=== PATIENT | female | born 1970 | race African-American/Black ===

== ENCOUNTER 2017-01-02 10:15 | Inpatient (IN) | payer OTHER ==
[2017-01-02 11:27] VITALS: BMI 22.2
--- NOTE | 2017-01-02 13:25 | HP ---
COWS - Scale Resting Pulse: 1= [place] 81-100 Sweatin= Chills/Flushing Restless Observation: 3= Extraneous Movement Pupil Size: 0= Normal to Room Light Bone or Joint Aches: 4=Acute Joint/Muscle Pain Runny Nose/ Eye Tearin= Nasal Congestion GI Upset > 30mins: 1= Stomach Cramp Tremor Observation: 1= Tremor [place], Not Seen Yawning Observation: 2= >3x During Session Anxiety or Irritability: 2=Irritable/Anxious Goose Flesh Skin: 0=Smooth Skin COWS Score: 16 Admission ROS S - HPI Chief Complaint: DETOX TX FOR HEROIN DEPENDENCE Allergies/Adverse Reactions: Allergies Allergy/AdvReac Type Severity Reaction Status Date / Time No Known Allergies Allergy Verified 01/02/17 11:57 History of Present Illness: 46 Y/O AA/FEMALE WITH A HX OF HEROIN/CRACK DEPENDENCE SEEKING DETOX TX. FIRST TIME HERE. Exam Limitations: No Limitations - Ebola screening Have you traveled outside of the country in the last 21 days: No Have you had contact with anyone from an Ebola affected area: No Have you been sick,other than usual withdrawal symptoms: No - Review of Systems Constitutional: Chills, Loss of Appetite, Night Sweats, Changes in sleep, Unintentional Wgt. Loss EENT: reports: Tearing, Nose Congestion, Dental Problems (MISSING TEETH) Respiratory: reports: Shortness of Breath (HX BRONCHIAL ASTHMA), Wheezing Cardiac: reports: Lightheadedness GI: reports: Constipated, Diarrhea, Nausea, Poor Appetite, Poor Fluid Intake, Vomiting : reports: Frequency, Urgency Musculoskeletal: reports: Back Pain, Joint Pain, Muscle Pain Integumentary: reports: Rash (ITCHY ON BOTH EYELIDS--USES RX CREAM ON IT BUT LEFT IT HOME.) Neuro: reports: Headache, Seizure, Tremors, Dizziness Endocrine: reports: No Symptoms Reported Hematology: reports: No Symptoms Reported Psychiatric: reports: Orientated x3, Depressed Other Systems: Reviewed and Negative Patient History - Patient Medical History Hx Anemia: Yes Hx Asthma: Yes (MDI) Hx Chronic Obstructive Pulmonary Disease (COPD): No Hx Cardiac Disorders: No Hx Hypertension: No Hx Hypercholesterolemia: No Hx Seizures: Yes (r/t head tarauma-last episode was at age 21) Hx Diabetes: No Hx Gastrointestinal Disorders: No Hx Genitourinary Disorders: No Hx Sexually Transmitted Disorders: No Hx Renal Disease (ESRD): No Hx Thyroid Disease: No Hx Human Immunodeficiency Virus (HIV): No (NEGATIVE HX) Hx Hepatitis C: No Hx Depression: Yes (ON MED) Hx Suicide Attempt: No (DENIES) Hx Schizophrenia: No - Patient Surgical History Past Surgical History: No Hx Neurologic Surgery: No Hx Cataract Extraction: No Hx Cardiac Surgery: No Hx Lung Surgery: No Hx Breast Surgery: No Hx Breast Biopsy: No Hx Abdominal Surgery: No Hx Appendectomy: No Hx Cholecystectomy: No Hx Genitourinary Surgery: No Hx Section: No Hx Orthopedic Surgery: No Hx Hysterectomy: No Anesthesia Reaction: No - PPD History Previous Implant?: Yes Documented Results: Negative w/o proof Implanted On Prior R Admission?: No PPD to be Administered?: Yes - Reproductive History Patient is a Female of Child Bearing Age (11 -55 yrs old): Yes Last Menstrual Period: 12/06/16 Patient : No - Smoking Cessation Smoking history: Current every day smoker Have you smoked in the past 12 months: Yes Aproximately how many cigarettes per day: 6 Hx Chewing Tobacco Use: No Initiated information on smoking cessation: Yes 'Breaking Loose' booklet given: 01/02/17 - Substance & Tx. History Hx Alcohol Use: ("ONCE IN A BLUE") Hx Substance Use: Yes (HEROIN/COCAINE) Substance Use Type: Alcohol (ON OCASSIONS), Cocaine, Heroin Hx Substance Use Treatment: Yes (OPD) - Substances Abused Heroin Route: Inhalation Frequency: Daily Amount used: 9 bags Age of first use: 24 Date of Last Use: 01/01/17 Crack Route: Smoking Frequency: Daily Amount used: $100 Age of first use: 30 Date of Last Use: 01/01/17 Family Disease History - Family Disease History Family History: Denies Admission Physical Exam BHS - Vital Signs Vital Signs: Vital Signs - 24 hr 01/02/17 11:21 Temperature 96.3 F L Pulse Rate 83 Respiratory 20 Rate Blood Pressure 110/64 - Physical General Appearance: Yes: Moderate Distress, Irritable, Anxious HEENTM: Yes: EOMI, Normocephalic, TEE, Pharynx Normal Respiratory: Yes: Chest Non-Tender, Lungs Clear, Normal Breath Sounds, No Respiratory Distress Neck: Yes: No masses,lesions,Nodules, Supple, Trachea in good position Breast: Yes: Breast Exam Deferred Cardiology: Yes: Regular Rhythm, Regular Rate, S1, S2 Abdominal: Yes: Normal Bowel Sounds, Non Tender, Flat, Soft Genitourinary: Yes: Other (N/C) Back: Yes: Within Normal Limits Musculoskeletal: Yes: full range of Motion, Gait Steady Extremities: Yes: Normal Range of Motion, Non-Tender Neurological: Yes: transonic engineer II-XII NML intact, Fully Oriented, Alert Integumentary: Yes: Dry, Warm Lymphatic: Yes: Within Normal Limits - Diagnostic (1) Opioid dependence with withdrawal Current Visit: Yes Status: Acute (2) Cocaine dependence, uncomplicated Current Visit: Yes Status: Acute (3) History of asthma Current Visit: Yes Status: Chronic (4) Seizure after head injury Current Visit: Yes Status: Suspected Comment: A CHILD--TV FELL ON HEAD Cleared for Admission [facility] - Detox or Rehab [facility] Level of Care: Medically Managed Detox Regimen/Protocol: Methadone [facility] Breath Alcohol Content Breath Alcohol Content: 0 Urine Pregancy Test - Result Urine Test Results: Negative- NO Line Present Urine Drug Screen - Results Drug Screen Negative: No Urine Drug Screen Results: DENISA-Cocaine, OPI-Opiates, MTD-Methadone, TCA- Tricyclic Antidepress
[2017-01-02] MEDS ORDERED: LOPERAMIDE HCL 2 MG CAPSULE PO PRN (13:35)
[2017-01-02] MEDS ORDERED: MENTHOL/PHENOL 1 EACH UD MM PRN (13:35)
[2017-01-02] MEDS ORDERED: IBUPROFEN 400 MG TABLET (FP) PO PRN (13:35)
[2017-01-02] MEDS ORDERED: diphenhydrAMINE HCL 50 MG CAPSULE PO PRN (13:35)
[2017-01-02] MEDS ORDERED: MAGNESIUM HYDROX 2400MG/30ML ORAL SUSPENSION 30 ML CUP PO PRN (13:35)
[2017-01-02] MEDS ORDERED: MAGNESIUM CITRATE 300 ML BOTTLE PO PRN (13:35)
[2017-01-02] MEDS ORDERED: diazePAM 5 MG TABLET PO PRN (13:35)
[2017-01-02] MEDS ORDERED: hydrOXYzine PAMOATE 25 MG CAPSULE (FP) PO PRN (13:35)
[2017-01-02] MEDS ORDERED: MAG HYDROX/AL HYDROX/SIMETH 30 ML UNIT-DOSE CUP PO PRN (13:35)
[2017-01-02] MEDS ORDERED: P-EPHED 60MG/TRIPROLIDI 2.5MG TABLET PO PRN (13:35)
[2017-01-02] MEDS ORDERED: guaiFENesin/D-METHORPHAN HB 10 ML UNIT-DOSE CUPS PO PRN (13:35)
[2017-01-02] MEDS ORDERED: NICOTINE POLACRILEX 2 MG GUM BUC PRN (13:35)
[2017-01-02] MEDS ORDERED: ACETAMINOPHEN 325 MG TABLET (FP) PO PRN (13:35)
[2017-01-02] MEDS ORDERED: ALBUTEROL SO4 18 GM HFA INHALER IH PRN (13:38)
[2017-01-02] MEDS ORDERED: METHADONE HCL 10 MG TABLET (FOR DETOX USE ONLY) PO ONE ×2 (14:00→23:00)
[2017-01-02] MEDS: NICOTINE 14 MG/24 HOURS TOPICAL PATCH TD SCH (15:05)
--- NOTE | 2017-01-02 16:14 | CONSULT ---
[facility] Psychiatric Consult - Data Date of interview: 01/02/17 Admission source: [facility] Identifying data: First admission to [facility] for this 46 y/o AA female seeking detox treatment,[address] [place],for heroin and cocaine dependence.Patient is single,a mother of six,domiciled,unemployed and supported on SSI benefits. Substance Abuse History: - Smoking Cessation. Smoking history: Current every day smoker. Have you smoked in the past 12 months: Yes. Aproximately how many cigarettes per day: 6. Hx Chewing Tobacco Use: No. Initiated information on smoking cessation: Yes. 'Breaking Loose' booklet given: 01/02/17. - Substance & Tx. History. Hx Alcohol Use: ("ONCE IN A BLUE"). Hx Substance Use: Yes ( HEROIN/COCAINE). Substance Use Type: Alcohol (ON OCASSIONS), Cocaine, Heroin. Hx Substance Use Treatment: Yes (OPD). - Substances Abused. Heroin. Route : Inhalation. Frequency: Daily. Amount used: 9 bags. Age of first use: 24. Date of Last Use: 01/01/17. Crack. Route: Smoking. Frequency: Daily. Amount used: $100. Age of first use: 30. Date of Last Use: 01/01/17. Confirmed by patient. Medical History: Bronchial asthma,low back pain,anemia and a history of seizures (post head trauma at age 18). Psychiatric History: No reported history of psychiatric hospitalizations.Diagnosed with MDD.Prescribed seroquel 200 mg/hs + trazodone 150 mg/hs.Ms Pittman gets her psychiatric OPD care at the [facility] in [facility].She denies history of suicide attempts. Physical/Sexual Abuse/Trauma History: Patient denies. Additional Comment: Urine Drug Screen Results: DENISA-Cocaine, OPI-Opiates, MTD- Methadone, TCA-Tricyclic Antidepressant.Noted. Mental Status Exam - Mental Status Exam Alert and Oriented to: Time, Place, Person Cognitive Function: Good Patient Appearance: Well Groomed Mood: Withdrawn Affect: Constricted Patient Behavior: Sedated (light sedation), Fatigued, Cooperative Speech Pattern: Clear Voice Loudness: Normal Thought Process: Goal Oriented Thought Disorder: Not Present Hallucinations: Denies Suicidal Ideation: Denies Homicidal Ideation: Denies Insight/Judgement: Poor Sleep: Poorly, Difficulty falling asleep Appetite: Fair Muscle strength/Tone: Normal Gait/Station: Normal Psychiatric Findings - Problem List ([place] 1, 2,3) (1) Cocaine dependence, uncomplicated Current Visit: Yes Status: Acute (2) Opioid dependence with withdrawal Current Visit: Yes Status: Acute (3) Nicotine dependence Current Visit: Yes Status: Acute (4) Substance induced mood disorder Current Visit: Yes Status: Acute (5) Mood disorder Current Visit: Yes Status: Chronic (6) History of asthma Current Visit: Yes Status: Chronic (7) Seizure after head injury Current Visit: Yes Status: Suspected Comment: A CHILD--TV FELL ON HEAD - Initial Treatment Plan Initial Treatment Plan: Psychoeducation.Detoxification is initiated.Medications : seroquel 100 mg po hs + trazodone 50 mg po hs.Pharmacy claims : no data.No information about date of last medication intake.Call made to Pharmacy on file, [facility] @ [phone] (patient gave verbal authorization) : no seroquel or trazodone filled or prescribed.Ms Pittman insists on resuming these two medications.Will initiate treatment with seroquel 100 mg po hs + trazodone 50 mg po hs.Side effects/benefits discussed with patient.She is in agreement with this careplan.Observation.
[2017-01-02 19:07] LABS: URINE APPEARANCE SLCLOUDY; URINE BILIRUBIN NEGATIVE (NEGATIVE); URINE BLOOD NEGATIVE (NEGATIVE); URINE COLOR AMBER; URINE GLUCOSE (UA) NEGATIVE (NEGATIVE); URINE KETONE NEGATIVE (NEGATIVE); URINE LEUK ESTERASE NEGATIVE (NEGATIVE); URINE NITRITE NEGATIVE (NEGATIVE); URINE UROBILINOGEN 2.0 E.U/dl E.U./dl (0.2-1.0)
[2017-01-02 19:08] LABS: URINE PROTEIN 1+ (NEGATIVE)
[2017-01-02 19:12] LABS: URINE BACTERIA MANY /hpf (NONE SEEN); URINE HYALINE CAST 2 /lpf; URINE MUCUS MANY; URINE RBC 2 /hpf (0-3); URINE WBC 4 /hpf (3-5)
[2017-01-02 19:48] LABS: HIV 1 & 2 AB NEGATIVE; HIV 1 AGp24 NEGATIVE
[2017-01-02] MEDS: traZODone HCL 50 MG TABLET (FP) PO SCH (22:33)
[2017-01-02] MEDS: QUEtiapine FUMARATE 100 MG TABLET (FP) PO SCH (22:33)
[2017-01-02] MEDS: THIAMINE HCL 100 MG TABLET (FP) PO SCH (22:33)
[2017-01-03] MEDS ORDERED: METHADONE HCL 10 MG TABLET (FOR DETOX USE ONLY) PO ONE (10:00)
[2017-01-03 10:03] LABS: MCH 25.9 pg (25.7-33.7); MCHC 32.3 g/dl (32.0-36.0); MEAN CELL VOLUME 80.2 fl (80-96); MEAN PLT VOLUME 8.9 fl (7.5-11.1); PLATELET COUNT 201 K/MM3 (134-434); RDW 17.3 % (11.6-15.6); WHITE BLOOD COUNT 3.5 K/mm3 (4.0-10.0)
[2017-01-03] MEDS: PRENATAL VITAMINS W/ FOLIC ACID TABLET (FP) PO SCH (10:25)
[2017-01-03] MEDS: NICOTINE 14 MG/24 HOURS TOPICAL PATCH TD SCH (10:27)
--- NOTE | 2017-01-03 11:01 | PN ---
BHS COWS - Scale Resting Pulse: 0= [place] 80 or Below Sweatin=Flushed/Facial Moisture Restless Observation: 1= Difficult to Sit Still Pupil Size: 0= Normal to Room Light Bone or Joint Aches: 2= Severe Diffuse Aches Runny Nose/ Eye Tearin= Nasal Congestion GI Upset > 30mins: 1= Stomach Cramp Tremor Observation of Outstretched Hands: 2= Slight Tremor Visible Yawning Observation: 2= >3x During Session Anxiety or Irritability: 2=Irritable/Anxious Goose Flesh Skin: 0=Smooth Skin COWS Score: 13 BHS Progress Note (SOAP) Subjective: shakes sweats irritable agitation body aches Objective: 01/03/17 11:00 Vital Signs Temperature 98.2 F 01/03/17 09:13 Pulse Rate 72 01/03/17 09:13 Respiratory Rate 16 01/03/17 09:13 Blood Pressure 125/71 01/03/17 09:13 O2 Sat by Pulse Oximetry (%) Laboratory Tests 01/02/17 01/02/17 01/03/17 13:15 17:30 06:00 WBC 3.5 L RBC 4.65 Hgb 12.0 Hct 37.3 MCV 80.2 MCHC 32.3 RDW 17.3 H Plt Count 201 MPV 8.9 Urine Color [place] Urine Appearance Slcloudy Urine pH 5.0 Ur Specific [place] 1.020 Urine Protein 1+ H Urine Glucose (UA) Negative Urine Ketones Negative Urine Blood Negative Urine Nitrite Negative Urine Bilirubin Negative Urine Urobilinogen 2.0 e.u/dl H Ur Leukocyte Esterase Negative Urine RBC 2 Urine WBC 4 Ur Epithelial Cells Few Urine Bacteria Many Hyaline Casts 2 Urine Mucus Many HIV 1&2 Antibody Screen Negative HIV P24 Antigen Negative repeat u/a labs pending awake/alert ambulating no acute distress Assessment: 01/03/17 11:01 withdrawal sx Plan: continue detox increase fluids labs pending
[2017-01-03 11:02] LABS: ALBUMIN 3.6 g/dl (3.4-5.0); ALK PHOS 75 U/L (45-117); ANION GAP 8 (8-16); BILIRUBIN,TOTAL 0.4 mg/dL (0.2-1.0); CALCIUM 8.3 mg/dL (8.5-10.1); CO2 27 mmol/L (21-32); COCKROFT - GAULT 119.085; CREATININE 0.6 mg/dL (0.55-1.02); GLUCOSE,RANDOM 70 mg/dL (74-106); SGOT/AST 19 U/L (15-37); SGPT/ALT 16 U/L (12-78); TOT PROT 6.9 g/dl (6.4-8.2)
[2017-01-03 15:12] LABS: SICKLE CELL SCREEN NEGATIVE (NEGATIVE)
--- NOTE | 2017-01-03 17:38 | EKG ---
Test Reason : Blood Pressure : / mmHG Vent. Rate : 082 BPM Atrial Rate : 082 BPM P-R Int : 162 ms QRS Dur : 086 ms QT Int : 408 ms P-R-T Axes : 080 079 079 degrees QTc Int : 476 ms NORMAL SINUS RHYTHM T WAVE ABNORMALITY, CONSIDER ANTERIOR ISCHEMIA ABNORMAL ECG NO PREVIOUS ECGS AVAILABLE Confirmed by PHIL ADAMSON MD ([id number]) on 01/03/2017 5:37:45 PM Referred By: Confirmed By:PHIL ADAMSON MD
[2017-01-03] MEDS: QUEtiapine FUMARATE 100 MG TABLET (FP) PO SCH (22:38)
[2017-01-03] MEDS: traZODone HCL 50 MG TABLET (FP) PO SCH (22:38)
[2017-01-03] MEDS: THIAMINE HCL 100 MG TABLET (FP) PO SCH (22:38)
[2017-01-04] MEDS ORDERED: COLLOIDAL OATMEAL 1 BAR EACH TP PRN (09:18)
[2017-01-04] MEDS ORDERED: CYCLOBENZAPRINE HCL 10 MG TABLET (FP) PO PRN (09:19)
--- NOTE | 2017-01-04 09:22 | PN ---
BHS COWS - Scale Resting Pulse: 0= [place] 80 or Below Sweatin= Chills/Flushing Restless Observation: 3= Extraneous Movement Pupil Size: 1= Pupils >than Normal Bone or Joint Aches: 2= Severe Diffuse Aches Runny Nose/ Eye Tearin= Runny Nose/Eyes GI Upset > 30mins: 2= Nausea/Diarrhea Tremor Observation of Outstretched Hands: 2= Slight Tremor Visible Yawning Observation: 1= 1-2x During Session Anxiety or Irritability: 2=Irritable/Anxious Goose Flesh Skin: 0=Smooth Skin COWS Score: 16 BHS Progress Note (SOAP) Subjective: ALERT,IRRITABLE,ANXIOUS,INTERRUPTED SLEEP,TREMOR,PAIN IN THE BODY AND BACK Objective: 01/04/17 09:21 Laboratory Last Values WBC 3.5 K/mm3 (4.0-10.0) L 01/03/17 06:00 RBC 4.65 M/mm3 (3.60-5.2) 01/03/17 06:00 Hgb 12.0 GM/dL (10.7-15.3) 01/03/17 06:00 Hct 37.3 % (32.4-45.2) 01/03/17 06:00 MCV 80.2 fl (80-96) 01/03/17 06:00 MCHC 32.3 g/dl (32.0-36.0) 01/03/17 06:00 RDW 17.3 % (11.6-15.6) H 01/03/17 06:00 Plt Count 201 K/MM3 (134-434) 01/03/17 06:00 MPV 8.9 fl (7.5-11.1) 01/03/17 06:00 Sickle Cell Screen Negative (NEGATIVE) 01/03/17 06:00 Sodium 139 mmol/L (136-145) 01/03/17 06:00 Potassium 4.2 mmol/L (3.5-5.1) 01/03/17 06:00 Chloride 104 mmol/L (98-107) 01/03/17 06:00 Carbon Dioxide 27 mmol/L (21-32) 01/03/17 06:00 Anion Gap 8 (8-16) 01/03/17 06:00 BUN 5 mg/dL (7-18) L 01/03/17 06:00 Creatinine 0.6 mg/dL (0.55-1.02) 01/03/17 06:00 Creat Clearance w eGFR > 60 (>60) 01/03/17 06:00 Random Glucose 70 mg/dL (74-106) L 01/03/17 06:00 Calcium 8.3 mg/dL (8.5-10.1) L 01/03/17 06:00 Total Bilirubin 0.4 mg/dL (0.2-1.0) 01/03/17 06:00 AST 19 U/L (15-37) 01/03/17 06:00 ALT 16 U/L (12-78) 01/03/17 06:00 Alkaline Phosphatase 75 U/L (45-117) 01/03/17 06:00 Total Protein 6.9 g/dl (6.4-8.2) 01/03/17 06:00 Albumin 3.6 g/dl (3.4-5.0) 01/03/17 06:00 Urine Color Belkis 01/02/17 17:30 Urine Appearance Slcloudy 01/02/17 17:30 Urine pH 5.0 (5.0-8.0) 01/02/17 17:30 Ur Specific [place] 1.020 (1.001-1.035) 01/02/17 17:30 Urine Protein 1+ (NEGATIVE) H 01/02/17 17:30 Urine Glucose (UA) Negative (NEGATIVE) 01/02/17 17:30 Urine Ketones Negative (NEGATIVE) 01/02/17 17:30 Urine Blood Negative (NEGATIVE) 01/02/17 17:30 Urine Nitrite Negative (NEGATIVE) 01/02/17 17:30 Urine Bilirubin Negative (NEGATIVE) 01/02/17 17:30 Urine Urobilinogen 2.0 e.u/dl E.U./dl (0.2-1.0) H 01/02/17 17:30 Ur Leukocyte Esterase Negative (NEGATIVE) 01/02/17 17:30 Urine RBC 2 /hpf (0-3) 01/02/17 17:30 Urine WBC 4 /hpf (3-5) 01/02/17 17:30 Ur Epithelial Cells Few /hpf (FEW) 01/02/17 17:30 Urine Bacteria Many /hpf (NONE SEEN) 01/02/17 17:30 Hyaline Casts 2 /lpf 01/02/17 17:30 Urine Mucus Many 01/02/17 17:30 RPR Titer Nonreactive (NONREACTIVE) 01/03/17 06:00 HIV 1&2 Antibody Screen Negative 01/02/17 13:15 HIV P24 Antigen Negative 01/02/17 13:15 Vital Signs Temperature 97.9 F 01/04/17 06:28 Pulse Rate 55 L 01/04/17 06:28 Respiratory Rate 16 01/04/17 06:28 Blood Pressure 120/67 01/04/17 06:28 O2 Sat by Pulse Oximetry (%) Assessment: 01/04/17 09:22 WITHDRAWAL SYMPTOM Plan: CONTINUE DETOX
[2017-01-04] MEDS ORDERED: METHADONE HCL 5 MG TABLET (FOR DETOX USE ONLY) PO ONE (10:00)
[2017-01-04] MEDS: PRENATAL VITAMINS W/ FOLIC ACID TABLET (FP) PO SCH (10:20)
[2017-01-04] MEDS: NICOTINE 14 MG/24 HOURS TOPICAL PATCH TD SCH (10:22)
[2017-01-04] MEDS: cloNIDine HCL 0.1 MG TABLET PO SCH ×2 (11:34→22:34)
[2017-01-04] MEDS: traZODone HCL 50 MG TABLET (FP) PO SCH (22:34)
[2017-01-04] MEDS: QUEtiapine FUMARATE 100 MG TABLET (FP) PO SCH (22:34)
[2017-01-04] MEDS: THIAMINE HCL 100 MG TABLET (FP) PO SCH (22:34)
[2017-01-05] MEDS ORDERED: METHADONE HCL 5 MG TABLET (FOR DETOX USE ONLY) PO ONE (10:00)
[2017-01-05] MEDS: PRENATAL VITAMINS W/ FOLIC ACID TABLET (FP) PO SCH (10:24)
[2017-01-05] MEDS: cloNIDine HCL 0.1 MG TABLET PO SCH ×2 (10:25→22:14)
[2017-01-05] MEDS: NICOTINE 14 MG/24 HOURS TOPICAL PATCH TD SCH (10:25)
[2017-01-05] MEDS ORDERED: HYDROCORTISONE 1% TOPICAL CREAM 30 GM TUBE TP PRN (11:58)
--- NOTE | 2017-01-05 12:05 | PN ---
S Progress Note (SOAP) Subjective: anxiety, interrupted sleep, muscle aches,facial rash Objective: 01/05/17 12:02 Vital Signs - 8 hr 01/05/17 01/05/17 06:00 10:33 Temperature 98.1 F 98.6 F Pulse Rate 54 L 66 Respiratory 18 18 Rate Blood Pressure 125/66 126/70 Laboratory Last Values WBC 3.5 K/mm3 (4.0-10.0) L 01/03/17 06:00 RBC 4.65 M/mm3 (3.60-5.2) 01/03/17 06:00 Hgb 12.0 GM/dL (10.7-15.3) 01/03/17 06:00 Hct 37.3 % (32.4-45.2) 01/03/17 06:00 MCV 80.2 fl (80-96) 01/03/17 06:00 MCHC 32.3 g/dl (32.0-36.0) 01/03/17 06:00 RDW 17.3 % (11.6-15.6) H 01/03/17 06:00 Plt Count 201 K/MM3 (134-434) 01/03/17 06:00 MPV 8.9 fl (7.5-11.1) 01/03/17 06:00 Sickle Cell Screen Negative (NEGATIVE) 01/03/17 06:00 Sodium 139 mmol/L (136-145) 01/03/17 06:00 Potassium 4.2 mmol/L (3.5-5.1) 01/03/17 06:00 Chloride 104 mmol/L (98-107) 01/03/17 06:00 Carbon Dioxide 27 mmol/L (21-32) 01/03/17 06:00 Anion Gap 8 (8-16) 01/03/17 06:00 BUN 5 mg/dL (7-18) L 01/03/17 06:00 Creatinine 0.6 mg/dL (0.55-1.02) 01/03/17 06:00 Creat Clearance w eGFR > 60 (>60) 01/03/17 06:00 Random Glucose 70 mg/dL (74-106) L 01/03/17 06:00 Calcium 8.3 mg/dL (8.5-10.1) L 01/03/17 06:00 Total Bilirubin 0.4 mg/dL (0.2-1.0) 01/03/17 06:00 AST 19 U/L (15-37) 01/03/17 06:00 ALT 16 U/L (12-78) 01/03/17 06:00 Alkaline Phosphatase 75 U/L (45-117) 01/03/17 06:00 Total Protein 6.9 g/dl (6.4-8.2) 01/03/17 06:00 Albumin 3.6 g/dl (3.4-5.0) 01/03/17 06:00 Urine Color Belkis 01/02/17 17:30 Urine Appearance Slcloudy 01/02/17 17:30 Urine pH 5.0 (5.0-8.0) 01/02/17 17:30 Ur Specific [place] 1.020 (1.001-1.035) 01/02/17 17:30 Urine Protein 1+ (NEGATIVE) H 01/02/17 17:30 Urine Glucose (UA) Negative (NEGATIVE) 01/02/17 17:30 Urine Ketones Negative (NEGATIVE) 01/02/17 17:30 Urine Blood Negative (NEGATIVE) 01/02/17 17:30 Urine Nitrite Negative (NEGATIVE) 01/02/17 17:30 Urine Bilirubin Negative (NEGATIVE) 01/02/17 17:30 Urine Urobilinogen 2.0 e.u/dl E.U./dl (0.2-1.0) H 01/02/17 17:30 Ur Leukocyte Esterase Negative (NEGATIVE) 01/02/17 17:30 Urine RBC 2 /hpf (0-3) 01/02/17 17:30 Urine WBC 4 /hpf (3-5) 01/02/17 17:30 Ur Epithelial Cells Few /hpf (FEW) 01/02/17 17:30 Urine Bacteria Many /hpf (NONE SEEN) 01/02/17 17:30 Hyaline Casts 2 /lpf 01/02/17 17:30 Urine Mucus Many 01/02/17 17:30 RPR Titer Nonreactive (NONREACTIVE) 01/03/17 06:00 HIV 1&2 Antibody Screen Negative 01/02/17 13:15 HIV P24 Antigen Negative 01/02/17 13:15 Labs noted Assessment: 01/05/17 12:02 withdrawal sx, facial rash Plan: continue detox, hydrocortisone cream to the face
[2017-01-05] MEDS: traZODone HCL 50 MG TABLET (FP) PO SCH (22:14)
[2017-01-05] MEDS: QUEtiapine FUMARATE 100 MG TABLET (FP) PO SCH (22:14)
[2017-01-05] MEDS: THIAMINE HCL 100 MG TABLET (FP) PO SCH (22:14)
[2017-01-06] MEDS ORDERED: METHADONE HCL 10 MG TABLET (FOR DETOX USE ONLY) PO ONE (10:00)
[2017-01-06] MEDS: PRENATAL VITAMINS W/ FOLIC ACID TABLET (FP) PO SCH (10:15)
[2017-01-06] MEDS: cloNIDine HCL 0.1 MG TABLET PO SCH ×2 (10:15→22:14)
[2017-01-06] MEDS: NICOTINE 14 MG/24 HOURS TOPICAL PATCH TD SCH (10:17)
--- NOTE | 2017-01-06 10:58 | PN ---
BHS Progress Note (SOAP) Subjective: Sweating,restless Objective: 01/06/17 10:57 Vital Signs - 8 hr 01/06/17 01/06/17 01/06/17 03:30 06:00 09:35 Temperature 97.9 F 97.9 F Pulse Rate 53 L 67 Respiratory 18 16 16 Rate Blood Pressure 150/83 109/64 Laboratory Last Values WBC 3.5 K/mm3 (4.0-10.0) L 01/03/17 06:00 RBC 4.65 M/mm3 (3.60-5.2) 01/03/17 06:00 Hgb 12.0 GM/dL (10.7-15.3) 01/03/17 06:00 Hct 37.3 % (32.4-45.2) 01/03/17 06:00 MCV 80.2 fl (80-96) 01/03/17 06:00 MCHC 32.3 g/dl (32.0-36.0) 01/03/17 06:00 RDW 17.3 % (11.6-15.6) H 01/03/17 06:00 Plt Count 201 K/MM3 (134-434) 01/03/17 06:00 MPV 8.9 fl (7.5-11.1) 01/03/17 06:00 Sickle Cell Screen Negative (NEGATIVE) 01/03/17 06:00 Sodium 139 mmol/L (136-145) 01/03/17 06:00 Potassium 4.2 mmol/L (3.5-5.1) 01/03/17 06:00 Chloride 104 mmol/L (98-107) 01/03/17 06:00 Carbon Dioxide 27 mmol/L (21-32) 01/03/17 06:00 Anion Gap 8 (8-16) 01/03/17 06:00 BUN 5 mg/dL (7-18) L 01/03/17 06:00 Creatinine 0.6 mg/dL (0.55-1.02) 01/03/17 06:00 Creat Clearance w eGFR > 60 (>60) 01/03/17 06:00 Random Glucose 70 mg/dL (74-106) L 01/03/17 06:00 Calcium 8.3 mg/dL (8.5-10.1) L 01/03/17 06:00 Total Bilirubin 0.4 mg/dL (0.2-1.0) 01/03/17 06:00 AST 19 U/L (15-37) 01/03/17 06:00 ALT 16 U/L (12-78) 01/03/17 06:00 Alkaline Phosphatase 75 U/L (45-117) 01/03/17 06:00 Total Protein 6.9 g/dl (6.4-8.2) 01/03/17 06:00 Albumin 3.6 g/dl (3.4-5.0) 01/03/17 06:00 Urine Color Belk[place] 01/02/17 17:30 Urine Appearance Slcloudy 01/02/17 17:30 Urine pH 5.0 (5.0-8.0) 01/02/17 17:30 Ur Specific [place] 1.020 (1.001-1.035) 01/02/17 17:30 Urine Protein 1+ (NEGATIVE) H 01/02/17 17:30 Urine Glucose (UA) Negative (NEGATIVE) 01/02/17 17:30 Urine Ketones Negative (NEGATIVE) 01/02/17 17:30 Urine Blood Negative (NEGATIVE) 01/02/17 17:30 Urine Nitrite Negative (NEGATIVE) 01/02/17 17:30 Urine Bilirubin Negative (NEGATIVE) 01/02/17 17:30 Urine Urobilinogen 2.0 e.u/dl E.U./dl (0.2-1.0) H 01/02/17 17:30 Ur Leukocyte Esterase Negative (NEGATIVE) 01/02/17 17:30 Urine RBC 2 /hpf (0-3) 01/02/17 17:30 Urine WBC 4 /hpf (3-5) 01/02/17 17:30 Ur Epithelial Cells Few /hpf (FEW) 01/02/17 17:30 Urine Bacteria Many /hpf (NONE SEEN) 01/02/17 17:30 Hyaline Casts 2 /lpf 01/02/17 17:30 Urine Mucus Many 01/02/17 17:30 RPR Titer Nonreactive (NONREACTIVE) 01/03/17 06:00 HIV 1&2 Antibody Screen Negative 01/02/17 13:15 HIV P24 Antigen Negative 01/02/17 13:15 labs noted repeat u/a is pending Assessment: 01/06/17 10:58 withdrawal sx. Plan: continue detox
[2017-01-06] MEDS: traZODone HCL 50 MG TABLET (FP) PO SCH (22:14)
[2017-01-06] MEDS: QUEtiapine FUMARATE 100 MG TABLET (FP) PO SCH (22:14)
[2017-01-06] MEDS: THIAMINE HCL 100 MG TABLET (FP) PO SCH (22:14)
[2017-01-07] MEDS ORDERED: METHADONE HCL 5 MG TABLET (FOR DETOX USE ONLY) PO ONE (06:00)
[2017-01-07 06:21] VITALS: BP 120/79; PULSE 59; TEMP 97.7
--- NOTE | 2017-01-07 09:05 | DS ---
[facility] Detox Discharge Summary Admission Date: 01/02/17 Discharge Date: 01/07/17 - History Present History: Cocaine Dependence, Opioid Dependence - Physical Exam Results Vital Signs: Vital Signs Temperature 97.7 F 01/07/17 06:21 Pulse Rate 59 L 01/07/17 06:21 Respiratory Rate 18 01/07/17 06:21 Blood Pressure 120/79 01/07/17 06:21 O2 Sat by Pulse Oximetry (%) - Treatment Hospital Course: Detox Protocol Followed, Detoxed Safely, Responded well, Discharged Condition Good - Medication Discharge Medications: Ambulatory Orders Albuterol Sulfate Inhaler - [Ventolin Hfa Inhaler -] 2 inh PO Q4H PRN 01/02/17 Quetiapine Fumarate [Seroquel -] 200 mg PO HS 01/02/17 Trazodone HCl [Desyrel -] 150 mg PO HS 01/02/17 - Diagnosis (1) Cocaine dependence, uncomplicated Status: Chronic (2) Nicotine dependence Status: Chronic Qualifiers: Nicotine product type: cigarettes Substance use status: uncomplicated Qualified Code(s): F17.210 - Nicotine dependence, cigarettes, uncomplicated (3) Opioid dependence with withdrawal Status: Acute (4) History of asthma Status: Chronic - AMA Did Patient Leave Against Medical Advice: No
== END 2017-01-07 07:12 | disposition home or self-care (01) | DRG 773 ==
LOC: YASAS 10:15 → Y6N 12:37
PROVIDERS: ADMIT Internal Medicine Addiction Medicine; ATTEND Internal Medicine Addiction Medicine
PROC: HZ2ZZZZ Detoxification Services for Substance Abuse Treatment (ICD-10-PCS; principal; 2017-01-07)
DX: F11.23 Opioid dependence with withdrawal (principal); F14.20 Cocaine dependence, uncomplicated; F17.210 Nicotine dependence, cigarettes, uncomplicated; F19.24 Other psychoactive substance dependence with psychoactive substance-induced mood disorder; F39 Unspecified mood [affective] disorder; J45.909 Unspecified asthma, uncomplicated
CPT/HCPCS: 36415; 80053; 81003; 81015; 85027; 85660; 86593; 87389; 93005; 93010

== ENCOUNTER 2017-02-07 12:05 | Inpatient (IN) | payer OTHER ==
[2017-02-07 13:21] VITALS: BMI 22.5
--- NOTE | 2017-02-07 16:34 | HP ---
COWS - Scale Resting Pulse: 1= [place] 81-100 Sweatin=Flushed/Facial Moisture Restless Observation: 3= Extraneous Movement Pupil Size: 2= Moderately Dilated Bone or Joint Aches: 2= Severe Diffuse Aches Runny Nose/ Eye Tearin= Runny Nose/Eyes GI Upset > 30mins: 3= Vomiting/Diarrhea Tremor Observation: 2= Slight Tremor Visible Yawning Observation: 2= >3x During Session Anxiety or Irritability: 2=Irritable/Anxious Goose Flesh Skin: 0=Smooth Skin COWS Score: 21 CIWA Score - CIWA Score Nausea/Vomitin Muscle Tremors: 3 Anxiety: 3 Agitation: 3 Paroxysmal Sweats: 3 Orientation: 0-Oriented Tacttile Disturbances: 2-Mild Itch/Numbness/Burn Auditory Disturbances: 2-Mild Harshness/Frighten Visual Disturbances: 2-Mild Sensitivity Headache: 2-Mild CIWA-Ar Total Score: 23 Admission ROS BHS - HPI Chief Complaint: I NEED HELP TO STOP USING HEROIN AND ALCOHOL Allergies/Adverse Reactions: Allergies Allergy/AdvReac Type Severity Reaction Status Date / Time No Known Allergies Allergy Verified 02/07/17 16:27 History of Present Illness: THIS 46 YEARS OLD FEMALE WITH HEROIN AND ALCOHOL DEPENDENCE,SEEKING DETOX,LAST DETOX [facility] 01/02/15 TI 01/07/17 SYNCOPE ASTHMA LONGEST PERIOD OF SOBRIETY 5 YEARS Exam Limitations: No Limitations - Ebola screening Have you traveled outside of the country in the last 21 days: No Have you had contact with anyone from an Ebola affected area: No Have you been sick,other than usual withdrawal symptoms: No Do you have a fever: No - Review of Systems Constitutional: Chills, Diaphoresis, Loss of Appetite, Malaise, Night Sweats, Changes in sleep, Weakness, Unintentional Wgt. Loss EENT: reports: Tearing, Nose Congestion Respiratory: reports: No Symptoms reported (ASTHMA), Other Cardiac: reports: No Symptoms Reported, Palpitations GI: reports: Diarrhea, Nausea, Vomiting, Abdominal cramping : reports: No Symptoms Reported Musculoskeletal: reports: Back Pain, Joint Pain, Muscle Pain, Joint Stiffness Integumentary: reports: Dryness Neuro: reports: Headache, Tremors Endocrine: reports: No Symptoms Reported Hematology: reports: No Symptoms Reported Psychiatric: reports: No Sypmtoms Reported, Judgement Intact, Mood/Affect Appropiate, Orientated x3, Anxious, Depressed Patient History - Patient Medical History Hx Anemia: Yes Hx Asthma: Yes (MDI) Hx Chronic Obstructive Pulmonary Disease (COPD): No Hx Cardiac Disorders: No Hx Hypertension: No Hx Hypercholesterolemia: No Hx Seizures: Yes (r/t head tarauma-last episode was at age 21) Hx Dementia: No Hx Diabetes: No Hx Gastrointestinal Disorders: No Hx Liver Disease: No Hx Genitourinary Disorders: No Hx Sexually Transmitted Disorders: No Hx Renal Disease (ESRD): No Hx Thyroid Disease: No Hx Human Immunodeficiency Virus (HIV): No (NEGATIVE HX LAST 11/16) Hx Hepatitis C: No Hx Depression: Yes (ON MED ANXIETY) Hx Suicide Attempt: No (DENIES) Hx Bipolar Disorder: No Hx Schizophrenia: No Other Medical History: NO SUICIDAL,NO HOMICIDAL - Patient Surgical History Past Surgical History: No Hx Neurologic Surgery: No Hx Cataract Extraction: No Hx Cardiac Surgery: No Hx Lung Surgery: No Hx Breast Surgery: No Hx Breast Biopsy: No Hx Abdominal Surgery: No Hx Appendectomy: No Hx Cholecystectomy: No Hx Genitourinary Surgery: No Hx Section: No Hx Orthopedic Surgery: No Hx Hysterectomy: No Anesthesia Reaction: No - PPD History Previous Implant?: Yes Documented Results: Negative w/o proof Date: 01/04/17 Results: 0 MM PPD to be Administered?: No - Reproductive History Patient is a Female of Child Bearing Age (11 -55 yrs old): Yes Last Menstrual Period: 01/23/17 Patient : No - Smoking Cessation Smoking history: Current every day smoker Have you smoked in the past 12 months: Yes Aproximately how many cigarettes per day: 6 Cigars Per Day: 0 Hx Chewing Tobacco Use: No Initiated information on smoking cessation: Yes 'Breaking Loose' booklet given: 02/07/17 - Substance & Tx. History Hx Alcohol Use: Yes Hx Substance Use: Yes Substance Use Type: Alcohol, Heroin Hx Substance Use Treatment: Yes ([facility] 01/02/17 TO 01/07/17) - Substances Abused Alcohol Route: Oral Frequency: Daily Amount used: 2 PINTS OF LIQOUR/4 OF 24 OZS BEER Age of first use: 30 Date of Last Use: 02/06/17 Heroin Route: Inhalation Frequency: Daily Amount used: 8 BAGS Age of first use: 25 Date of Last Use: 02/06/17 Family Disease History - Family Disease History Family Disease History: CA: Mother (DECESED,CA LUNG), Other: Father (ALCOHOL,DSA ,), Mother Admission Physical Exam [facility] - Vital Signs Vital Signs: Vital Signs - 24 hr 02/07/17 13:15 Temperature 97.4 F L Pulse Rate 82 Respiratory 18 Rate Blood Pressure 125/74 - Physical General Appearance: Yes: Moderate Distress, Tremorous, Irritable, Sweating, Anxious HEENTM: Yes: Normal ENT Inspection, TEE, Pharynx Normal Respiratory: Yes: Within Normal Limits, Lungs Clear, Normal Breath Sounds, No Respiratory Distress Neck: Yes: Within Normal Limits Breast: Yes: Breast Exam Deferred Cardiology: Yes: Within Normal Limits, Regular Rhythm, Regular Rate, S1, S2 Abdominal: Yes: Within Normal Limits, Normal Bowel Sounds, Non Tender, Flat, Soft Genitourinary: Yes: Within Normal Limits Back: Yes: Within Normal Limits, Normal Inspection, Muscle Spasm Musculoskeletal: Yes: Back pain, Joint Stiffness, Muscle Pain Extremities: Yes: Within Normal Limits, Normal Range of Motion, Tremors Neurological: Yes: compensation and benefits advisor II-XII NML intact, Fully Oriented, Alert, Motor Strength 5/5 Integumentary: Yes: Dry, Rash Lymphatic: Yes: Within Normal Limits - Diagnostic (1) Opioid dependence with withdrawal Current Visit: No Status: Acute (2) History of asthma Current Visit: No Status: Chronic (3) Nicotine dependence Current Visit: No Status: Chronic Qualifiers: Nicotine product type: cigarettes Substance use status: uncomplicated Qualified Code(s): F17.210 - Nicotine dependence, cigarettes, uncomplicated (4) Seizure after head injury Current Visit: No Status: Suspected Comment: A CHILD--TV FELL ON HEAD (5) Alcohol dependence with uncomplicated withdrawal Current Visit: Yes Status: Acute (6) Weight loss Current Visit: Yes Status: Acute (7) Low back pain Current Visit: Yes Status: Acute (8) Contact dermatitis Current Visit: Yes Status: Acute (9) Anxiety and depression Current Visit: Yes Status: Acute Cleared for Admission [facility] - Detox or Rehab [facility] Level of Care: Medically Managed Detox Regimen/Protocol: Methadone/Librium [facility] Breath Alcohol Content Breath Alcohol Content: 0 Urine Pregancy Test - Result Urine Test Results: Negative- NO Line Present Urine Drug Screen - Results Drug Screen Negative: No Urine Drug Screen Results: DENISA-Cocaine, OPI-Opiates, TCA-Tricyclic Antidepress
[2017-02-07] MEDS ORDERED: MAGNESIUM CITRATE 300 ML BOTTLE PO PRN (16:51)
[2017-02-07] MEDS ORDERED: hydrOXYzine PAMOATE 50 MG CAPSULE (FP) PO PRN (16:51)
[2017-02-07] MEDS ORDERED: guaiFENesin/D-METHORPHAN HB 10 ML UNIT-DOSE CUPS PO PRN (16:51)
[2017-02-07] MEDS ORDERED: IBUPROFEN 400 MG TABLET (FP) PO PRN (16:51)
[2017-02-07] MEDS ORDERED: diphenhydrAMINE HCL 50 MG CAPSULE PO PRN (16:51)
[2017-02-07] MEDS ORDERED: P-EPHED 60MG/TRIPROLIDI 2.5MG TABLET PO PRN (16:51)
[2017-02-07] MEDS ORDERED: ACETAMINOPHEN 325 MG TABLET (FP) PO PRN (16:51)
[2017-02-07] MEDS ORDERED: MAGNESIUM HYDROX 2400MG/30ML ORAL SUSPENSION 30 ML CUP PO PRN (16:51)
[2017-02-07] MEDS ORDERED: MAG HYDROX/AL HYDROX/SIMETH 30 ML UNIT-DOSE CUP PO PRN (16:51)
[2017-02-07] MEDS ORDERED: LOPERAMIDE HCL 2 MG CAPSULE PO PRN (16:51)
[2017-02-07] MEDS ORDERED: MENTHOL/PHENOL 1 EACH UD MM PRN (16:51)
[2017-02-07] MEDS ORDERED: ALBUTEROL SO4 6.7 GM HFA INHALER IH PRN (16:54)
[2017-02-07] MEDS ORDERED: COLLOIDAL OATMEAL 1 BAR EACH TP PRN (17:40)
[2017-02-07] MEDS ORDERED: chlordiazePOXIDE HCL 25 MG CAPSULE PO PRN (17:48)
[2017-02-07] MEDS ORDERED: chlordiazePOXIDE HCL 25 MG CAPSULE PO ONE (18:15)
[2017-02-07] MEDS ORDERED: METHADONE HCL 10 MG TABLET (FOR DETOX USE ONLY) PO ONE ×2 (18:15→23:00)
[2017-02-07] MEDS: HYDROCORTISONE 0.5% TOPICAL CREAM 30 GM TUBE TP SCH (22:54)
[2017-02-07] MEDS: THIAMINE HCL 100 MG TABLET (FP) PO SCH (22:54)
[2017-02-07] MEDS: chlordiazePOXIDE HCL 25 MG CAPSULE PO SCH (22:54)
[2017-02-07 23:41] LABS: URINE APPEARANCE SLCLOUDY; URINE BILIRUBIN NEGATIVE (NEGATIVE); URINE BLOOD NEGATIVE (NEGATIVE); URINE COLOR YELLOW; URINE GLUCOSE (UA) NEGATIVE (NEGATIVE); URINE KETONE NEGATIVE (NEGATIVE); URINE LEUK ESTERASE NEGATIVE (NEGATIVE); URINE NITRITE NEGATIVE (NEGATIVE); URINE PROTEIN NEGATIVE (NEGATIVE); URINE UROBILINOGEN NEGATIVE E.U./dl (0.2-1.0)
[2017-02-08] MEDS: chlordiazePOXIDE HCL 25 MG CAPSULE PO SCH ×4 (05:26→22:27)
[2017-02-08] MEDS ORDERED: TRIMETHOBENZAMIDE HCL 200MG/2ML INJ IM PRN (09:10)
[2017-02-08 09:53] LABS: MCH 25.7 pg (25.7-33.7); MCHC 31.8 g/dl (32.0-36.0); MEAN CELL VOLUME 80.9 fl (80-96); MEAN PLT VOLUME 8.7 fl (7.5-11.1); PLATELET COUNT 166 K/MM3 (134-434); RDW 17.6 % (11.6-15.6)
[2017-02-08] MEDS ORDERED: METHADONE HCL 10 MG TABLET (FOR DETOX USE ONLY) PO SCH (10:00)
--- NOTE | 2017-02-08 10:07 | EKG ---
Test Reason : Blood Pressure : / mmHG Vent. Rate : 068 BPM Atrial Rate : 068 BPM P-R Int : 180 ms QRS Dur : 086 ms QT Int : 430 ms P-R-T Axes : 073 083 073 degrees QTc Int : 457 ms NORMAL SINUS RHYTHM NORMAL ECG WHEN COMPARED WITH ECG OF 02-JAN-2017 13:42, NO SIGNIFICANT CHANGE WAS FOUND Confirmed by SHIRLENE FONSECA MD ([id number]) on 02/08/2017 10:07:15 AM Referred By: Confirmed By:SHIRLENE FONSECA MD
[2017-02-08 10:10] LABS: ALBUMIN 3.1 g/dl (3.4-5.0); ALK PHOS 88 U/L (45-117); ANION GAP 5 (8-16); BILIRUBIN,TOTAL 0.4 mg/dL (0.2-1.0); CALCIUM 8.9 mg/dL (8.5-10.1); CO2 29 mmol/L (21-32); CREATININE 0.6 mg/dL (0.55-1.02); GLUCOSE,RANDOM 75 mg/dL (74-106); SGOT/AST 19 U/L (15-37); SGPT/ALT 16 U/L (12-78); TOT PROT 6.2 g/dl (6.4-8.2)
[2017-02-08] MEDS: PRENATAL VITAMINS W/ FOLIC ACID TABLET (FP) PO SCH (10:36)
[2017-02-08] MEDS: cloNIDine HCL 0.1 MG TABLET PO SCH ×2 (10:37→22:27)
[2017-02-08] MEDS: HYDROCORTISONE 0.5% TOPICAL CREAM 30 GM TUBE TP SCH ×2 (10:40→22:27)
--- NOTE | 2017-02-08 10:43 | PN ---
[facility] CIWA - CIWA Score Nausea/Vomitin Muscle Tremors: 3 Anxiety: 3 Agitation: 3 Paroxysmal Sweats: 1-Minimal Palms Moist Orientation: 0-Oriented Tacttile Disturbances: 1-Very Mild Itch/Numbness Auditory Disturbances: 1-Very Mild Visual Disturbances: 1-Very Mild Sensitivity Headache: 2-Mild CIWA-Ar Total Score: 18 BHS COWS - Scale Resting Pulse: 0= [place] 80 or Below Sweatin= Chills/Flushing Restless Observation: 3= Extraneous Movement Pupil Size: 1= Pupils >than Normal Bone or Joint Aches: 2= Severe Diffuse Aches Runny Nose/ Eye Tearin= Runny Nose/Eyes GI Upset > 30mins: 2= Nausea/Diarrhea Tremor Observation of Outstretched Hands: 2= Slight Tremor Visible Yawning Observation: 1= 1-2x During Session Anxiety or Irritability: 2=Irritable/Anxious Goose Flesh Skin: 0=Smooth Skin COWS Score: 16 S Progress Note (SOAP) Subjective: ALERT,IRRITABLE,ANXIOUS,INTERRUPTED SLEEP,TREMOR,PAIN IN THE BODY AND BACK Objective: 02/08/17 10:41 Vital Signs Temperature 96.3 F L 02/08/17 10:05 Pulse Rate 70 02/08/17 10:05 Respiratory Rate 16 02/08/17 10:05 Blood Pressure 118/84 02/08/17 10:05 O2 Sat by Pulse Oximetry (%) EKG NSR,NORMAL ECG Laboratory Last Values WBC 4.0 K/mm3 (4.0-10.0) 02/08/17 07:00 RBC 4.56 M/mm3 (3.60-5.2) 02/08/17 07:00 Hgb 11.7 GM/dL (10.7-15.3) 02/08/17 07:00 Hct 36.9 % (32.4-45.2) 02/08/17 07:00 MCV 80.9 fl (80-96) 02/08/17 07:00 MCHC 31.8 g/dl (32.0-36.0) L 02/08/17 07:00 RDW 17.6 % (11.6-15.6) H 02/08/17 07:00 Plt Count 166 K/MM3 (134-434) 02/08/17 07:00 MPV 8.7 fl (7.5-11.1) 02/08/17 07:00 Sodium 143 mmol/L (136-145) 02/08/17 07:00 Potassium 4.0 mmol/L (3.5-5.1) 02/08/17 07:00 Chloride 109 mmol/L (98-107) H 02/08/17 07:00 Carbon Dioxide 29 mmol/L (21-32) 02/08/17 07:00 Anion Gap 5 (8-16) L 02/08/17 07:00 BUN 10 mg/dL (7-18) D 02/08/17 07:00 Creatinine 0.6 mg/dL (0.55-1.02) 02/08/17 07:00 Creat Clearance w eGFR > 60 (>60) 02/08/17 07:00 Random Glucose 75 mg/dL (74-106) 02/08/17 07:00 Calcium 8.9 mg/dL (8.5-10.1) 02/08/17 07:00 Total Bilirubin 0.4 mg/dL (0.2-1.0) 02/08/17 07:00 AST 19 U/L (15-37) 02/08/17 07:00 ALT 16 U/L (12-78) 02/08/17 07:00 Alkaline Phosphatase 88 U/L (45-117) 02/08/17 07:00 Total Protein 6.2 g/dl (6.4-8.2) L 02/08/17 07:00 Albumin 3.1 g/dl (3.4-5.0) L 02/08/17 07:00 Urine Color Yellow 02/07/17 22:35 Urine Appearance Slcloudy 02/07/17 22:35 Urine pH 8.0 (5.0-8.0) D 02/07/17 22:35 Urine Protein Negative (NEGATIVE) 02/07/17 22:35 Urine Glucose (UA) Negative (NEGATIVE) 02/07/17 22:35 Urine Ketones Negative (NEGATIVE) 02/07/17 22:35 Urine Blood Negative (NEGATIVE) 02/07/17 22:35 Urine Nitrite Negative (NEGATIVE) 02/07/17 22:35 Urine Bilirubin Negative (NEGATIVE) 02/07/17 22:35 Urine Urobilinogen Negative E.U./dl (0.2-1.0) 02/07/17 22:35 Ur Leukocyte Esterase Negative (NEGATIVE) 02/07/17 22:35 Assessment: 02/08/17 10:43 WITHDRAWAL SYMPTOM Plan: CONTINUE DETOX
[2017-02-08 11:00] LABS: HIV 1 & 2 AB NEGATIVE; HIV 1 AGp24 NEGATIVE
--- NOTE | 2017-02-08 12:17 | CONSULT ---
[facility] Psychiatric Consult - Data Date of interview: 02/08/17 Admission source: [facility] Identifying data: Readmission to [facility] for this 46 y/o AA female seeking detox treatment,on ,for alcohol,heroin and cocaine dependence.Patient is single,a mother of six,domiciled,unemployed and supported on SSI benefits. Substance Abuse History: - Smoking Cessation. Smoking history: Current every day smoker. Have you smoked in the past 12 months: Yes. Aproximately how many cigarettes per day: 6. Cigars Per Day: 0. Hx Chewing Tobacco Use: No. Initiated information on smoking cessation: Yes. 'Breaking Loose' booklet given : 02/07/17. - Substance & Tx. History. Hx Alcohol Use: Yes. Hx Substance Use : Yes. Substance Use Type: Alcohol, Heroin. Hx Substance Use Treatment: Yes ( [facility] 01/02/17 TO 01/07/17). - Substances Abused. Alcohol. Route: Oral. Frequency: Daily. Amount used: 2 PINTS OF LIQOUR/4 OF 24 OZS BEER. Age of first use: 30. Date of Last Use: 02/06/17. Heroin. Route: Inhalation. Frequency: Daily. Amount used: 8 BAGS. Age of first use: 25. Date of Last Use : 02/06/17. Confirmed by patient. Medical History: Bronchial asthma,low back pain,anemia and a history of seizures (post head trauma at age 18). Psychiatric History: Patient denies history of psychiatric hospitalizations.Diagnosed with MDD.Still on seroquel 200 mg/hs + trazodone 150 mg/hs.Ms Pittman gets her psychiatric [facility].She denies history of suicide attempts. Physical/Sexual Abuse/Trauma History: Patient denies history of abuse. Additional Comment: Urine Drug Screen Results: DENISA-Cocaine, OPI-Opiates, TCA- Tricyclic Antidepressant.Noted. Mental Status Exam - Mental Status Exam Alert and Oriented to: Time, Place, Person Cognitive Function: Good Patient Appearance: Well Groomed Mood: Nervous, Withdrawn, Anxious Affect: Mood Congruent Patient Behavior: Fatigued, Appropriate, Cooperative Speech Pattern: Clear Voice Loudness: Normal Thought Process: Goal Oriented Thought Disorder: Not Present Hallucinations: Denies Suicidal Ideation: Denies Homicidal Ideation: Denies Insight/Judgement: Poor Sleep: Poorly, Difficulty falling asleep Appetite: Good Muscle strength/Tone: Normal Gait/Station: Normal Psychiatric Findings - Problem List (Orgas 1, 2,3) (1) Alcohol dependence with uncomplicated withdrawal Current Visit: Yes Status: Acute (2) Opioid dependence with withdrawal Current Visit: Yes Status: Acute (3) Cocaine dependence, uncomplicated Current Visit: Yes Status: Acute (4) Nicotine dependence Current Visit: Yes Status: Acute Qualifiers: Nicotine product type: cigarettes Substance use status: uncomplicated Qualified Code(s): F17.210 - Nicotine dependence, cigarettes, uncomplicated (5) Substance induced mood disorder Current Visit: Yes Status: Acute (6) Mood disorder Current Visit: Yes Status: Chronic (7) Low back pain Current Visit: Yes Status: Acute (8) Weight loss Current Visit: Yes Status: Chronic (9) History of asthma Current Visit: Yes Status: Chronic (10) Seizure after head injury Current Visit: No Status: Suspected Comment: A CHILD--TV FELL ON HEAD (11) Insomnia Current Visit: Yes Status: Acute - Initial Treatment Plan Initial Treatment Plan: Previous records are reviewed.Psychoeducation.Detoxification.Medications : seroquel 100 mg po hs + trazodone 100 mg po hs.Side effects/benefits discussed with the patient.She is in agreement with this careplan.Observation.No data found in review of pharmacy claims.
[2017-02-08] MEDS ORDERED: QUEtiapine FUMARATE 200 MG TABLET PO SCH (22:00)
[2017-02-08] MEDS: CYCLOBENZAPRINE HCL 10 MG TABLET (FP) PO PRN (22:27)
[2017-02-08] MEDS: traZODone HCL 100 MG TABLET (FP) PO SCH (22:27)
[2017-02-08] MEDS: QUEtiapine FUMARATE 100 MG TABLET (FP) PO SCH (22:27)
[2017-02-08] MEDS: THIAMINE HCL 100 MG TABLET (FP) PO SCH (22:27)
[2017-02-09] MEDS: chlordiazePOXIDE HCL 25 MG CAPSULE PO SCH ×3 (05:17→17:44)
[2017-02-09] MEDS: PRENATAL VITAMINS W/ FOLIC ACID TABLET (FP) PO SCH (10:41)
[2017-02-09] MEDS: HYDROCORTISONE 0.5% TOPICAL CREAM 30 GM TUBE TP SCH ×2 (10:41→22:31)
[2017-02-09] MEDS: cloNIDine HCL 0.1 MG TABLET PO SCH ×2 (10:41→22:29)
[2017-02-09] MEDS: METHADONE HCL 5 MG TABLET (FOR DETOX USE ONLY) PO SCH (10:42)
--- NOTE | 2017-02-09 12:00 | PN ---
[facility] CIWA - CIWA Score Nausea/Vomitin Muscle Tremors: 3 Anxiety: 2 Agitation: 2 Paroxysmal Sweats: 1-Minimal Palms Moist Orientation: 0-Oriented Tacttile Disturbances: 1-Very Mild Itch/Numbness Auditory Disturbances: 1-Very Mild Visual Disturbances: 1-Very Mild Sensitivity Headache: 2-Mild CIWA-Ar Total Score: 16 BHS COWS - Scale Resting Pulse: 0= [place] 80 or Below Sweatin= Chills/Flushing Restless Observation: 3= Extraneous Movement Pupil Size: 1= Pupils >than Normal Bone or Joint Aches: 2= Severe Diffuse Aches Runny Nose/ Eye Tearin= Runny Nose/Eyes GI Upset > 30mins: 2= Nausea/Diarrhea Tremor Observation of Outstretched Hands: 2= Slight Tremor Visible Yawning Observation: 1= 1-2x During Session Anxiety or Irritability: 2=Irritable/Anxious Goose Flesh Skin: 0=Smooth Skin COWS Score: 16 [facility] Progress Note (SOAP) Subjective: ALERT,IRRITABLE,ANXIOUS,INTERRUPTED SLEEP,TREMOR,PAIN IN THE BODY AND BACK Objective: 02/09/17 11:59 Vital Signs Temperature 97.7 F 02/09/17 11:57 Pulse Rate 85 02/09/17 11:57 Respiratory Rate 20 02/09/17 11:57 Blood Pressure 143/87 02/09/17 11:57 O2 Sat by Pulse Oximetry (%) Laboratory Last Values WBC 4.0 K/mm3 (4.0-10.0) 02/08/17 07:00 RBC 4.56 M/mm3 (3.60-5.2) 02/08/17 07:00 Hgb 11.7 GM/dL (10.7-15.3) 02/08/17 07:00 Hct 36.9 % (32.4-45.2) 02/08/17 07:00 MCV 80.9 fl (80-96) 02/08/17 07:00 MCHC 31.8 g/dl (32.0-36.0) L 02/08/17 07:00 RDW 17.6 % (11.6-15.6) H 02/08/17 07:00 Plt Count 166 K/MM3 (134-434) 02/08/17 07:00 MPV 8.7 fl (7.5-11.1) 02/08/17 07:00 Sodium 143 mmol/L (136-145) 02/08/17 07:00 Potassium 4.0 mmol/L (3.5-5.1) 02/08/17 07:00 Chloride 109 mmol/L (98-107) H 02/08/17 07:00 Carbon Dioxide 29 mmol/L (21-32) 02/08/17 07:00 Anion Gap 5 (8-16) L 02/08/17 07:00 BUN 10 mg/dL (7-18) D 02/08/17 07:00 Creatinine 0.6 mg/dL (0.55-1.02) 02/08/17 07:00 Creat Clearance w eGFR > 60 (>60) 02/08/17 07:00 Random Glucose 75 mg/dL (74-106) 02/08/17 07:00 Calcium 8.9 mg/dL (8.5-10.1) 02/08/17 07:00 Total Bilirubin 0.4 mg/dL (0.2-1.0) 02/08/17 07:00 AST 19 U/L (15-37) 02/08/17 07:00 ALT 16 U/L (12-78) 02/08/17 07:00 Alkaline Phosphatase 88 U/L (45-117) 02/08/17 07:00 Total Protein 6.2 g/dl (6.4-8.2) L 02/08/17 07:00 Albumin 3.1 g/dl (3.4-5.0) L 02/08/17 07:00 Urine Color Yellow 02/07/17 22:35 Urine Appearance Slcloudy 02/07/17 22:35 Urine pH 8.0 (5.0-8.0) D 02/07/17 22:35 Ur Specific [place] 1.015 (1.005-1.025) 02/07/17 22:35 Urine Protein Negative (NEGATIVE) 02/07/17 22:35 Urine Glucose (UA) Negative (NEGATIVE) 02/07/17 22:35 Urine Ketones Negative (NEGATIVE) 02/07/17 22:35 Urine Blood Negative (NEGATIVE) 02/07/17 22:35 Urine Nitrite Negative (NEGATIVE) 02/07/17 22:35 Urine Bilirubin Negative (NEGATIVE) 02/07/17 22:35 Urine Urobilinogen Negative E.U./dl (0.2-1.0) 02/07/17 22:35 Ur Leukocyte Esterase Negative (NEGATIVE) 02/07/17 22:35 RPR Titer Nonreactive (NONREACTIVE) 02/08/17 07:00 HIV 1&2 Antibody Screen Negative 02/08/17 07:00 HIV P24 Antigen Negative 02/08/17 07:00 Assessment: 02/09/17 12:00 WITHDRAWAL SYMPTOM Plan: CONTINUE DETOX
[2017-02-09] MEDS: chlordiazePOXIDE 5 MG CAPSULE PO SCH ×2 (22:29→22:50)
[2017-02-09] MEDS: THIAMINE HCL 100 MG TABLET (FP) PO SCH (22:29)
[2017-02-09] MEDS: traZODone HCL 100 MG TABLET (FP) PO SCH (22:30)
[2017-02-09] MEDS: QUEtiapine FUMARATE 100 MG TABLET (FP) PO SCH (22:53)
[2017-02-10] MEDS: chlordiazePOXIDE 5 MG CAPSULE PO SCH ×3 (05:44→17:32)
--- NOTE | 2017-02-10 10:07 | PN ---
[facility] Progress Note (SOAP) Subjective: ALERT,IRRITABLE,ANXIOUS,INTERRUPTED SLEEP,PAIN IN THE BODY Objective: 02/10/17 10:06 Vital Signs Temperature 96.9 F L 02/10/17 09:48 Pulse Rate 85 02/10/17 09:48 Respiratory Rate 16 02/10/17 09:48 Blood Pressure 120/73 02/10/17 09:48 O2 Sat by Pulse Oximetry (%) Assessment: 02/10/17 10:07 WITHDRAWAL SYMPTOM Plan: CONTINUE DETOX
[2017-02-10] MEDS: HYDROCORTISONE 0.5% TOPICAL CREAM 30 GM TUBE TP SCH ×2 (10:25→22:55)
[2017-02-10] MEDS: PRENATAL VITAMINS W/ FOLIC ACID TABLET (FP) PO SCH (10:25)
[2017-02-10] MEDS: CYCLOBENZAPRINE HCL 10 MG TABLET (FP) PO PRN (10:25)
[2017-02-10] MEDS: METHADONE HCL 5 MG TABLET (FOR DETOX USE ONLY) PO SCH (10:25)
[2017-02-10] MEDS: cloNIDine HCL 0.1 MG TABLET PO SCH ×2 (10:25→22:55)
[2017-02-10] MEDS: THIAMINE HCL 100 MG TABLET (FP) PO SCH (22:11)
[2017-02-10] MEDS: QUEtiapine FUMARATE 100 MG TABLET (FP) PO SCH (22:11)
[2017-02-10] MEDS: traZODone HCL 100 MG TABLET (FP) PO SCH (22:11)
[2017-02-10] MEDS: chlordiazePOXIDE HCL 10 MG CAPSULE PO SCH (23:20)
[2017-02-11] MEDS: chlordiazePOXIDE HCL 10 MG CAPSULE PO SCH ×3 (05:07→17:41)
--- NOTE | 2017-02-11 09:18 | PN ---
S Progress Note (SOAP) Subjective: ALERT,IRRITABLE,INTERRUPTED SLEEP Objective: 02/11/17 09:17 Vital Signs Temperature 97.3 F L 02/11/17 05:52 Pulse Rate 69 02/11/17 05:52 Respiratory Rate 18 02/11/17 05:52 Blood Pressure 136/78 02/11/17 05:52 O2 Sat by Pulse Oximetry (%) Assessment: 02/11/17 09:17 WITHDRAWAL SYMPTOM Plan: CONTINUE DETOX,DISCHARGE IN AM
[2017-02-11] MEDS ORDERED: METHADONE HCL 10 MG TABLET (FOR DETOX USE ONLY) PO SCH (10:00)
[2017-02-11] MEDS: HYDROCORTISONE 0.5% TOPICAL CREAM 30 GM TUBE TP SCH ×2 (10:10→23:13)
[2017-02-11] MEDS: cloNIDine HCL 0.1 MG TABLET PO SCH ×2 (10:10→22:32)
[2017-02-11] MEDS: PRENATAL VITAMINS W/ FOLIC ACID TABLET (FP) PO SCH (10:10)
[2017-02-11] MEDS: traZODone HCL 100 MG TABLET (FP) PO SCH (22:32)
[2017-02-11] MEDS: CYCLOBENZAPRINE HCL 10 MG TABLET (FP) PO PRN (22:32)
[2017-02-11] MEDS: QUEtiapine FUMARATE 100 MG TABLET (FP) PO SCH (22:32)
[2017-02-11] MEDS: THIAMINE HCL 100 MG TABLET (FP) PO SCH (22:32)
[2017-02-12] MEDS ORDERED: METHADONE HCL 5 MG TABLET (FOR DETOX USE ONLY) PO SCH (06:00)
[2017-02-12 06:57] VITALS: BP 112/75; PULSE 96; TEMP 96.3
--- NOTE | 2017-02-12 08:04 | PN ---
S Progress Note (SOAP) Subjective: ALERT,NO COMPLAINT Objective: 02/12/17 08:02 Vital Signs Temperature 96.3 F L 02/12/17 06:00 Pulse Rate 96 H 02/12/17 06:00 Respiratory Rate 18 02/12/17 06:00 Blood Pressure 112/75 02/12/17 06:00 O2 Sat by Pulse Oximetry (%) Assessment: 02/12/17 08:02 DETOX COMPLETED,NO WITHDRAWAL SYMPTOM Plan: DISCHARGE TODAY,FOLLOW UP WITH AFTER CARE PROGRAM ARRANGEMENT
--- NOTE | 2017-02-12 08:07 | DS ---
[facility] Detox Discharge Summary Admission Date: 02/07/17 Discharge Date: 02/12/17 - History Present History: Alcohol Dependence, Opioid Dependence Additional Comments: FOLLOW UP WITH AFTER PROGRAM ARRANGEMENT AND PMD FOR MEDICAL PROBLEM Pertinent Past History: ASTHMA S/P HEAD INJURY LOW BACK PAIN WEIGHT LOSS CONTACT DERMATITIS ANXIETY AND DEPRESSION - Physical Exam Results Vital Signs: Vital Signs Temperature 96.3 F L 02/12/17 06:00 Pulse Rate 96 H 02/12/17 06:00 Respiratory Rate 18 02/12/17 06:00 Blood Pressure 112/75 02/12/17 06:00 O2 Sat by Pulse Oximetry (%) Pertinent Admission Physical Exam Findings: WITHDRAWAL SYMPTOM - Treatment Hospital Course: Detox Protocol Followed, Detoxed Safely, Responded well, Discharged Condition Good Patient has Accepted a Rehab Referral to: [facility] - Medication Discharge Medications: Ambulatory Orders Trazodone HCl [Desyrel -] 150 mg PO HS 01/02/17 Albuterol Sulfate Inhaler - [Ventolin HFA Inhaler -] 2 puff IH Q4H PRN #1 inhaler 01/07/17 Quetiapine Fumarate [Seroquel -] 150 mg PO HS 02/07/17 Quetiapine Fumarate [Seroquel] 100 mg PO HS #30 tablet 02/08/17 Trazodone HCl 100 mg PO HS #30 tablet 02/08/17 - Diagnosis (1) Opioid dependence with withdrawal Current Visit: Yes Status: Acute (2) History of asthma Current Visit: Yes Status: Chronic (3) Nicotine dependence Current Visit: Yes Status: Acute Qualifiers: Nicotine product type: cigarettes Substance use status: uncomplicated Qualified Code(s): F17.210 - Nicotine dependence, cigarettes, uncomplicated (4) Seizure after head injury Current Visit: No Status: Suspected (5) Alcohol dependence with uncomplicated withdrawal Current Visit: Yes Status: Acute (6) Weight loss Current Visit: Yes Status: Chronic (7) Low back pain Current Visit: Yes Status: Acute (8) Contact dermatitis Current Visit: Yes Status: Acute (9) Anxiety and depression Current Visit: Yes Status: Acute - AMA Did Patient Leave Against Medical Advice: No
== END 2017-02-12 08:46 | disposition home or self-care (01) | DRG 773 ==
LOC: YASAS 12:05 → Y6N 17:07
PROVIDERS: ADMIT Internal Medicine; ATTEND Internal Medicine
PROC: HZ2ZZZZ Detoxification Services for Substance Abuse Treatment (ICD-10-PCS; principal; 2017-02-07)
DX: F11.23 Opioid dependence with withdrawal (principal); F10.230 Alcohol dependence with withdrawal, uncomplicated; F17.210 Nicotine dependence, cigarettes, uncomplicated; F41.9 Anxiety disorder, unspecified; F19.24 Other psychoactive substance dependence with psychoactive substance-induced mood disorder; F39 Unspecified mood [affective] disorder; J45.909 Unspecified asthma, uncomplicated; L25.9 Unspecified contact dermatitis, unspecified cause; M54.5 Low back pain; G47.00 Insomnia, unspecified; Z86.69 Personal history of other diseases of the nervous system and sense organs; Z86.2 Personal history of diseases of the blood and blood-forming organs and certain disorders involving the immune mechanism
CPT/HCPCS: 36415; 80053; 81003; 85027; 86593; 87389; 93005; 93010

== ENCOUNTER 2017-04-23 11:02 | Inpatient (IN) | payer OTHER ==
[2017-04-23 11:29] VITALS: BMI 21.9
--- NOTE | 2017-04-23 17:08 | HP ---
COWS - Scale Resting Pulse: 0= [place] 80 or Below Sweatin= Chills/Flushing Restless Observation: 3= Extraneous Movement Pupil Size: 1= Pupils >than Normal Bone or Joint Aches: 2= Severe Diffuse Aches Runny Nose/ Eye Tearin= Runny Nose/Eyes GI Upset > 30mins: 3= Vomiting/Diarrhea Tremor Observation: 2= Slight Tremor Visible Yawning Observation: 1= 1-2x During Session Anxiety or Irritability: 2=Irritable/Anxious Goose Flesh Skin: 0=Smooth Skin COWS Score: 17 CIWA Score - CIWA Score Nausea/Vomitin Muscle Tremors: 4-Moderate,w/Arms Extend Anxiety: 4-Mod. Anxious/Guarded Agitation: 4-Moderately Restless Paroxysmal Sweats: 1-Minimal Palms Moist Orientation: 1-Uncertain about Date Tacttile Disturbances: 0-None Auditory Disturbances: 0-None Visual Disturbances: 0-None Headache: 1-Very Mild CIWA-Ar Total Score: 17 Admission ROS BHS - HPI Chief Complaint: WITHDRAWAL SX Allergies/Adverse Reactions: Allergies Allergy/AdvReac Type Severity Reaction Status Date / Time No Known Allergies Allergy Verified 02/07/17 16:27 History of Present Illness: 46 YEARS OLD FEMALE WITH LONG HISTORY OF ALCOHOL OPIATE NICOTINE DEPENDENCE HAS ASTHMA, CHRONIC BACK PAIN AND DEPRESSION IS ADMITTED TO DETOX Exam Limitations: No Limitations - Ebola screening Have you traveled outside of the country in the last 21 days: No Have you had contact with anyone from an Ebola affected area: No Have you been sick,other than usual withdrawal symptoms: No Do you have a fever: No - Review of Systems Constitutional: Loss of Appetite, Changes in sleep, Unintentional Wgt. Loss, Unexplained wgt Loss EENT: reports: Blurred Vision (NEED EYE GLASSES) Respiratory: reports: Cough Cardiac: reports: No Symptoms Reported GI: reports: Nausea, Poor Appetite, Poor Fluid Intake, Vomiting, Abdominal cramping : reports: No Symptoms Reported Musculoskeletal: reports: Back Pain, Joint Pain, Muscle Pain, Neck Pain Integumentary: reports: Lesions (ARMS X 3 MONTHS) Neuro: reports: Seizure (LAST EPISODE 18 YEARS OLD), Tremors Endocrine: reports: No Symptoms Reported Hematology: reports: No Symptoms Reported Psychiatric: reports: Judgement Intact, Depressed Other Systems: Reviewed and Negative Patient History - Patient Medical History Hx Anemia: Yes (NO TREATMENT) Hx Asthma: Yes (ON MDI) Hx Chronic Obstructive Pulmonary Disease (COPD): No Hx Cancer: No Hx Cardiac Disorders: No Hx Congestive Heart Failure: No Hx Hypertension: No Hx Hypercholesterolemia: No Hx Pacemaker: No HX Cerebrovascular Accident: No Hx Seizures: Yes (AT AGE 20) Hx Dementia: No Hx Diabetes: No Hx Gastrointestinal Disorders: No Hx Liver Disease: No Hx Genitourinary Disorders: No Hx Sexually Transmitted Disorders: No Hx Renal Disease (ESRD): No Hx Thyroid Disease: No Hx Human Immunodeficiency Virus (HIV): No (NEGATIVE HX LAST 11/16) Hx Hepatitis C: Yes Hx Depression: Yes Hx Suicide Attempt: No Hx Bipolar Disorder: No Hx Schizophrenia: No - Patient Surgical History Past Surgical History: No Hx Neurologic Surgery: No Hx Cataract Extraction: No Hx Cardiac Surgery: No Hx Lung Surgery: No Hx Breast Surgery: No Hx Breast Biopsy: No Hx Abdominal Surgery: No Hx Appendectomy: No Hx Cholecystectomy: No Hx Genitourinary Surgery: No Hx Section: No Hx Orthopedic Surgery: No Hx Hysterectomy: No - PPD History Previous Implant?: Yes Documented Results: Negative w/proof Implanted On Prior R Admission?: Yes Date: 01/04/17 Results: 0 MM PPD to be Administered?: No - Reproductive History Patient is a Female of Child Bearing Age (11 -55 yrs old): Yes Last Menstrual Period: 04/23/17 Patient : No - Smoking Cessation Smoking history: Current every day smoker Have you smoked in the past 12 months: Yes Aproximately how many cigarettes per day: 6 Cigars Per Day: 0 Hx Chewing Tobacco Use: No Initiated information on smoking cessation: Yes 'Breaking Loose' booklet given: 04/23/17 - Substance & Tx. History Hx Alcohol Use: Yes Hx Substance Use: Yes Substance Use Type: Alcohol, Cocaine, Heroin, Opiates Hx Substance Use Treatment: Yes (02/07-02/12/17 [facility]) - Substances Abused Heroin Route: Inhalation Frequency: Daily Amount used: 6 BAGS Age of first use: 20 Date of Last Use: 04/22/17 Alcohol Route: Oral Frequency: Daily Amount used: 4/24OZ CANS OF BEER, 1 PINT LIQUOR Age of first use: 20 Date of Last Use: 04/22/17 Cocaine Route: Smoking Frequency: 3-6 times per week Amount used: $60 Age of first use: 24 Date of Last Use: 04/22/17 Family Disease History - Family Disease History Family Disease History: Diabetes: Brother, CA: Mother (DECESED,CA LUNG), Other: Father (ALCOHOL,DSA,), Mother, Sister ( FIRE) Admission Physical Exam [facility] - Vital Signs Vital Signs: Vital Signs - 24 hr 04/23/17 11:26 Temperature 96.7 F L Pulse Rate 74 Respiratory 16 Rate Blood Pressure 107/77 - Physical General Appearance: Yes: Appropriately Dressed, Moderate Distress, Thin, Tremorous, Irritable, Sweating, Anxious HEENTM: Yes: Hearing grossly Normal, Normal ENT Inspection, Normocephalic, Normal Voice Respiratory: Yes: Chest Non-Tender, Lungs Clear, Normal Breath Sounds, No Respiratory Distress, No Accessory Muscle Use Neck: Yes: Supple, Trachea in good position Breast: Yes: Breasts Symetrical Cardiology: Yes: Regular Rhythm, Regular Rate, S1, S2 Abdominal: Yes: Non Tender, Soft Genitourinary: Yes: Within Normal Limits Back: Yes: Normal Inspection Musculoskeletal: Yes: full range of Motion, Gait Steady, Back pain, Muscle Pain Extremities: Yes: Normal Range of Motion, Non-Tender, Tremors Neurological: Yes: Alert, Motor Strength 5/5, Normal Response, Depressed Affect Integumentary: Yes: Warm, Rash Lymphatic: Yes: Within Normal Limits - Diagnostic (1) Alcohol dependence with uncomplicated withdrawal Current Visit: Yes Status: Acute (2) Cocaine dependence, uncomplicated Current Visit: Yes Status: Chronic (3) Nicotine dependence Current Visit: Yes Status: Acute Qualifiers: Nicotine product type: cigarettes Substance use status: in withdrawal Qualified Code(s): F17.213 - Nicotine dependence, cigarettes, with withdrawal (4) Opioid dependence with withdrawal Current Visit: Yes Status: Acute (5) Weight loss Current Visit: Yes Status: Acute (6) Asthma Current Visit: Yes Status: Chronic Qualifiers: Asthma severity: mild intermittent Asthma complication type: with status asthmaticus Qualified Code(s): J45.22 - Mild intermittent asthma with status asthmaticus (7) Depression (emotion) Current Visit: Yes Status: Suspected Qualifiers: Depression Type: dysthymia Qualified Code(s): F34.1 - Dysthymic disorder (8) Heat rash Current Visit: Yes Status: Chronic Comment: ARMS Cleared for Admission [facility] - Detox or Rehab [facility] Level of Care: Medically Managed Detox Regimen/Protocol: Methadone/Librium [facility] Breath Alcohol Content Breath Alcohol Content: 0 Urine Pregancy Test - Result Urine Test Results: Negative- NO Line Present Urine Drug Screen - Results Drug Screen Negative: No Urine Drug Screen Results: DENISA-Cocaine, OPI-Opiates, MTD-Methadone, TCA- Tricyclic Antidepress
[2017-04-23] MEDS ORDERED: MAGNESIUM HYDROX 2400MG/30ML ORAL SUSPENSION 30 ML CUP PO PRN (17:15)
[2017-04-23] MEDS ORDERED: MAG HYDROX/AL HYDROX/SIMETH 30 ML UNIT-DOSE CUP PO PRN (17:15)
[2017-04-23] MEDS ORDERED: NICOTINE POLACRILEX 2 MG GUM BC PRN (17:15)
[2017-04-23] MEDS ORDERED: diphenhydrAMINE HCL 50 MG CAPSULE PO PRN (17:15)
[2017-04-23] MEDS ORDERED: P-EPHED 60MG/TRIPROLIDI 2.5MG TABLET PO PRN (17:15)
[2017-04-23] MEDS ORDERED: chlordiazePOXIDE HCL 25 MG CAPSULE PO PRN (17:15)
[2017-04-23] MEDS ORDERED: guaiFENesin/D-METHORPHAN HB 10 ML UNIT-DOSE CUPS PO PRN (17:15)
[2017-04-23] MEDS ORDERED: IBUPROFEN 400 MG TABLET (FP) PO PRN (17:15)
[2017-04-23] MEDS ORDERED: MAGNESIUM CITRATE 300 ML BOTTLE PO PRN (17:15)
[2017-04-23] MEDS ORDERED: LOPERAMIDE HCL 2 MG CAPSULE PO PRN (17:15)
[2017-04-23] MEDS ORDERED: MENTHOL/PHENOL 1 EACH UD MM PRN (17:15)
[2017-04-23] MEDS ORDERED: METHADONE HCL 10 MG TABLET (FOR DETOX USE ONLY) PO ONE ×2 (17:15→23:00)
[2017-04-23] MEDS ORDERED: ACETAMINOPHEN 325 MG TABLET (FP) PO PRN (17:15)
[2017-04-23] MEDS ORDERED: COLLOIDAL OATMEAL 1 BAR EACH TP PRN (17:18)
[2017-04-23] MEDS ORDERED: ALBUTEROL SO4 6.7 GM HFA INHALER IH PRN (17:18)
[2017-04-23] MEDS ORDERED: BACITRACIN 0.9 GM PACKET TP ONE (17:18)
[2017-04-23] MEDS: THIAMINE HCL 100 MG TABLET (FP) PO SCH (22:03)
[2017-04-23] MEDS: chlordiazePOXIDE HCL 25 MG CAPSULE PO SCH (22:04)
[2017-04-24] MEDS: chlordiazePOXIDE HCL 25 MG CAPSULE PO SCH ×4 (05:33→23:11)
--- NOTE | 2017-04-24 07:42 | CONSULT ---
[facility] Psychiatric Consult - Data Date of interview: 04/24/17 Admission source: [facility] Identifying data: This is 46 years old female with no psychiatric hospitalization history intoxicated with: Alcohol, Heroin, Cocain neand Nicotine Substance Abuse History: - Smoking Cessation. Smoking history: Current every day smoker. Have you smoked in the past 12 months: Yes. Aproximately how many cigarettes per day: 6. Cigars Per Day: 0. Hx Chewing Tobacco Use: No. Initiated information on smoking cessation: Yes. 'Breaking Loose' booklet given : 04/23/17. - Substance & Tx. History. Hx Alcohol Use: Yes. Hx Substance Use : Yes. Substance Use Type: Alcohol, Cocaine, Heroin, Opiates. Hx Substance Use Treatment: Yes (02/07-02/12/17 [facility]). - Substances Abused. Heroin. Route: Inhalation. Frequency: Daily. Amount used: 6 BAGS. Age of first use: 20. Date of Last Use: 04/22/17. Alcohol. Route: Oral. Frequency: Daily. Amount used: 4/24OZ CANS OF BEER, 1 PINT LIQUOR. Age of first use: 20. Date of Last Use: 04/22/17. Cocaine. Route: Smoking. Frequency: 3-6 times per week. Amount used: $60. Age of first use: 24. Date of Last Use: 04/22/17 Medical History: Weight loss, Asthma, LBP, Head injury history Psychiatric History: Patient reports history of anxiety and dep[ression, repoprts taking prior to admission: Seroquel 200mg po qhs. Trazodone 150mg po qhs Physical/Sexual Abuse/Trauma History: Denies Additional Comment: Seroquel 200mg po qhs. Trazodone 150mg po qhs Mental Status Exam - Mental Status Exam Alert and Oriented to: Person Cognitive Function: Fair Patient Appearance: Unkempt Mood: Sad Affect: Flat Patient Behavior: Sedated Speech Pattern: Delayed Voice Loudness: Mildly Soft/Quiet Thought Process: Circumstantial Thought Disorder: Being Controlled Hallucinations: Denies Suicidal Ideation: Denies Homicidal Ideation: Denies Insight/Judgement: Fair Sleep: Difficulty falling asleep Appetite: Weight loss Muscle strength/Tone: Mild Hypotonicity Gait/Station: Shuffling Additional Comments: Seroquel 200mg po qhs. Trazodone 150mg po qhs Psychiatric Findings - Problem List ([place] 1, 2,3) (1) Alcohol dependence with uncomplicated withdrawal Current Visit: Yes Status: Acute (2) Nicotine dependence Current Visit: Yes Status: Acute Qualifiers: Nicotine product type: cigarettes Substance use status: in withdrawal Qualified Code(s): F17.213 - Nicotine dependence, cigarettes, with withdrawal (3) Opioid dependence with withdrawal Current Visit: Yes Status: Acute (4) Cocaine dependence, uncomplicated Current Visit: Yes Status: Chronic (5) Anxiety and depression Current Visit: No Status: Acute (6) Drug-induced mood disorder Current Visit: Yes Status: Acute - Initial Treatment Plan Initial Treatment Plan: Seroquel 200mg po qhs. Trazodone 150mg po qhs
[2017-04-24] MEDS ORDERED: METHADONE HCL 10 MG TABLET (FOR DETOX USE ONLY) PO SCH (10:00)
[2017-04-24 10:10] LABS: MCH 26.9 pg (25.7-33.7); MCHC 32.2 g/dl (32.0-36.0); MEAN CELL VOLUME 83.5 fl (80-96); MEAN PLT VOLUME 9.1 fl (7.5-11.1); PLATELET COUNT 237 K/MM3 (134-434); RDW 16.5 % (11.6-15.6); WHITE BLOOD COUNT 4.2 K/mm3 (4.0-10.0)
[2017-04-24] MEDS: PRENATAL VITAMINS W/ FOLIC ACID TABLET (FP) PO SCH (10:19)
[2017-04-24] MEDS: NICOTINE 14 MG/24 HOURS TOPICAL PATCH TD SCH (10:20)
[2017-04-24 10:48] LABS: ALBUMIN 3.4 g/dl (3.4-5.0); ALK PHOS 70 U/L (45-117); ANION GAP 8 (8-16); BILIRUBIN,TOTAL 0.7 mg/dL (0.2-1.0); CALCIUM 8.7 mg/dL (8.5-10.1); CO2 29 mmol/L (21-32); CREATININE 0.6 mg/dL (0.55-1.02); GLUCOSE,RANDOM 77 mg/dL (74-106); SGOT/AST 15 U/L (15-37); SGPT/ALT 16 U/L (12-78); TOT PROT 6.7 g/dl (6.4-8.2)
--- NOTE | 2017-04-24 11:26 | PN ---
S CIWA - CIWA Score Nausea/Vomitin Muscle Tremors: 3 Anxiety: 3 Agitation: 3 Paroxysmal Sweats: 1-Minimal Palms Moist Orientation: 0-Oriented Tacttile Disturbances: 1-Very Mild Itch/Numbness Auditory Disturbances: 1-Very Mild Visual Disturbances: 1-Very Mild Sensitivity Headache: 2-Mild CIWA-Ar Total Score: 18 BHS COWS - Scale Resting Pulse: 0= [place] 80 or Below Sweatin= Chills/Flushing Restless Observation: 3= Extraneous Movement Pupil Size: 1= Pupils >than Normal Bone or Joint Aches: 2= Severe Diffuse Aches Runny Nose/ Eye Tearin= Runny Nose/Eyes GI Upset > 30mins: 2= Nausea/Diarrhea Tremor Observation of Outstretched Hands: 2= Slight Tremor Visible Yawning Observation: 1= 1-2x During Session Anxiety or Irritability: 2=Irritable/Anxious Goose Flesh Skin: 0=Smooth Skin COWS Score: 16 S Progress Note (SOAP) Subjective: ALERT,IRRITABLE,ANXIOUS,TREMOR,PAIN IN THE BODY AND BACK,INTERRUPTED SLEEP Objective: 04/24/17 11:24 Vital Signs Temperature 98.1 F 04/24/17 09:47 Pulse Rate 78 04/24/17 09:47 Respiratory Rate 18 04/24/17 09:47 Blood Pressure 143/71 04/24/17 09:47 O2 Sat by Pulse Oximetry (%) EKG SINUS BRADYCARDIA 57/MIN NO CHEST PAIN,NO SOB,NO DIZZINESS Laboratory Last Values WBC 4.2 K/mm3 (4.0-10.0) 04/24/17 06:00 RBC 4.64 M/mm3 (3.60-5.2) 04/24/17 06:00 Hgb 12.5 GM/dL (10.7-15.3) 04/24/17 06:00 Hct 38.8 % (32.4-45.2) 04/24/17 06:00 MCV 83.5 fl (80-96) 04/24/17 06:00 MCH 26.9 pg (25.7-33.7) 04/24/17 06:00 MCHC 32.2 g/dl (32.0-36.0) 04/24/17 06:00 RDW 16.5 % (11.6-15.6) H 04/24/17 06:00 Plt Count 237 K/MM3 (134-434) D 04/24/17 06:00 MPV 9.1 fl (7.5-11.1) 04/24/17 06:00 Sodium 141 mmol/L (136-145) 04/24/17 06:00 Potassium 4.1 mmol/L (3.5-5.1) 04/24/17 06:00 Chloride 104 mmol/L (98-107) 04/24/17 06:00 Carbon Dioxide 29 mmol/L (21-32) 04/24/17 06:00 Anion Gap 8 (8-16) 04/24/17 06:00 BUN 8 mg/dL (7-18) 04/24/17 06:00 Creatinine 0.6 mg/dL (0.55-1.02) 04/24/17 06:00 Creat Clearance w eGFR > 60 (>60) 04/24/17 06:00 Random Glucose 77 mg/dL (74-106) 04/24/17 06:00 Calcium 8.7 mg/dL (8.5-10.1) 04/24/17 06:00 Total Bilirubin 0.7 mg/dL (0.2-1.0) D 04/24/17 06:00 AST 15 U/L (15-37) D 04/24/17 06:00 ALT 16 U/L (12-78) 04/24/17 06:00 Alkaline Phosphatase 70 U/L (45-117) D 04/24/17 06:00 Total Protein 6.7 g/dl (6.4-8.2) 04/24/17 06:00 Albumin 3.4 g/dl (3.4-5.0) 04/24/17 06:00 Assessment: 04/24/17 11:25 WITHDRAWAL SYMPTOM Plan: CONTINUE DETOX
--- NOTE | 2017-04-24 11:31 | EKG ---
Test Reason : Blood Pressure : / mmHG Vent. Rate : 057 BPM Atrial Rate : 057 BPM P-R Int : 178 ms QRS Dur : 082 ms QT Int : 422 ms P-R-T Axes : 068 080 074 degrees QTc Int : 410 ms SINUS BRADYCARDIA OTHERWISE NORMAL ECG WHEN COMPARED WITH ECG OF 07-FEB-2017 16:49, NO SIGNIFICANT CHANGE WAS FOUND Confirmed by MIRI SANTANA MD ([id number]) on 04/24/2017 11:30:52 AM Referred By: Ariel Marquez Confirmed By:MIRI SANTANA MD
[2017-04-24] MEDS: traZODone HCL 50 MG TABLET (FP) PO SCH (22:18)
[2017-04-24] MEDS: QUEtiapine FUMARATE 200 MG TABLET PO SCH (22:18)
[2017-04-24] MEDS: THIAMINE HCL 100 MG TABLET (FP) PO SCH (22:18)
[2017-04-25] MEDS: chlordiazePOXIDE HCL 25 MG CAPSULE PO SCH ×3 (05:52→18:07)
--- NOTE | 2017-04-25 09:15 | PN ---
S CIWA - CIWA Score Nausea/Vomitin Muscle Tremors: 3 Anxiety: 3 Agitation: 2 Paroxysmal Sweats: 1-Minimal Palms Moist Orientation: 0-Oriented Tacttile Disturbances: 1-Very Mild Itch/Numbness Auditory Disturbances: 1-Very Mild Visual Disturbances: 1-Very Mild Sensitivity Headache: 2-Mild CIWA-Ar Total Score: 17 BHS COWS - Scale Resting Pulse: 0= [place] 80 or Below Sweatin= Chills/Flushing Restless Observation: 3= Extraneous Movement Pupil Size: 1= Pupils >than Normal Bone or Joint Aches: 2= Severe Diffuse Aches Runny Nose/ Eye Tearin= Nasal Congestion GI Upset > 30mins: 2= Nausea/Diarrhea Tremor Observation of Outstretched Hands: 2= Slight Tremor Visible Yawning Observation: 1= 1-2x During Session Anxiety or Irritability: 2=Irritable/Anxious Goose Flesh Skin: 0=Smooth Skin COWS Score: 15 BHS Progress Note (SOAP) Subjective: ALERT,IRRITABLE,ANXIOUS,INTERRUPTED SLEEP,PIN IN THE BODY AND BACK,TREMOR Objective: 04/25/17 09:14 Vital Signs Temperature 96.9 F L 04/25/17 06:04 Pulse Rate 65 04/25/17 06:04 Respiratory Rate 16 04/25/17 06:04 Blood Pressure 138/83 04/25/17 06:04 O2 Sat by Pulse Oximetry (%) Laboratory Last Values WBC 4.2 K/mm3 (4.0-10.0) 04/24/17 06:00 RBC 4.64 M/mm3 (3.60-5.2) 04/24/17 06:00 Hgb 12.5 GM/dL (10.7-15.3) 04/24/17 06:00 Hct 38.8 % (32.4-45.2) 04/24/17 06:00 MCV 83.5 fl (80-96) 04/24/17 06:00 MCH 26.9 pg (25.7-33.7) 04/24/17 06:00 MCHC 32.2 g/dl (32.0-36.0) 04/24/17 06:00 RDW 16.5 % (11.6-15.6) H 04/24/17 06:00 Plt Count 237 K/MM3 (134-434) D 04/24/17 06:00 MPV 9.1 fl (7.5-11.1) 04/24/17 06:00 Sodium 141 mmol/L (136-145) 04/24/17 06:00 Potassium 4.1 mmol/L (3.5-5.1) 04/24/17 06:00 Chloride 104 mmol/L (98-107) 04/24/17 06:00 Carbon Dioxide 29 mmol/L (21-32) 04/24/17 06:00 Anion Gap 8 (8-16) 04/24/17 06:00 BUN 8 mg/dL (7-18) 04/24/17 06:00 Creatinine 0.6 mg/dL (0.55-1.02) 04/24/17 06:00 Creat Clearance w eGFR > 60 (>60) 04/24/17 06:00 Random Glucose 77 mg/dL (74-106) 04/24/17 06:00 Calcium 8.7 mg/dL (8.5-10.1) 04/24/17 06:00 Total Bilirubin 0.7 mg/dL (0.2-1.0) D 04/24/17 06:00 AST 15 U/L (15-37) D 04/24/17 06:00 ALT 16 U/L (12-78) 04/24/17 06:00 Alkaline Phosphatase 70 U/L (45-117) D 04/24/17 06:00 Total Protein 6.7 g/dl (6.4-8.2) 04/24/17 06:00 Albumin 3.4 g/dl (3.4-5.0) 04/24/17 06:00 Assessment: 04/25/17 09:15 WITHDRAWAL SYMPTOM Plan: CONTINUE DETOX
[2017-04-25] MEDS: PRENATAL VITAMINS W/ FOLIC ACID TABLET (FP) PO SCH (10:41)
[2017-04-25] MEDS: METHADONE HCL 5 MG TABLET (FOR DETOX USE ONLY) PO SCH (10:42)
[2017-04-25] MEDS: NICOTINE 14 MG/24 HOURS TOPICAL PATCH TD SCH (10:42)
[2017-04-25 14:35] LABS: URINE APPEARANCE SLCLOUDY; URINE BILIRUBIN NEGATIVE (NEGATIVE); URINE BLOOD 3+ (NEGATIVE); URINE COLOR LTYELLOW; URINE GLUCOSE (UA) 1+ (NEGATIVE); URINE KETONE NEGATIVE (NEGATIVE); URINE LEUK ESTERASE NEGATIVE (NEGATIVE); URINE NITRITE NEGATIVE (NEGATIVE); URINE PROTEIN NEGATIVE (NEGATIVE); URINE UROBILINOGEN NEGATIVE mg/dL (0.2-1.0)
[2017-04-25 14:42] LABS: URINE BACTERIA RARE /hpf (NONE SEEN); URINE MUCUS RARE; URINE RBC 33 /hpf (0-3); URINE WBC 20 /hpf (3-5)
[2017-04-25] MEDS: THIAMINE HCL 100 MG TABLET (FP) PO SCH (22:15)
[2017-04-25] MEDS: QUEtiapine FUMARATE 200 MG TABLET PO SCH (22:15)
[2017-04-25] MEDS: traZODone HCL 50 MG TABLET (FP) PO SCH (22:15)
[2017-04-25] MEDS: chlordiazePOXIDE 5 MG CAPSULE PO SCH (23:08)
[2017-04-26] MEDS: chlordiazePOXIDE 5 MG CAPSULE PO SCH ×3 (06:32→17:31)
[2017-04-26] MEDS: METHADONE HCL 5 MG TABLET (FOR DETOX USE ONLY) PO SCH (10:25)
[2017-04-26] MEDS: PRENATAL VITAMINS W/ FOLIC ACID TABLET (FP) PO SCH (10:25)
[2017-04-26] MEDS: NICOTINE 14 MG/24 HOURS TOPICAL PATCH TD SCH (10:26)
--- NOTE | 2017-04-26 11:13 | PN ---
S Progress Note (SOAP) Subjective: ALERT,IRRITABLE,ANXIOUS,INTERRUPTED SLEEP,TREMOR Objective: 04/26/17 11:12 Vital Signs Temperature 97.5 F L 04/26/17 10:09 Pulse Rate 91 H 04/26/17 10:09 Respiratory Rate 16 04/26/17 10:09 Blood Pressure 118/77 04/26/17 10:09 O2 Sat by Pulse Oximetry (%) Laboratory Last Values WBC 4.2 K/mm3 (4.0-10.0) 04/24/17 06:00 RBC 4.64 M/mm3 (3.60-5.2) 04/24/17 06:00 Hgb 12.5 GM/dL (10.7-15.3) 04/24/17 06:00 Hct 38.8 % (32.4-45.2) 04/24/17 06:00 MCV 83.5 fl (80-96) 04/24/17 06:00 MCH 26.9 pg (25.7-33.7) 04/24/17 06:00 MCHC 32.2 g/dl (32.0-36.0) 04/24/17 06:00 RDW 16.5 % (11.6-15.6) H 04/24/17 06:00 Plt Count 237 K/MM3 (134-434) D 04/24/17 06:00 MPV 9.1 fl (7.5-11.1) 04/24/17 06:00 Sodium 141 mmol/L (136-145) 04/24/17 06:00 Potassium 4.1 mmol/L (3.5-5.1) 04/24/17 06:00 Chloride 104 mmol/L (98-107) 04/24/17 06:00 Carbon Dioxide 29 mmol/L (21-32) 04/24/17 06:00 Anion Gap 8 (8-16) 04/24/17 06:00 BUN 8 mg/dL (7-18) 04/24/17 06:00 Creatinine 0.6 mg/dL (0.55-1.02) 04/24/17 06:00 Creat Clearance w eGFR > 60 (>60) 04/24/17 06:00 Random Glucose 77 mg/dL (74-106) 04/24/17 06:00 Calcium 8.7 mg/dL (8.5-10.1) 04/24/17 06:00 Total Bilirubin 0.7 mg/dL (0.2-1.0) D 04/24/17 06:00 AST 15 U/L (15-37) D 04/24/17 06:00 ALT 16 U/L (12-78) 04/24/17 06:00 Alkaline Phosphatase 70 U/L (45-117) D 04/24/17 06:00 Total Protein 6.7 g/dl (6.4-8.2) 04/24/17 06:00 Albumin 3.4 g/dl (3.4-5.0) 04/24/17 06:00 Urine Color Ltyellow 04/25/17 10:00 Urine Appearance Slcloudy 04/25/17 10:00 Urine pH 6.0 (5.0-8.0) D 04/25/17 10:00 Ur Specific [place] 1.015 (1.005-1.025) 04/25/17 10:00 Urine Protein Negative (NEGATIVE) 04/25/17 10:00 Urine Glucose (UA) 1+ (NEGATIVE) H 04/25/17 10:00 Urine Ketones Negative (NEGATIVE) 04/25/17 10:00 Urine Blood 3+ (NEGATIVE) H 04/25/17 10:00 Urine Nitrite Negative (NEGATIVE) 04/25/17 10:00 Urine Bilirubin Negative (NEGATIVE) 04/25/17 10:00 Urine Urobilinogen Negative mg/dL (0.2-1.0) 04/25/17 10:00 Ur Leukocyte Esterase Negative (NEGATIVE) 04/25/17 10:00 Urine RBC 33 /hpf (0-3) 04/25/17 10:00 Urine WBC 20 /hpf (3-5) 04/25/17 10:00 Ur Epithelial Cells Rare /hpf (FEW) 04/25/17 10:00 Urine Bacteria Rare /hpf (NONE SEEN) 04/25/17 10:00 Urine Mucus Rare 04/25/17 10:00 RPR Titer Nonreactive (NONREACTIVE) 04/24/17 06:00 Assessment: 04/26/17 11:12 WITHDRAWAL SYMPTOM Plan: CONTINUE DETOX,REPEAT UA
[2017-04-26] MEDS: traZODone HCL 50 MG TABLET (FP) PO SCH (22:26)
[2017-04-26] MEDS: THIAMINE HCL 100 MG TABLET (FP) PO SCH (22:26)
[2017-04-26] MEDS: QUEtiapine FUMARATE 200 MG TABLET PO SCH (22:27)
[2017-04-26] MEDS: chlordiazePOXIDE HCL 10 MG CAPSULE PO SCH (22:27)
[2017-04-27] MEDS: chlordiazePOXIDE HCL 10 MG CAPSULE PO SCH ×3 (07:16→17:17)
[2017-04-27] MEDS ORDERED: METHADONE HCL 10 MG TABLET (FOR DETOX USE ONLY) PO SCH (10:00)
[2017-04-27] MEDS: PRENATAL VITAMINS W/ FOLIC ACID TABLET (FP) PO SCH (10:34)
[2017-04-27] MEDS: NICOTINE 14 MG/24 HOURS TOPICAL PATCH TD SCH (10:35)
--- NOTE | 2017-04-27 12:58 | PN ---
S Progress Note (SOAP) Subjective: alert,irritable,anxious,interrupted sleep,pain in the body Objective: 04/27/17 12:57 Vital Signs Temperature 98.4 F 04/27/17 10:00 Pulse Rate 89 04/27/17 10:00 Respiratory Rate 18 04/27/17 10:00 Blood Pressure 123/66 04/27/17 10:00 O2 Sat by Pulse Oximetry (%) Assessment: 04/27/17 12:57 withdrawal symptom Plan: continue detox,discharge in am
[2017-04-27 18:52] LABS: URINE APPEARANCE SLCLOUDY; URINE BILIRUBIN NEGATIVE (NEGATIVE); URINE BLOOD 2+ (NEGATIVE); URINE COLOR YELLOW; URINE GLUCOSE (UA) NEGATIVE (NEGATIVE); URINE KETONE NEGATIVE (NEGATIVE); URINE LEUK ESTERASE NEGATIVE (NEGATIVE); URINE NITRITE NEGATIVE (NEGATIVE); URINE PROTEIN NEGATIVE (NEGATIVE); URINE UROBILINOGEN NEGATIVE mg/dL (0.2-1.0)
[2017-04-27 19:04] LABS: CALCIUM OXALATE CRYSTALS FEW /hpf (NONE SEEN); URINE BACTERIA RARE /hpf (NONE SEEN); URINE MUCUS RARE; URINE RBC 12 /hpf (0-3); URINE WBC 1 /hpf (3-5)
[2017-04-27] MEDS: traZODone HCL 50 MG TABLET (FP) PO SCH (22:08)
[2017-04-27] MEDS: QUEtiapine FUMARATE 200 MG TABLET PO SCH (22:08)
[2017-04-27] MEDS: THIAMINE HCL 100 MG TABLET (FP) PO SCH (22:08)
[2017-04-28] MEDS ORDERED: METHADONE HCL 5 MG TABLET (FOR DETOX USE ONLY) PO SCH (06:00)
[2017-04-28] MEDS: NICOTINE 14 MG/24 HOURS TOPICAL PATCH TD SCH (09:06)
[2017-04-28] MEDS: PRENATAL VITAMINS W/ FOLIC ACID TABLET (FP) PO SCH (09:07)
--- NOTE | 2017-04-28 09:07 | DS ---
[facility] Detox Discharge Summary Admission Date: 04/23/17 Discharge Date: 04/28/17 - History Present History: Alcohol Dependence, Cocaine Dependence, Opioid Dependence Additional Comments: FOLLOW UP WITH AFTER CARE PROGRAM ARRANGEMENT Pertinent Past History: ASTHMA WEIGHT LOSS ANXIETY DEPRESSION DRUG INDUCED MOOD DISORDER - Physical Exam Results Vital Signs: Vital Signs Temperature 98.1 F 04/28/17 06:14 Pulse Rate 70 04/28/17 06:14 Respiratory Rate 18 04/28/17 06:14 Blood Pressure 131/82 04/28/17 06:14 O2 Sat by Pulse Oximetry (%) Pertinent Admission Physical Exam Findings: WITHDRAWAL SYMPTOM - Treatment Hospital Course: Detox Protocol Followed, Detoxed Safely, Responded well, Discharged Condition Good (DECLINED) Patient has Accepted a Rehab Referral to: DECLINED - Medication Discharge Medications: Ambulatory Orders Trazodone HCl [Desyrel -] 150 mg PO HS 01/02/17 Albuterol Sulfate Inhaler - [Ventolin HFA Inhaler -] 2 puff IH Q4H PRN #1 inhaler 01/07/17 Multivit with Iron-Minerals [Compete] 1 tab PO DAILY 04/23/17 Quetiapine Fumarate [Seroquel] 250 tab PO HS 04/23/17 Quetiapine Fumarate [Seroquel -] 200 mg PO HS #30 tab 04/24/17 Trazodone HCl [Desyrel -] 150 mg PO HS #30 tablet 04/24/17 - Diagnosis (1) Alcohol dependence with uncomplicated withdrawal Current Visit: Yes Status: Acute (2) Drug-induced mood disorder Current Visit: Yes Status: Acute (3) Nicotine dependence Current Visit: Yes Status: Acute Qualifiers: Nicotine product type: cigarettes Substance use status: in withdrawal Qualified Code(s): F17.213 - Nicotine dependence, cigarettes, with withdrawal (4) Opioid dependence with withdrawal Current Visit: Yes Status: Acute (5) Weight loss Current Visit: Yes Status: Acute (6) Asthma Current Visit: Yes Status: Chronic Qualifiers: Asthma severity: mild intermittent Asthma complication type: with status asthmaticus Qualified Code(s): J45.22 - Mild intermittent asthma with status asthmaticus (7) Cocaine dependence, uncomplicated Current Visit: Yes Status: Chronic (8) History of asthma Current Visit: No Status: Chronic (9) Seizure after head injury Current Visit: No Status: Suspected - AMA Did Patient Leave Against Medical Advice: No
[2017-04-28 10:20] VITALS: BP 117/77; PULSE 86; TEMP 97.3
== END 2017-04-28 09:58 | disposition home or self-care (01) | DRG 773 ==
LOC: YASAS 11:02 → Y6N 14:41
PROVIDERS: ADMIT Internal Medicine; ATTEND Internal Medicine
PROC: HZ2ZZZZ Detoxification Services for Substance Abuse Treatment (ICD-10-PCS; principal; 2017-04-23)
DX: F11.23 Opioid dependence with withdrawal (principal); F10.230 Alcohol dependence with withdrawal, uncomplicated; F14.20 Cocaine dependence, uncomplicated; F17.210 Nicotine dependence, cigarettes, uncomplicated; F19.24 Other psychoactive substance dependence with psychoactive substance-induced mood disorder; F34.1 Dysthymic disorder; F41.8 Other specified anxiety disorders; J45.22 Mild intermittent asthma with status asthmaticus; B18.2 Chronic viral hepatitis C; R00.1 Bradycardia, unspecified; L74.0 Miliaria rubra; M54.5 Low back pain; Z86.2 Personal history of diseases of the blood and blood-forming organs and certain disorders involving the immune mechanism; Z86.69 Personal history of other diseases of the nervous system and sense organs; Z87.898 Personal history of other specified conditions
CPT/HCPCS: 36415; 80053; 81003; 81015; 85027; 86593; 93005; 93010

== ENCOUNTER 2018-07-21 10:21 | Inpatient (IN) | payer OTHER ==
[2018-07-21 10:37] VITALS: BMI 20.7
--- NOTE | 2018-07-21 13:37 | HP ---
CIWA Score Nausea/Vomitin Muscle Tremors: 2 Anxiety: 2 Agitation: 2 Paroxysmal Sweats: 1-Minimal Palms Moist Orientation: 0-Oriented Tacttile Disturbances: 1-Very Mild Itch/Numbness Auditory Disturbances: 1-Very Mild Visual Disturbances: 0-None Headache: 2-Mild CIWA-Ar Total Score: 13 - Admission Criteria OASAS Guidelines: Admission for Medically Managed Detox: Requires at least one of the followin. CIWA greater than 12 2. Seizures within the past 24 hours 3. Delirium tremens within the past 24 hours 4. Hallucinations within the past 24 hours 5. Acute intervention needed for co occurring medical disorder 6. Acute intervention needed for co occurring psychiatric disorder 7. Severe withdrawal that cannot be handled at a lower level of care (continued vomiting, continued diarrhea, abnormal vital signs) requiring intravenous medication and/or fluids 8. Patient presents the following: CIWA greater than 12 Admission Criteria Met: Admission criteria met Admission ROS S - HPI Chief Complaint: i am here for detox from alcohol,cocaine ,marijuana and heroin abused,mmtp 100 mgs/day Allergies/Adverse Reactions: Allergies Allergy/AdvReac Type Severity Reaction Status Date / Time No Known Allergies Allergy Verified 07/21/18 12:29 History of Present Illness: this 47 years old female with alcohol,cociane,marijuana,heroin abused,mmtp 100 mgs/day, last medicated today, seizure last at age 16 nicotine dependence weight loss bipolar disorder longest period of sobriety 2 months Exam Limitations: No Limitations - Ebola screening Have you been sick,other than usual withdrawal symptoms: No - Review of Systems Constitutional: Loss of Appetite, Malaise, Night Sweats, Changes in sleep, Weakness, Unintentional Wgt. Loss EENT: reports: Nose Congestion Respiratory: reports: No Symptoms reported, Other (asthma) Cardiac: reports: No Symptoms Reported GI: reports: Nausea, Vomiting, Abdominal cramping : reports: No Symptoms Reported Musculoskeletal: reports: Back Pain, Muscle Pain Integumentary: reports: Dryness Neuro: reports: Headache, Tremors Endocrine: reports: No Symptoms Reported Hematology: reports: No Symptoms Reported Psychiatric: reports: No Sypmtoms Reported, Judgement Intact, Mood/Affect Appropiate, Orientated x3, Anxious (bipolar disorder), Depressed Patient History - Patient Medical History Hx Anemia: Yes (NO TREATMENT) Hx Asthma: Yes (on albuterol inhaler) Hx Chronic Obstructive Pulmonary Disease (COPD): No Hx Cancer: No Hx Cardiac Disorders: No Hx Congestive Heart Failure: No Hx Hypertension: No Hx Hypercholesterolemia: No Hx Pacemaker: No HX Cerebrovascular Accident: No Hx Seizures: Yes (r/t head trauma-last apisode was at age 16) Hx Dementia: No Hx Diabetes: No Hx Gastrointestinal Disorders: No Hx Liver Disease: No Hx Genitourinary Disorders: No Hx Sexually Transmitted Disorders: No Hx Renal Disease (ESRD): No Hx Thyroid Disease: No Hx Human Immunodeficiency Virus (HIV): No (NEGATIVE HX LAST 11/16) Hx Hepatitis C: Yes (treated) Hx Depression: Yes Hx Suicide Attempt: No Hx Bipolar Disorder: Yes Hx Schizophrenia: No Other Medical History: no suicidal,no homicidal - Patient Surgical History Past Surgical History: No Hx Neurologic Surgery: No Hx Cataract Extraction: No Hx Cardiac Surgery: No Hx Lung Surgery: No Hx Breast Surgery: No Hx Breast Biopsy: No Hx Abdominal Surgery: No Hx Appendectomy: No Hx Cholecystectomy: No Hx Genitourinary Surgery: No Hx Section: No Hx Orthopedic Surgery: No Hx Hysterectomy: No Anesthesia Reaction: No - PPD History Previous Implant?: Yes Documented Results: Negative w/proof Implanted On Prior [facility] Admission?: Yes Date: 01/04/17 Results: 0 mm PPD to be Administered?: Yes - Reproductive History Patient is a Female of Child Bearing Age (11 -55 yrs old): Yes Last Menstrual Period: 05/23/17 Patient : No - Smoking Cessation Smoking history: Current every day smoker Have you smoked in the past 12 months: Yes Aproximately how many cigarettes per day: 5 Cigars Per Day: 0 Hx Chewing Tobacco Use: No Initiated information on smoking cessation: Yes 'Breaking Loose' booklet given: 07/21/18 - Substance & Tx. History Hx Alcohol Use: Yes Hx Substance Use: Yes Substance Use Type: Alcohol, Cocaine, Heroin Hx Substance Use Treatment: Yes ([facility] 05/29/17 to 06/02/18) - Substances Abused Cocaine Route: Smoking Frequency: 3-6 times per week Amount used: $50 Age of first use: 20 Date of Last Use: 07/19/18 Heroin Route: Inhalation Frequency: 3-6 times per week Amount used: 2 bags Age of first use: 20 Date of Last Use: 07/19/18 Alcohol-cognac/beer Route: Oral Frequency: Daily Amount used: 1/2 pint/3 (16 oz.) Age of first use: 17 Date of Last Use: 07/21/18 Family Disease History - Family Disease History Family Disease History: Diabetes: Brother, CA: Mother (DECESED,CA LUNG), Other: Father (ALCOHOL,DSA,), Mother, Sister ( FIRE) Admission Physical Exam [facility] - Vital Signs Vital Signs: Vital Signs - 24 hr 07/21/18 10:33 Temperature 97.7 F Pulse Rate 74 Respiratory 18 Rate Blood Pressure 108/77 - Physical General Appearance: Yes: Moderate Distress, Tremorous, Irritable, Sweating, Anxious HEENTM: Yes: Normal ENT Inspection, TEE, Pharynx Normal Respiratory: Yes: Lungs Clear, Normal Breath Sounds, No Respiratory Distress Neck: Yes: Within Normal Limits, Supple, Trachea in good position Breast: Yes: Breast Exam Deferred Cardiology: Yes: Within Normal Limits, Regular Rhythm, Regular Rate, S1, S2 Abdominal: Yes: Within Normal Limits, Normal Bowel Sounds, Non Tender, Flat, Soft Genitourinary: Yes: Within Normal Limits Back: Yes: Muscle Spasm Musculoskeletal: Yes: Back pain, Muscle Pain Extremities: Yes: Tremors 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 NML intact, Fully Oriented, Alert, Motor Strength 5/5 Integumentary: Yes: Dry Lymphatic: Yes: Within Normal Limits - Diagnostic (1) Alcohol dependence with uncomplicated withdrawal Current Visit: No Status: Chronic (2) Cannabis dependence Current Visit: Yes Status: Acute (3) Cocaine dependence, uncomplicated Current Visit: No Status: Chronic (4) Methadone maintenance therapy patient Current Visit: Yes Status: Acute (5) Asthma Current Visit: Yes Status: Acute (6) Weight loss Current Visit: Yes Status: Acute (7) Contact dermatitis Current Visit: No Status: Acute Cleared for Admission [facility] - Detox or Rehab [facility] Level of Care: Medically Managed Detox Regimen/Protocol: Librium [facility] Breath Alcohol Content Breath Alcohol Content: 0 Urine Pregancy Test - Result Urine Test Results: Negative- NO Line Present Urine Drug Screen - Results Drug Screen Negative: No Urine Drug Screen Results: THC-Marijuana, DENISA-Cocaine, OPI-Opiates, BZO- Benzodiazepines, MTD-Methadone
[2018-07-21] MEDS ORDERED: MAGNESIUM HYDROX 2400MG/30ML ORAL SUSPENSION 30 ML CUP PO PRN (13:47)
[2018-07-21] MEDS ORDERED: guaiFENesin/D-METHORPHAN HB 10 ML UNIT-DOSE CUPS PO PRN (13:47)
[2018-07-21] MEDS ORDERED: MAGNESIUM CITRATE 300 ML BOTTLE PO PRN (13:47)
[2018-07-21] MEDS ORDERED: LOPERAMIDE HCL 2 MG CAPSULE PO PRN (13:47)
[2018-07-21] MEDS ORDERED: ACETAMINOPHEN 325 MG TABLET (FP) PO PRN (13:47)
[2018-07-21] MEDS ORDERED: MAG HYDROX/AL HYDROX/SIMETH 30 ML UNIT-DOSE CUP PO PRN (13:47)
[2018-07-21] MEDS ORDERED: MENTHOL/PHENOL 1 EACH UD MM PRN (13:47)
[2018-07-21] MEDS ORDERED: chlordiazePOXIDE HCL 25 MG CAPSULE PO PRN (13:47)
[2018-07-21] MEDS ORDERED: P-EPHED 60MG/TRIPROLIDI 2.5MG TABLET PO PRN (13:47)
[2018-07-21] MEDS ORDERED: IBUPROFEN 400 MG TABLET (FP) PO PRN (13:47)
[2018-07-21] MEDS ORDERED: ALBUTEROL SO4 8 GM HFA INHALER IH PRN (13:50)
[2018-07-21] MEDS ORDERED: COLLOIDAL OATMEAL 1 BAR EACH TP PRN (13:51)
[2018-07-21] MEDS ORDERED: ARTIFICIAL TEARS (POLYVINYL ALCOHOL) OPTH DROPS OU PRN (13:53)
[2018-07-21] MEDS: VITAMINS A AND D TOPICAL OINTMENT 60 GM TUBE TP SCH ×2 (17:44→23:12)
[2018-07-21] MEDS: chlordiazePOXIDE HCL 25 MG CAPSULE PO SCH ×2 (17:44→22:26)
[2018-07-21] MEDS: HYDROCORTISONE 0.5% TOPICAL CREAM 30 GM TUBE TP SCH (22:26)
[2018-07-21] MEDS: THIAMINE HCL 100 MG TABLET (FP) PO SCH (22:26)
[2018-07-21] MEDS: MELATONIN 5 MG TABLETS PO PRN (22:27)
[2018-07-22 03:06] LABS: URINE APPEARANCE CLOUDY; URINE COLOR AMBER; URINE GLUCOSE (UA) NEGATIVE (NEGATIVE); URINE KETONE NEGATIVE (NEGATIVE); URINE LEUK ESTERASE TRACE (NEGATIVE); URINE NITRITE NEGATIVE (NEGATIVE); URINE PROTEIN 1+ (NEGATIVE); URINE UROBILINOGEN 4.0 E.U/dl mg/dL (0.2-1.0)
[2018-07-22 03:12] LABS: CALCIUM OXALATE CRYSTALS RARE /hpf (NONE SEEN); EPI CELLS MODERATE /HPF (FEW); URINE BACTERIA MANY /hpf (NONE SEEN); URINE HYALINE CAST 3 /lpf; URINE MUCUS MANY
[2018-07-22] MEDS ORDERED: METHADONE HCL 40 MG DISPERSABLE TABLET ONE (04:47)
[2018-07-22] MEDS ORDERED: METHADONE HCL 10 MG TABLET ONE (04:47)
[2018-07-22] MEDS: chlordiazePOXIDE HCL 25 MG CAPSULE PO SCH ×4 (05:39→22:31)
[2018-07-22] MEDS: METHADONE 80 MG, METHADONE 20 MG PO SCH (05:40)
[2018-07-22] MEDS: VITAMINS A AND D TOPICAL OINTMENT 60 GM TUBE TP SCH ×4 (05:42→23:47)
[2018-07-22] MEDS ORDERED: METHADONE HCL 10 MG TABLET PO SCH (06:00)
[2018-07-22] MEDS ORDERED: IBUPROFEN 600 MG TABLET (FP) PO PRN (10:04)
[2018-07-22 10:07] LABS: HEMATOCRIT 35.2 % (32.4-45.2); HEMOGLOBIN 11.9 GM/dL (10.7-15.3); MCH 29.1 pg (25.7-33.7); MCHC 33.7 g/dl (32.0-36.0); MEAN CELL VOLUME 86.1 fl (80-96); MEAN PLT VOLUME 9.5 fl (7.5-11.1); PLATELET COUNT 193 K/MM3 (134-434); RBC 4.09 M/mm3 (3.60-5.2); RDW 14.2 % (11.6-15.6); WHITE BLOOD COUNT 4.3 K/mm3 (4.0-10.0)
[2018-07-22] MEDS: HYDROCORTISONE 0.5% TOPICAL CREAM 30 GM TUBE TP SCH ×2 (10:10→22:31)
[2018-07-22] MEDS: PRENATAL VITAMINS W/ FOLIC ACID TABLET (FP) PO SCH (10:10)
[2018-07-22] MEDS: LIDOCAINE 5% TOPICAL PATCH TP SCH (10:11)
[2018-07-22 10:35] LABS: ALBUMIN 3.1 g/dl (3.4-5.0); ALK PHOS 82 U/L (45-117); ANION GAP 7 MMOL/L (8-16); BILIRUBIN,TOTAL 0.2 mg/dL (0.2-1); BLOOD UREA NITROGEN 14 mg/dL (7-18); CALCIUM 8.6 mg/dL (8.5-10.1); CHLORIDE 104 mmol/L (98-107); CO2 31 mmol/L (21-32); CREATININE 0.7 mg/dL (0.55-1.3); GLUCOSE,RANDOM 98 mg/dL (74-106); POTASSIUM 4.2 mmol/L (3.5-5.1); SGOT/AST 19 U/L (15-37); SGPT/ALT 18 U/L (13-61); SODIUM 142 mmol/L (136-145); TOT PROT 6.2 g/dl (6.4-8.2)
--- NOTE | 2018-07-22 11:26 | PN ---
[facility] CIWA - CIWA Score Nausea/Vomitin-No Nausea/No Vomiting Muscle Tremors: 3 Anxiety: 3 Agitation: 3 Paroxysmal Sweats: 3 Orientation: 0-Oriented Tacttile Disturbances: 0-None Auditory Disturbances: 0-None Visual Disturbances: 0-None Headache: 0-None Present CIWA-Ar Total Score: 12 S Progress Note (SOAP) Subjective: agitation low back pain sweats interrupted sleep Objective: 07/22/18 11:24 Vital Signs Temperature 97.7 F 07/22/18 09:44 Pulse Rate 61 07/22/18 09:44 Respiratory Rate 18 07/22/18 09:44 Blood Pressure 113/62 07/22/18 09:44 O2 Sat by Pulse Oximetry (%) Laboratory Tests 07/21/18 07/22/18 07/22/18 23:55 07:00 07:00 WBC 4.3 RBC 4.09 Hgb 11.9 Hct 35.2 MCV 86.1 MCH 29.1 MCHC 33.7 RDW 14.2 D Plt Count 193 MPV 9.5 D Sodium 142 Potassium 4.2 Chloride 104 Carbon Dioxide 31 Anion Gap 7 L BUN 14 Creatinine 0.7 Creat Clearance w eGFR > 60 Random Glucose 98 Calcium 8.6 Total Bilirubin 0.2 AST 19 ALT 18 Alkaline Phosphatase 82 Total Protein 6.2 L Albumin 3.1 L Urine Color Belkis Urine Appearance Cloudy Urine pH 5.0 Ur Specific [place] 1.024 Urine Protein 1+ H Urine Glucose (UA) Negative Urine Ketones Negative Urine Blood Negative Urine Nitrite Negative Urine Bilirubin 2.0 Urine Urobilinogen 4.0 e.u/dl H Ur Leukocyte Esterase Trace Urine WBC (Auto) None Urine RBC (Auto) 7 Ur Epithelial Cells Moderate Calcium Oxalate Crystal Rare Urine Bacteria Many Hyaline Casts 3 Urine Mucus Many aaox3 ambulating no acute distress repeat u/a Assessment: 07/22/18 11:25 withdrawal sx Plan: continue detox increase fluids lidocaine patch ordered motrin 600mg prn
--- NOTE | 2018-07-22 11:37 | EKG ---
Test Reason : Blood Pressure : / mmHG Vent. Rate : 058 BPM Atrial Rate : 058 BPM P-R Int : 178 ms QRS Dur : 068 ms QT Int : 440 ms P-R-T Axes : 068 077 057 degrees QTc Int : 431 ms SINUS BRADYCARDIA WITH SINUS ARRHYTHMIA OTHERWISE NORMAL ECG WHEN COMPARED WITH ECG OF 30-MAY-2017 08:13, NO SIGNIFICANT CHANGE WAS FOUND Confirmed by Herminio Schmidt MD ([id number]) on 07/22/2018 11:36:51 AM Referred By: Confirmed By:Herminio Schmidt MD
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
[2018-07-22] MEDS: traZODone HCL 50 MG TABLET (FP) PO SCH (22:30)
[2018-07-22] MEDS: THIAMINE HCL 100 MG TABLET (FP) PO SCH (22:30)
[2018-07-22] MEDS: QUEtiapine FUMARATE 100 MG TABLET (FP) PO SCH (22:30)
[2018-07-22] MEDS: LIDOCAINE PATCH REMOVAL MC SCH (22:30)
[2018-07-23] MEDS ORDERED: METHADONE HCL 40 MG DISPERSABLE TABLET ONE (05:45)
[2018-07-23] MEDS ORDERED: METHADONE HCL 10 MG TABLET ONE (05:45)
[2018-07-23] MEDS: METHADONE 80 MG, METHADONE 20 MG PO SCH (06:46)
[2018-07-23] MEDS: VITAMINS A AND D TOPICAL OINTMENT 60 GM TUBE TP SCH ×3 (06:46→19:55)
[2018-07-23] MEDS: chlordiazePOXIDE HCL 25 MG CAPSULE PO SCH ×2 (06:49→10:36)
[2018-07-23 10:26] LABS: URINE APPEARANCE SLCLOUDY; URINE BILIRUBIN NEGATIVE (<2.0 mg/dL); URINE COLOR YELLOW; URINE GLUCOSE (UA) NEGATIVE (NEGATIVE); URINE KETONE NEGATIVE (NEGATIVE); URINE LEUK ESTERASE NEGATIVE (NEGATIVE); URINE NITRITE NEGATIVE (NEGATIVE); URINE PROTEIN NEGATIVE (NEGATIVE)
[2018-07-23] MEDS: LIDOCAINE 5% TOPICAL PATCH TP SCH (10:36)
[2018-07-23] MEDS: PRENATAL VITAMINS W/ FOLIC ACID TABLET (FP) PO SCH (10:36)
[2018-07-23] MEDS: HYDROCORTISONE 0.5% TOPICAL CREAM 30 GM TUBE TP SCH ×2 (10:37→22:21)
--- NOTE | 2018-07-23 10:56 | PN ---
[facility] CIWA - CIWA Score Nausea/Vomitin-No Nausea/No Vomiting Muscle Tremors: 3 Anxiety: 2 Agitation: 2 Paroxysmal Sweats: 3 Orientation: 0-Oriented Tacttile Disturbances: 0-None Auditory Disturbances: 0-None Visual Disturbances: 0-None Headache: 0-None Present CIWA-Ar Total Score: 10 S Progress Note (SOAP) Subjective: mild shakes sweats interrupted sleep Objective: 07/23/18 10:55 Vital Signs Temperature 98.1 F 07/23/18 09:56 Pulse Rate 69 07/23/18 09:56 Respiratory Rate 18 07/23/18 09:56 Blood Pressure 103/65 07/23/18 09:56 O2 Sat by Pulse Oximetry (%) Laboratory Tests 07/21/18 07/22/18 07/22/18 23:55 07:00 07:00 WBC 4.3 RBC 4.09 Hgb 11.9 Hct 35.2 MCV 86.1 MCH 29.1 MCHC 33.7 RDW 14.2 D Plt Count 193 MPV 9.5 D Sodium Potassium Chloride Carbon Dioxide Anion Gap BUN Creatinine Creat Clearance w eGFR Random Glucose Calcium Total Bilirubin AST ALT Alkaline Phosphatase Total Protein Albumin Urine Color Belkis Urine Appearance Cloudy Urine pH 5.0 Ur Specific [place] 1.024 Urine Protein 1+ H Urine Glucose (UA) Negative Urine Ketones Negative Urine Blood Negative Urine Nitrite Negative Urine Bilirubin 2.0 Urine Urobilinogen 4.0 e.u/dl H Ur Leukocyte Esterase Trace Urine WBC (Auto) None Urine RBC (Auto) 7 Ur Epithelial Cells Moderate Calcium Oxalate Crystal Rare Urine Bacteria Many Hyaline Casts 3 Urine Mucus Many RPR Titer HIV 1&2 Antibody Screen Negative HIV P24 Antigen Negative 07/22/18 07/22/18 07/22/18 07:00 07:00 07:00 WBC RBC Hgb Hct MCV MCH MCHC RDW Plt Count MPV Sodium 142 Potassium 4.2 Chloride 104 Carbon Dioxide 31 Anion Gap 7 L BUN 14 Creatinine 0.7 Creat Clearance w eGFR > 60 Random Glucose 98 Calcium 8.6 Total Bilirubin 0.2 AST 19 ALT 18 Alkaline Phosphatase 82 Total Protein 6.2 L Albumin 3.1 L Urine Color Yellow Urine Appearance Slcloudy Urine pH 5.0 Ur Specific [place] 1.026 Urine Protein Negative Urine Glucose (UA) Negative Urine Ketones Negative Urine Blood Negative Urine Nitrite Negative Urine Bilirubin Negative Urine Urobilinogen 2.0 H Ur Leukocyte Esterase Negative Urine WBC (Auto) Urine RBC (Auto) Ur Epithelial Cells Calcium Oxalate Crystal Urine Bacteria Hyaline Casts Urine Mucus RPR Titer Nonreactive HIV 1&2 Antibody Screen HIV P24 Antigen aaox3 ambulating no acute distress Assessment: 07/23/18 10:55 withdrawal sx Plan: continue detox increase fluids
[2018-07-23] MEDS: chlordiazePOXIDE 5 MG CAPSULE PO SCH ×2 (19:55→22:21)
[2018-07-23] MEDS: hydrOXYzine PAMOATE 25 MG CAPSULE (FP) PO PRN (22:20)
[2018-07-23] MEDS: QUEtiapine FUMARATE 100 MG TABLET (FP) PO SCH (22:20)
[2018-07-23] MEDS: traZODone HCL 50 MG TABLET (FP) PO SCH (22:20)
[2018-07-23] MEDS: THIAMINE HCL 100 MG TABLET (FP) PO SCH (22:21)
[2018-07-23] MEDS: LIDOCAINE PATCH REMOVAL MC SCH (22:21)
[2018-07-24] MEDS: VITAMINS A AND D TOPICAL OINTMENT 60 GM TUBE TP SCH ×4 (01:21→18:52)
[2018-07-24] MEDS ORDERED: METHADONE HCL 10 MG TABLET ONE (05:21)
[2018-07-24] MEDS ORDERED: METHADONE HCL 40 MG DISPERSABLE TABLET ONE (05:21)
[2018-07-24] MEDS: chlordiazePOXIDE 5 MG CAPSULE PO SCH ×2 (05:49→11:05)
[2018-07-24] MEDS: METHADONE 80 MG, METHADONE 20 MG PO SCH (05:49)
[2018-07-24] MEDS: HYDROCORTISONE 0.5% TOPICAL CREAM 30 GM TUBE TP SCH ×2 (11:05→23:16)
[2018-07-24] MEDS: LIDOCAINE 5% TOPICAL PATCH TP SCH (11:05)
[2018-07-24] MEDS: PRENATAL VITAMINS W/ FOLIC ACID TABLET (FP) PO SCH (11:05)
--- NOTE | 2018-07-24 11:13 | PN ---
[facility] Progress Note (SOAP) Subjective: sleepy sweats Objective: 07/24/18 11:14 Vital Signs Temperature 98.4 F 07/24/18 09:37 Pulse Rate 67 07/24/18 09:37 Respiratory Rate 16 07/24/18 09:37 Blood Pressure 99/52 L 07/24/18 09:37 O2 Sat by Pulse Oximetry (%) aaox3 ambulating no acute distress Assessment: 07/24/18 11:14 mild withdrawal sx Plan: continue detox increase fluids d/c in am
[2018-07-24] MEDS: chlordiazePOXIDE HCL 10 MG CAPSULE PO SCH ×2 (18:52→22:45)
[2018-07-24] MEDS: MELATONIN 5 MG TABLETS PO PRN (22:45)
[2018-07-24] MEDS: traZODone HCL 50 MG TABLET (FP) PO SCH (22:45)
[2018-07-24] MEDS: QUEtiapine FUMARATE 100 MG TABLET (FP) PO SCH (22:45)
[2018-07-24] MEDS: THIAMINE HCL 100 MG TABLET (FP) PO SCH (22:45)
[2018-07-24] MEDS: hydrOXYzine PAMOATE 25 MG CAPSULE (FP) PO PRN (22:45)
[2018-07-24] MEDS: LIDOCAINE PATCH REMOVAL MC SCH (22:47)
[2018-07-25] MEDS ORDERED: METHADONE HCL 40 MG DISPERSABLE TABLET ONE (03:56)
[2018-07-25] MEDS ORDERED: METHADONE HCL 10 MG TABLET ONE (03:56)
[2018-07-25] MEDS: chlordiazePOXIDE HCL 10 MG CAPSULE PO SCH ×2 (06:09→10:21)
[2018-07-25] MEDS: METHADONE 80 MG, METHADONE 20 MG PO SCH (06:09)
[2018-07-25] MEDS: VITAMINS A AND D TOPICAL OINTMENT 60 GM TUBE TP SCH ×2 (06:13→06:53)
--- NOTE | 2018-07-25 08:40 | DS ---
[facility] Detox Discharge Summary Admission Date: 07/21/18 Discharge Date: 07/25/18 - History Present History: Alcohol Dependence, Cannabis Dependence, MMTP - Physical Exam Results Vital Signs: Vital Signs Temperature 99.3 F 07/25/18 07:35 Pulse Rate 74 07/25/18 06:00 Respiratory Rate 18 07/25/18 06:00 Blood Pressure 115/67 07/25/18 06:00 O2 Sat by Pulse Oximetry (%) - Treatment Hospital Course: Detox Protocol Followed, Detoxed Safely, Responded well, Discharged Condition Good, Rehab Referral Accepted - Medication Discharge Medications: Ambulatory Orders Albuterol Sulfate Inhaler - [Ventolin HFA Inhaler -] 2 puff IH Q4H PRN #1 inhaler 04/28/17 Quetiapine Fumarate [Seroquel] 100 mg PO HS 07/21/18 traZODone HCL [Trazodone HCl] 50 mg PO HS 07/21/18 - Diagnosis (1) Asthma Current Visit: Yes Status: Chronic Qualifiers: Asthma severity: mild Asthma persistence: intermittent (2) Cannabis dependence Current Visit: No Status: Chronic (3) Methadone maintenance therapy patient Current Visit: Yes Status: Chronic (4) Weight loss Current Visit: Yes Status: Acute (5) Contact dermatitis Current Visit: No Status: Acute Qualifiers: Contact dermatitis type: unspecified (6) Drug-induced mood disorder Current Visit: No Status: Acute (7) Dry skin Current Visit: No Status: Acute (8) Hepatitis C Current Visit: Yes Status: Chronic Qualifiers: Viral hepatitis chronicity: chronic (9) Insomnia Current Visit: No Status: Acute (10) Nicotine dependence Current Visit: Yes Status: Chronic Qualifiers: Nicotine product type: cigarettes Substance use status: uncomplicated Qualified Code(s): F17.210 - Nicotine dependence, cigarettes, uncomplicated (11) Substance induced mood disorder Current Visit: Yes Status: Acute (12) Weight loss Current Visit: No Status: Acute (13) Acneiform rash Current Visit: No Status: Chronic (14) Cocaine dependence, uncomplicated Current Visit: No Status: Chronic (15) Low back pain Current Visit: No Status: Chronic Qualifiers: Chronicity: chronic Back pain laterality: bilateral Sciatica laterality: bilateral sciatica (16) Methadone maintenance therapy patient Current Visit: Yes Status: Chronic (17) Mood disorder Current Visit: Yes Status: Chronic (18) Anxiety and depression Current Visit: No Status: Suspected (19) Depression (emotion) Current Visit: No Status: Suspected Qualifiers: Depression Type: dysthymia Qualified Code(s): F34.1 - Dysthymic disorder (20) Seizure after head injury Current Visit: No Status: Suspected - AMA Did Patient Leave Against Medical Advice: No ([facility])
[2018-07-25 09:25] VITALS: BP 104/62; PULSE 80; TEMP 97.5
[2018-07-25] MEDS: LIDOCAINE 5% TOPICAL PATCH TP SCH (10:21)
[2018-07-25] MEDS: HYDROCORTISONE 0.5% TOPICAL CREAM 30 GM TUBE TP SCH (10:21)
[2018-07-25] MEDS: PRENATAL VITAMINS W/ FOLIC ACID TABLET (FP) PO SCH (10:21)
--- NOTE | 2018-07-25 12:37 | PN ---
[facility] Progress Note Note: Psychiatry Attending's note : Called for scripts. Patient is discharged today. Referred to an inpatient rehabilitation program. Treated at [address] [place] [address] with seroquel 100 mg/hs + trazodone 50 mg/hs. Chart reviewed. Doses confirmed. No report of adverse effects. 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 Scripts for both drugs : electronically sent to [facility].
== END 2018-07-25 11:50 | disposition other institution (70) | DRG 773 ==
LOC: YASAS 10:21 → Y6N 14:04
PROVIDERS: ADMIT Neuromusculoskeletal Medicine & OMM; ATTEND Neuromusculoskeletal Medicine & OMM
PROC: HZ2ZZZZ Detoxification Services for Substance Abuse Treatment (ICD-10-PCS; principal; 2018-07-21)
DX: F10.20 Alcohol dependence, uncomplicated (principal); F14.20 Cocaine dependence, uncomplicated; F12.20 Cannabis dependence, uncomplicated; F11.20 Opioid dependence, uncomplicated; F17.210 Nicotine dependence, cigarettes, uncomplicated; F19.24 Other psychoactive substance dependence with psychoactive substance-induced mood disorder; F34.1 Dysthymic disorder; F41.8 Other specified anxiety disorders; F39 Unspecified mood [affective] disorder; J45.20 Mild intermittent asthma, uncomplicated; B18.2 Chronic viral hepatitis C; G47.00 Insomnia, unspecified; R56.1 Post traumatic seizures; M54.41 Lumbago with sciatica, right side; M54.42 Lumbago with sciatica, left side; L70.8 Other acne; L25.9 Unspecified contact dermatitis, unspecified cause; L85.3 Xerosis cutis; R63.4 Abnormal weight loss; Z68.20 Body mass index [BMI] 20.0-20.9, adult
CPT/HCPCS: 36415; 80053; 81003; 81015; 85027; 86593; 87389; 93005; 93010

== ENCOUNTER 2018-07-25 13:30 | Inpatient (IN) | payer OTHER ==
[2018-07-25 14:23] VITALS: BMI 23.8
--- NOTE | 2018-07-25 14:59 | HP ---
[facility] Rehab Assess/Revision - Admission History Admitted to Rehab from: [facility] Date of Admission to Rehab: 07/25/18 - Vital signs Vital Signs: Vital Signs Period Temp Pulse Resp BP Sys/Nice Pulse Ox Last 24 Hr 96.6 F 78 18 99/62 - Findings Detox History & Physical reviewed: Yes Concur with findings: Yes Comments/Additional Findings: this 47 years old female with alcohol,cocaine, marijuana dependence,seeking rehab,. mmtp 100 mgs/day,. completed detox from [facility] from 07/21/18 to 07/25/18. for rehab as protocol Inpatient Rehab Admission - Initial Determination Are CD services needed?: Yes Free of communicable disease: Yes Not in need of hospitalization: Yes - Rehab Admission Criteria Previous failed treatment: Yes Poor recovery environment: Yes Comorbidities: Yes Lacks judgement: No Patient is meeting Inpatient Rehab admission criteria:: Yes
[2018-07-25] MEDS ORDERED: MENTHOL/PHENOL 1 EACH UD MM PRN (15:04)
[2018-07-25] MEDS ORDERED: MAG HYDROX/AL HYDROX/SIMETH 30 ML UNIT-DOSE CUP PO PRN (15:04)
[2018-07-25] MEDS ORDERED: LOPERAMIDE HCL 2 MG CAPSULE PO PRN (15:04)
[2018-07-25] MEDS ORDERED: P-EPHED 60MG/TRIPROLIDI 2.5MG TABLET PO PRN (15:04)
[2018-07-25] MEDS ORDERED: IBUPROFEN 400 MG TABLET (FP) PO PRN (15:04)
[2018-07-25] MEDS ORDERED: guaiFENesin/D-METHORPHAN HB 10 ML UNIT-DOSE CUPS PO PRN (15:04)
[2018-07-25] MEDS ORDERED: hydrOXYzine PAMOATE 25 MG CAPSULE (FP) PO PRN (15:04)
[2018-07-25] MEDS ORDERED: MAGNESIUM HYDROX 2400MG/30ML ORAL SUSPENSION 30 ML CUP PO PRN (15:04)
[2018-07-25] MEDS ORDERED: ACETAMINOPHEN 325 MG TABLET (FP) PO PRN (15:04)
[2018-07-25] MEDS ORDERED: MAGNESIUM CITRATE 300 ML BOTTLE PO PRN (15:04)
[2018-07-25] MEDS ORDERED: ALBUTEROL SO4 8 GM HFA INHALER IH PRN (15:07)
[2018-07-25] MEDS ORDERED: MELATONIN 5 MG TABLETS PO PRN (22:00)
[2018-07-25] MEDS: HYDROCORTISONE 1% TOPICAL CREAM 30 GM TUBE TP SCH (22:12)
[2018-07-25] MEDS: THIAMINE HCL 100 MG TABLET (FP) PO SCH (22:12)
[2018-07-26] MEDS ORDERED: METHADONE HCL 40 MG DISPERSABLE TABLET ONE (05:50)
[2018-07-26] MEDS ORDERED: METHADONE HCL 10 MG TABLET ONE (05:50)
[2018-07-26] MEDS ORDERED: METHADONE HCL 10 MG TABLET PO SCH (06:00)
[2018-07-26] MEDS: METHADONE 80 MG, METHADONE 20 MG PO SCH (07:09)
[2018-07-26] MEDS ORDERED: METHADONE HCL 5 MG TABLET (FOR DETOX USE ONLY) PO SCH (10:00)
[2018-07-26] MEDS: PRENATAL VITAMINS W/ FOLIC ACID TABLET (FP) PO SCH (10:07)
[2018-07-26] MEDS: HYDROCORTISONE 1% TOPICAL CREAM 30 GM TUBE TP SCH ×2 (10:07→21:36)
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
[2018-07-26] MEDS: THIAMINE HCL 100 MG TABLET (FP) PO SCH (21:35)
[2018-07-26] MEDS: traZODone HCL 50 MG TABLET (FP) PO SCH (21:38)
[2018-07-26] MEDS: QUEtiapine FUMARATE 100 MG TABLET (FP) PO SCH (21:38)
[2018-07-27] MEDS ORDERED: METHADONE HCL 10 MG TABLET ONE (05:45)
[2018-07-27] MEDS ORDERED: METHADONE HCL 40 MG DISPERSABLE TABLET ONE (05:45)
[2018-07-27] MEDS: METHADONE 80 MG, METHADONE 20 MG PO SCH (07:08)
[2018-07-27] MEDS: PRENATAL VITAMINS W/ FOLIC ACID TABLET (FP) PO SCH (10:35)
[2018-07-27] MEDS: HYDROCORTISONE 1% TOPICAL CREAM 30 GM TUBE TP SCH ×2 (10:36→22:05)
[2018-07-27] MEDS: QUEtiapine FUMARATE 100 MG TABLET (FP) PO SCH (22:04)
[2018-07-27] MEDS: traZODone HCL 50 MG TABLET (FP) PO SCH (22:04)
[2018-07-27] MEDS: THIAMINE HCL 100 MG TABLET (FP) PO SCH (22:04)
[2018-07-28] MEDS ORDERED: METHADONE HCL 10 MG TABLET ONE (03:07)
[2018-07-28] MEDS ORDERED: METHADONE HCL 40 MG DISPERSABLE TABLET ONE (03:07)
[2018-07-28] MEDS: METHADONE 80 MG, METHADONE 20 MG PO SCH (06:44)
[2018-07-28] MEDS ORDERED: PT OWN MED DRAWER 7, Y5N ONE (08:41)
[2018-07-28] MEDS: PRENATAL VITAMINS W/ FOLIC ACID TABLET (FP) PO SCH (09:55)
[2018-07-28] MEDS: HYDROCORTISONE 1% TOPICAL CREAM 30 GM TUBE TP SCH ×2 (09:55→21:44)
[2018-07-28] MEDS: traZODone HCL 50 MG TABLET (FP) PO SCH (21:44)
[2018-07-28] MEDS: QUEtiapine FUMARATE 100 MG TABLET (FP) PO SCH (21:44)
[2018-07-28] MEDS: THIAMINE HCL 100 MG TABLET (FP) PO SCH (21:44)
[2018-07-29] MEDS ORDERED: METHADONE HCL 40 MG DISPERSABLE TABLET ONE (03:17)
[2018-07-29] MEDS ORDERED: METHADONE HCL 10 MG TABLET ONE (03:17)
[2018-07-29] MEDS: METHADONE 80 MG, METHADONE 20 MG PO SCH (06:45)
[2018-07-29] MEDS: PRENATAL VITAMINS W/ FOLIC ACID TABLET (FP) PO SCH (10:00)
[2018-07-29] MEDS: HYDROCORTISONE 1% TOPICAL CREAM 30 GM TUBE TP SCH ×2 (10:01→21:25)
[2018-07-29] MEDS: QUEtiapine FUMARATE 100 MG TABLET (FP) PO SCH (21:25)
[2018-07-29] MEDS: THIAMINE HCL 100 MG TABLET (FP) PO SCH (21:25)
[2018-07-29] MEDS: traZODone HCL 50 MG TABLET (FP) PO SCH (21:25)
[2018-07-30] MEDS ORDERED: METHADONE HCL 10 MG TABLET ONE (03:21)
[2018-07-30] MEDS ORDERED: METHADONE HCL 40 MG DISPERSABLE TABLET ONE (03:21)
[2018-07-30] MEDS: METHADONE 80 MG, METHADONE 20 MG PO SCH (06:33)
[2018-07-30] MEDS: PRENATAL VITAMINS W/ FOLIC ACID TABLET (FP) PO SCH (09:50)
[2018-07-30] MEDS: HYDROCORTISONE 1% TOPICAL CREAM 30 GM TUBE TP SCH ×2 (09:51→21:19)
[2018-07-30] MEDS: THIAMINE HCL 100 MG TABLET (FP) PO SCH (21:18)
[2018-07-30] MEDS: traZODone HCL 50 MG TABLET (FP) PO SCH (21:18)
[2018-07-30] MEDS: QUEtiapine FUMARATE 100 MG TABLET (FP) PO SCH (21:18)
[2018-07-31] MEDS ORDERED: METHADONE HCL 40 MG DISPERSABLE TABLET ONE (03:44)
[2018-07-31] MEDS ORDERED: METHADONE HCL 10 MG TABLET ONE (03:44)
[2018-07-31] MEDS: METHADONE 80 MG, METHADONE 20 MG PO SCH (06:40)
[2018-07-31] MEDS: PRENATAL VITAMINS W/ FOLIC ACID TABLET (FP) PO SCH (10:05)
[2018-07-31] MEDS: HYDROCORTISONE 1% TOPICAL CREAM 30 GM TUBE TP SCH ×2 (10:05→21:18)
[2018-07-31] MEDS: traZODone HCL 50 MG TABLET (FP) PO SCH (21:17)
[2018-07-31] MEDS: THIAMINE HCL 100 MG TABLET (FP) PO SCH (21:17)
[2018-07-31] MEDS: QUEtiapine FUMARATE 100 MG TABLET (FP) PO SCH (21:17)
[2018-07-31] MEDS: METHYL SALICYLATE/MENTHOL OINT 30 GM TUBE TP SCH (21:18)
[2018-08-01] MEDS ORDERED: METHADONE HCL 10 MG TABLET ONE (05:48)
[2018-08-01] MEDS ORDERED: METHADONE HCL 40 MG DISPERSABLE TABLET ONE (05:48)
[2018-08-01] MEDS: METHADONE 80 MG, METHADONE 20 MG PO SCH (06:31)
[2018-08-01] MEDS ORDERED: PT OWN MED DRAWER 7, Y5N ONE (08:43)
[2018-08-01] MEDS: PRENATAL VITAMINS W/ FOLIC ACID TABLET (FP) PO SCH (09:55)
[2018-08-01] MEDS: HYDROCORTISONE 1% TOPICAL CREAM 30 GM TUBE TP SCH ×2 (09:56→21:14)
[2018-08-01] MEDS: METHYL SALICYLATE/MENTHOL OINT 30 GM TUBE TP SCH ×2 (09:56→21:14)
[2018-08-01] MEDS: THIAMINE HCL 100 MG TABLET (FP) PO SCH (21:13)
[2018-08-01] MEDS: traZODone HCL 50 MG TABLET (FP) PO SCH (21:13)
[2018-08-01] MEDS: QUEtiapine FUMARATE 100 MG TABLET (FP) PO SCH (21:13)
[2018-08-02] MEDS ORDERED: METHADONE HCL 10 MG TABLET ONE (02:55)
[2018-08-02] MEDS ORDERED: METHADONE HCL 40 MG DISPERSABLE TABLET ONE (02:55)
[2018-08-02] MEDS: METHADONE 80 MG, METHADONE 20 MG PO SCH (06:42)
[2018-08-02] MEDS ORDERED: PT OWN MED DRAWER 7, Y5N ONE (08:44)
[2018-08-02] MEDS: METHYL SALICYLATE/MENTHOL OINT 30 GM TUBE TP SCH ×2 (10:13→21:16)
[2018-08-02] MEDS: PRENATAL VITAMINS W/ FOLIC ACID TABLET (FP) PO SCH (10:13)
[2018-08-02] MEDS: HYDROCORTISONE 1% TOPICAL CREAM 30 GM TUBE TP SCH ×2 (10:14→21:16)
[2018-08-02] MEDS: THIAMINE HCL 100 MG TABLET (FP) PO SCH (21:16)
[2018-08-02] MEDS: traZODone HCL 50 MG TABLET (FP) PO SCH (21:16)
[2018-08-02] MEDS: QUEtiapine FUMARATE 100 MG TABLET (FP) PO SCH (21:16)
[2018-08-03] MEDS ORDERED: METHADONE HCL 10 MG TABLET ONE (03:14)
[2018-08-03] MEDS ORDERED: METHADONE HCL 40 MG DISPERSABLE TABLET ONE (03:15)
[2018-08-03] MEDS: METHADONE 80 MG, METHADONE 20 MG PO SCH (07:01)
[2018-08-03] MEDS: PRENATAL VITAMINS W/ FOLIC ACID TABLET (FP) PO SCH (10:08)
[2018-08-03] MEDS: HYDROCORTISONE 1% TOPICAL CREAM 30 GM TUBE TP SCH ×2 (10:09→21:26)
[2018-08-03] MEDS: METHYL SALICYLATE/MENTHOL OINT 30 GM TUBE TP SCH ×2 (10:09→21:26)
[2018-08-03] MEDS: THIAMINE HCL 100 MG TABLET (FP) PO SCH (21:26)
[2018-08-03] MEDS: QUEtiapine FUMARATE 100 MG TABLET (FP) PO SCH (21:26)
[2018-08-03] MEDS: traZODone HCL 50 MG TABLET (FP) PO SCH (21:26)
[2018-08-04] MEDS ORDERED: METHADONE HCL 10 MG TABLET ONE (03:04)
[2018-08-04] MEDS ORDERED: METHADONE HCL 40 MG DISPERSABLE TABLET ONE (03:05)
[2018-08-04] MEDS: METHADONE 80 MG, METHADONE 20 MG PO SCH (06:17)
[2018-08-04] MEDS: HYDROCORTISONE 1% TOPICAL CREAM 30 GM TUBE TP SCH ×2 (10:14→21:20)
[2018-08-04] MEDS: PRENATAL VITAMINS W/ FOLIC ACID TABLET (FP) PO SCH (10:14)
[2018-08-04] MEDS: METHYL SALICYLATE/MENTHOL OINT 30 GM TUBE TP SCH ×2 (10:15→21:19)
--- NOTE | 2018-08-04 13:44 | PN ---
[facility] Progress Note Note: PATIENT HAS SMALL OPEN AREA TO RIGHT LATERAL THIGH OLD ABSCESS SITE. NO REDNESS , DISCHARGE OR SWELLING NOTED. WILL ORDER BACITRACIN TOPICALLY AND ALSO ORDER VISINE EYE DROPS FOR C/O ITCHING TO EYES. OU WITHOUT REDNESS OR SWELLING WELL. CONTINUE TO MONITOR CLINICALLY. Vital Signs Temperature 97.8 F 08/04/18 07:05 Pulse Rate 77 08/04/18 07:05 Respiratory Rate 18 08/04/18 07:05 Blood Pressure 90/61 08/04/18 07:05 O2 Sat by Pulse Oximetry (%)
[2018-08-04] MEDS: BACITRACIN 0.9 GM PACKET TP SCH (14:08)
[2018-08-04] MEDS: TETRAHYDROZOLINE HCL EYE DROPS OU SCH ×2 (15:57→21:20)
[2018-08-04] MEDS ORDERED: PT OWN MED DRAWER 7, Y5N ONE (16:02)
[2018-08-04] MEDS: QUEtiapine FUMARATE 100 MG TABLET (FP) PO SCH (21:19)
[2018-08-04] MEDS: THIAMINE HCL 100 MG TABLET (FP) PO SCH (21:19)
[2018-08-04] MEDS: traZODone HCL 50 MG TABLET (FP) PO SCH (21:19)
[2018-08-05] MEDS ORDERED: METHADONE HCL 10 MG TABLET ONE (05:56)
[2018-08-05] MEDS ORDERED: METHADONE HCL 40 MG DISPERSABLE TABLET ONE (05:56)
[2018-08-05] MEDS: METHADONE 80 MG, METHADONE 20 MG PO SCH (06:13)
[2018-08-05] MEDS: PRENATAL VITAMINS W/ FOLIC ACID TABLET (FP) PO SCH (10:03)
[2018-08-05] MEDS: BACITRACIN 0.9 GM PACKET TP SCH (10:03)
[2018-08-05] MEDS: METHYL SALICYLATE/MENTHOL OINT 30 GM TUBE TP SCH ×2 (10:04→21:20)
[2018-08-05] MEDS: HYDROCORTISONE 1% TOPICAL CREAM 30 GM TUBE TP SCH ×2 (10:04→21:34)
[2018-08-05] MEDS: TETRAHYDROZOLINE HCL EYE DROPS OU SCH ×2 (10:04→21:20)
[2018-08-05] MEDS ORDERED: PT OWN MED DRAWER 7, Y5N ONE (19:23)
[2018-08-05] MEDS: traZODone HCL 50 MG TABLET (FP) PO SCH (21:20)
[2018-08-05] MEDS: THIAMINE HCL 100 MG TABLET (FP) PO SCH (21:20)
[2018-08-05] MEDS: QUEtiapine FUMARATE 100 MG TABLET (FP) PO SCH (21:20)
[2018-08-06] MEDS ORDERED: METHADONE HCL 10 MG TABLET ONE (02:54)
[2018-08-06] MEDS ORDERED: METHADONE HCL 40 MG DISPERSABLE TABLET ONE (02:54)
[2018-08-06] MEDS: METHADONE 80 MG, METHADONE 20 MG PO SCH (06:39)
[2018-08-06] MEDS: BACITRACIN 0.9 GM PACKET TP SCH (09:48)
[2018-08-06] MEDS: PRENATAL VITAMINS W/ FOLIC ACID TABLET (FP) PO SCH (09:48)
[2018-08-06] MEDS: TETRAHYDROZOLINE HCL EYE DROPS OU SCH ×2 (09:48→21:15)
[2018-08-06] MEDS: HYDROCORTISONE 1% TOPICAL CREAM 30 GM TUBE TP SCH ×2 (09:49→21:15)
[2018-08-06] MEDS: METHYL SALICYLATE/MENTHOL OINT 30 GM TUBE TP SCH ×2 (09:50→21:15)
[2018-08-06] MEDS ORDERED: PT OWN MED DRAWER 7, Y5N ONE (19:58)
[2018-08-06] MEDS: traZODone HCL 50 MG TABLET (FP) PO SCH (21:15)
[2018-08-06] MEDS: THIAMINE HCL 100 MG TABLET (FP) PO SCH (21:15)
[2018-08-06] MEDS: QUEtiapine FUMARATE 100 MG TABLET (FP) PO SCH (21:15)
[2018-08-07] MEDS ORDERED: METHADONE HCL 40 MG DISPERSABLE TABLET ONE (03:21)
[2018-08-07] MEDS ORDERED: METHADONE HCL 10 MG TABLET ONE (03:21)
[2018-08-07] MEDS ORDERED: METHADONE HCL 10 MG TABLET PO SCH (06:45)
[2018-08-07] MEDS: METHADONE 80 MG, METHADONE 20 MG PO SCH (06:50)
[2018-08-07] MEDS ORDERED: PT OWN MED DRAWER 7, Y5N ONE (08:16)
[2018-08-07] MEDS: BACITRACIN 0.9 GM PACKET TP SCH (09:53)
[2018-08-07] MEDS: PRENATAL VITAMINS W/ FOLIC ACID TABLET (FP) PO SCH (09:53)
[2018-08-07] MEDS: HYDROCORTISONE 1% TOPICAL CREAM 30 GM TUBE TP SCH ×2 (09:54→21:28)
[2018-08-07] MEDS: TETRAHYDROZOLINE HCL EYE DROPS OU SCH ×2 (09:54→21:28)
[2018-08-07] MEDS: METHYL SALICYLATE/MENTHOL OINT 30 GM TUBE TP SCH ×2 (09:54→21:28)
--- NOTE | 2018-08-07 12:10 | PN ---
Psychiatric Progress Note Vital Signs: Vital Signs Period Temp Pulse Resp BP Sys/Nice Pulse Ox Last 24 Hr 97.2 F 72 18-18 96/63 Date of Session: 08/07/18 Chief Complaint:: Discharge Note HPI: Patient addressing Alcohol, Cocaine and Cannabis Dependence comorbid with Opioid Dependence on Agonist Therapy, Nicotine Dependence, Substance-Induced Mood Disorder and Substance-Induced Sleep Disorder Current Medications: Active Medications Generic Name Dose Route Start Last Admin Trade Name Freq PRN Reason Stop Dose Admin Acetaminophen 650 mg 07/25/18 15:04 Tylenol - PO Q4H PRN FEVER Al Hydroxide/Mg Hydroxide 30 ml 07/25/18 15:04 Mylanta Oral Suspension - PO Q6H PRN DYSPEPSIA Albuterol Sulfate 2 puff 07/25/18 15:07 Ventolin Hfa Inhaler - IH Q4H PRN ASTHMA Bacitracin 0.9 gm 08/04/18 12:45 08/07/18 09:53 Bacitracin - TP 0.9 gm DAILY ARLETH Administration Eucalyptus/Menthol/Phenol/Sorbitol 1 each 07/25/18 15:04 Cepastat Lozenge - MM Q4H PRN SORE THROAT Guaifenesin 10 ml 07/25/18 15:04 Robitussin Dm - PO Q6H PRN COUGH Hydrocortisone 1 applic 07/25/18 22:00 08/07/18 09:54 Hytone 1% Cream - TP Not Given BID ARLETH Hydroxyzine Pamoate 25 mg 07/25/18 15:04 Vistaril - PO Q4H PRN AGITATION Ibuprofen 400 mg 07/25/18 15:04 Motrin - PO Q6H PRN Pain Level 4-6 Loperamide HCl 4 mg 07/25/18 15:04 Imodium - PO Q6H PRN DIARRHEA Magnesium Citrate 300 ml 07/25/18 15:04 08/06/18 10:30 Citroma - PO 300 ml Q48H PRN Administration CONSTIPATION Magnesium Hydroxide 30 ml 07/25/18 15:04 08/05/18 14:27 Milk Of Magnesia - PO 30 ml DAILY PRN Administration CONSTIPATION Melatonin 5 mg 07/25/18 22:00 Melatonin PO HS PRN INSOMNIA Methadone HCl 80 mg/ Methadone 100 mg 08/07/18 07:00 08/07/18 06:50 HCl 20 mg PO 100 mg DAILY@0600 ARLETH Administration Methyl Salicylate 1 applic 07/31/18 22:00 08/07/18 09:54 Juanito-Banuelos - TP Not Given BID ARLETH Multivit/Folic Acid/Iron 1 tab 07/26/18 10:00 08/07/18 09:53 Vitamins (Sjr) - PO 1 tab DAILY ARLETH Administration Pseudoephedrine/Triprolidine 1 combo 07/25/18 15:04 Actifed - PO TID PRN NASAL CONGESTION Quetiapine Fumarate 100 mg 07/26/18 22:00 08/06/18 21:15 Seroquel - PO 100 mg HS ARLETH Administration Tetrahydrozoline HCl 1 drop 08/04/18 12:45 08/07/18 09:54 Visine - OU 1 drop BID ARLETH Administration Thiamine HCl 100 mg 07/25/18 22:00 08/06/18 21:15 Vitamin B1 - PO 100 mg HS ARLETH Administration Trazodone HCl 50 mg 07/26/18 22:00 08/06/18 21:15 Desyrel - PO 50 mg HS ARLETH Administration Current Side Effect: No Lab tests ordered: Yes Lab tests reviewed: Yes Provider note:: Patient will complete this program on 08/08/18. She has met her treatment goals and will continue to address her issues in outpatient treatment at [facility]. Told entry writer that from her participation in this program, she has learned to take it one day at a time and not to get high behind excuses. She responded well to Trazadone 50 mg po HS and Seroquel 100 mg po HS. Scripts for 30 days day supply of these medications will be electronically transmitted to [facility] at [address] [place] [address]. Sheis stable for discharge on 08/08/18 Total face to face time:: 35 Mental Status Exam - Mental Status Exam Alert and Oriented to: Time, Place, Person Cognitive Function: Fair Patient Appearance: Well Groomed Mood: Hopeful, Euthymic Affect: Appropriate Patient Behavior: Cooperative Speech Pattern: Clear Voice Loudness: Normal Thought Process: Intact, Goal Oriented Thought Disorder: Not Present Hallucinations: Denies Suicidal Ideation: Denies Homicidal Ideation: Denies Insight/Judgement: Fair Sleep: Fair Appetite: Good Muscle strength/Tone: Normal Gait/Station: Normal Psychiatric Treatment Plan - Problem List (1) Alcohol dependence Current Visit: Yes (2) Cocaine dependence Current Visit: Yes (3) Cannabis dependence Current Visit: Yes (4) Opioid dependence on agonist therapy Current Visit: Yes (5) Nicotine dependence Current Visit: Yes Qualifiers: (6) Substance induced mood disorder Current Visit: Yes (7) Substance-induced sleep disorder Current Visit: Yes Initial treatment plan: Patient will be discharged tomorrow and referred to [facility] for outpatient treatment
[2018-08-07] MEDS: traZODone HCL 50 MG TABLET (FP) PO SCH (21:28)
[2018-08-07] MEDS: QUEtiapine FUMARATE 100 MG TABLET (FP) PO SCH (21:28)
[2018-08-07] MEDS: THIAMINE HCL 100 MG TABLET (FP) PO SCH (21:28)
[2018-08-08] MEDS ORDERED: METHADONE HCL 40 MG DISPERSABLE TABLET ONE (02:48)
[2018-08-08] MEDS ORDERED: METHADONE HCL 10 MG TABLET ONE (02:48)
[2018-08-08] MEDS: METHADONE 80 MG, METHADONE 20 MG PO SCH (06:37)
[2018-08-08 07:03] VITALS: BP 113/77; PULSE 81; TEMP 98.1
== END 2018-08-08 08:57 | disposition home or self-care (01) | DRG 772 ==
LOC: YASAS 13:30 → Y3E 15:13
PROVIDERS: ADMIT Psychiatry & Neurology Psychiatry; ATTEND Psychiatry & Neurology Psychiatry
PROC: HZ42ZZZ Group Counseling for Substance Abuse Treatment, Cognitive-Behavioral (ICD-10-PCS; principal; 2018-07-25)
DX: F10.20 Alcohol dependence, uncomplicated (principal); F14.20 Cocaine dependence, uncomplicated; F12.20 Cannabis dependence, uncomplicated; F11.20 Opioid dependence, uncomplicated; F17.210 Nicotine dependence, cigarettes, uncomplicated; F19.282 Other psychoactive substance dependence with psychoactive substance-induced sleep disorder; F19.24 Other psychoactive substance dependence with psychoactive substance-induced mood disorder; G47.00 Insomnia, unspecified; R56.1 Post traumatic seizures; L25.9 Unspecified contact dermatitis, unspecified cause

== ENCOUNTER 2019-02-03 12:31 | Inpatient (IN) | payer OTHER ==
[2019-02-03 13:13] VITALS: BMI 21.9
--- NOTE | 2019-02-03 14:58 | HP ---
CIWA Score Nausea/Vomitin-No Nausea/No Vomiting Muscle Tremors: 2 Anxiety: 3 Agitation: 0-Normal Activity Paroxysmal Sweats: 2 Orientation: 0-Oriented Tacttile Disturbances: 1-Very Mild Itch/Numbness Auditory Disturbances: 0-None Visual Disturbances: 2-Mild Sensitivity Headache: 2-Mild CIWA-Ar Total Score: 12 - Admission Criteria OASAS Guidelines: Admission for Medically Managed Detox: Requires at least one of the followin. CIWA greater than 12 2. Seizures within the past 24 hours 3. Delirium tremens within the past 24 hours 4. Hallucinations within the past 24 hours 5. Acute intervention needed for co occurring medical disorder 6. Acute intervention needed for co occurring psychiatric disorder 7. Severe withdrawal that cannot be handled at a lower level of care (continued vomiting, continued diarrhea, abnormal vital signs) requiring intravenous medication and/or fluids 8. Patient presents the following: CIWA greater than 12 Admission Criteria Met: Admission criteria met Admission ROS [facility] Chief Complaint: withdrawal Allergies/Adverse Reactions: Allergies Allergy/AdvReac Type Severity Reaction Status Date / Time No Known Allergies Allergy Verified 02/03/19 12:47 History of Present Illness: Patient is a 48 yo female with hx of marijuana, cocaine and alcohol dependence is here seeking alcohol detox. Patient is linked to MMTP at [facility] on 100mg qd, last dose 02/01/19, dose pending verification. Last detox and rehab [facility] July 2018, reports four months sobriety and relapsed late October 2018. PMHX: asthma, remote hx of seizure at 16 yo, chronic back pain. Psych: Bipolar. Denies SI/HI. Exam Limitations: No Limitations - Ebola screening Have you traveled outside of the country in the last 21 days: No Have you had contact with anyone from an Ebola affected area: No - Review of Systems Constitutional: Chills, Loss of Appetite, Changes in sleep, Unintentional Wgt. Loss EENT: reports: Other (rhinorrhea) Respiratory: reports: No Symptoms reported Cardiac: reports: Palpitations GI: reports: Poor Appetite, Poor Fluid Intake : reports: No Symptoms Reported Musculoskeletal: reports: Back Pain Integumentary: reports: Dryness Neuro: reports: Headache, Dizziness Endocrine: reports: Increased Thirst Hematology: reports: Anemia Psychiatric: reports: Orientated x3, Anxious Other Systems: Reviewed and Negative Patient History - Patient Medical History Hx Anemia: Yes (NO TREATMENT) Hx Asthma: Yes (on albuterol inhaler) Hx Chronic Obstructive Pulmonary Disease (COPD): No Hx Cancer: No Hx Cardiac Disorders: No Hx Congestive Heart Failure: No Hx Hypertension: No Hx Hypercholesterolemia: No Hx Pacemaker: No HX Cerebrovascular Accident: No Hx Seizures: Yes (r/t head trauma-last apisode was at age 16) Hx Dementia: No Hx Diabetes: No Hx Gastrointestinal Disorders: No Hx Liver Disease: No Hx Genitourinary Disorders: No Hx Sexually Transmitted Disorders: No Hx Renal Disease (ESRD): No Hx Thyroid Disease: No Hx Human Immunodeficiency Virus (HIV): No (NEGATIVE HX LAST 11/16) Hx Hepatitis C: Yes (treated) Hx Depression: Yes Hx Suicide Attempt: No Hx Bipolar Disorder: Yes Hx Schizophrenia: Yes - Patient Surgical History Past Surgical History: No Hx Neurologic Surgery: No Hx Cataract Extraction: No Hx Cardiac Surgery: No Hx Lung Surgery: No Hx Breast Surgery: No Hx Breast Biopsy: No Hx Abdominal Surgery: No Hx Appendectomy: No Hx Cholecystectomy: No Hx Genitourinary Surgery: No Hx Section: No Hx Orthopedic Surgery: No Hx Hysterectomy: No Anesthesia Reaction: No - PPD History Date: 07/23/18 Results: 0 mm PPD to be Administered?: No - Reproductive History Last Menstrual Period: 05/23/17 - Smoking Cessation Smoking history: Current every day smoker Have you smoked in the past 12 months: Yes Aproximately how many cigarettes per day: 5 Cigars Per Day: 0 Hx Chewing Tobacco Use: No Initiated information on smoking cessation: Yes 'Breaking Loose' booklet given: 02/03/19 - Substance & Tx. History Hx Alcohol Use: Yes Hx Substance Use: Yes Substance Use Type: Alcohol, Cocaine, Heroin, Marijuana Hx Substance Use Treatment: Yes (Last detox and rehab [facility] July 2018) - Substances abused Alcohol Substance route: Oral Frequency: Daily Amount used: BEER-3 X 16OZ- LIQUOR- 1/2 PNT DAILY Age of first use: 20 Date of last use: 02/03/19 Heroin Substance route: Inhalation Frequency: Daily Amount used: 6BAGS Age of first use: 25 Date of last use: 02/03/19 Family Disease History - Family Disease History Family Disease History: Diabetes: Brother, CA: Mother (DECESED,CA LUNG), Other: Father (ALCOHOL,DSA,), Mother, Sister ( FIRE) Admission Physical Exam [facility] - Vital Signs Vital Signs: Vital Signs - 24 hr 02/03/19 12:40 Temperature 97.8 F Pulse Rate 75 Respiratory 18 Rate Blood Pressure 110/75 - Physical General Appearance: Yes: Appropriately Dressed, Disheveled, Thin, Sweating, Anxious HEENTM: Yes: EOMI, Hearing grossly Normal, Normal ENT Inspection, Normocephalic , Normal Voice, TEE, Pharynx Normal, Tm's normal, Other (rhinorrhea, erythematous nasal pasages) Respiratory: Yes: Chest Non-Tender, Lungs Clear, Normal Breath Sounds, No Respiratory Distress, No Accessory Muscle Use Neck: Yes: Within Normal Limits Breast: Yes: Breast Exam Deferred Cardiology: Yes: Regular Rhythm, Regular Rate Abdominal: Yes: Normal Bowel Sounds, Non Tender, Flat, Soft Genitourinary: Yes: Within Normal Limits Back: Yes: Normal Inspection Musculoskeletal: Yes: full range of Motion, Gait Steady, Pelvis Stable, Back pain Extremities: Yes: Normal Capillary Refill, Normal Inspection, Normal Range of Motion Neurological: Yes: nca certified concierge II-XII NML intact, Fully Oriented, Alert, Motor Strength 5/5, Depressed Affect Integumentary: Yes: Normal Color, Warm, Diaphoresis Lymphatic: Yes: Within Normal Limits Cleared for Admission [facility] - Detox or Rehab [facility] Level of Care: Medically Managed Detox Regimen/Protocol: Librium Breathalyzer - Breathalyzer Breathalyzer: 0 Urine Drug Screen - Test Device Lot number: [id number] Expiration date: 10/30/20 - Control Is test valid?: Yes - Results Drug screen NEGATIVE: No Urine drug screen results: THC-Marijuana, DENISA-Cocaine, FEN-Fentanyl, MOP-Opiates , MTD-Methadone Inpatient Rehab Admission - Rehab Decision to Admit Inpatient rehab admission?: No
[2019-02-03] MEDS ORDERED: MAGNESIUM CITRATE 300 ML BOTTLE PO PRN (15:02)
[2019-02-03] MEDS ORDERED: MAG HYDROX/AL HYDROX/SIMETH 30 ML UNIT-DOSE CUP PO PRN (15:02)
[2019-02-03] MEDS ORDERED: hydrOXYzine PAMOATE 25 MG CAPSULE (FP) PO PRN (15:02)
[2019-02-03] MEDS ORDERED: BISMUTH SUBSALICYLATE 262 MG/15 ML BTL PO PRN (15:02)
[2019-02-03] MEDS ORDERED: MAGNESIUM HYDROX 2400MG/30ML ORAL SUSPENSION 30 ML CUP PO PRN (15:02)
[2019-02-03] MEDS ORDERED: chlordiazePOXIDE HCL 10 MG CAPSULE PO PRN (15:02)
[2019-02-03] MEDS ORDERED: ALBUTEROL SO4 8 GM HFA INHALER IH PRN (15:02)
[2019-02-03] MEDS ORDERED: ACETAMINOPHEN 325 MG TABLET (FP) PO PRN ×2 (15:02)
[2019-02-03] MEDS ORDERED: NICOTINE POLACRILEX 2 MG GUM BUC PRN (15:02)
[2019-02-03] MEDS ORDERED: METHOCARBAMOL 500 MG TABLET PO PRN (15:02)
[2019-02-03] MEDS ORDERED: MENTHOL/PHENOL 1 EACH UD MM PRN (15:02)
[2019-02-03] MEDS ORDERED: MELATONIN 5 MG TABLETS PO PRN (15:02)
[2019-02-03] MEDS ORDERED: IBUPROFEN 400 MG TABLET (FP) PO PRN (15:02)
[2019-02-03] MEDS ORDERED: METHADONE HCL 10 MG TABLET PO ONE (15:25)
[2019-02-03] MEDS ORDERED: METHADONE 80 MG, METHADONE 20 MG PO ONE (15:35)
[2019-02-03] MEDS ORDERED: METHADONE HCL 10 MG TABLET ONE (15:44)
[2019-02-03] MEDS ORDERED: METHADONE HCL 40 MG DISPERSABLE TABLET ONE (15:44)
[2019-02-03 19:22] LABS: EPI CELLS 14.9 /HPF (0-5/HPF); HYALINE CASTS 71 /lpf (0-8); PH,URINE 5.5 (5.0-8.0); URINE APPEARANCE TURBID; URINE BACTERIA 1771.5 /hpf (NEGATIVE); URINE BILIRUBIN NEGATIVE (NEGATIVE); URINE COLOR YELLOW; URINE GLUCOSE (UA) NEGATIVE (NEGATIVE); URINE KETONE TRACE (NEGATIVE); URINE LEUK ESTERASE TRACE (NEGATIVE); URINE NITRITE NEGATIVE (NEGATIVE); URINE PROTEIN NEGATIVE (NEGATIVE); URINE RBC 2 /hpf (0-4); URINE WBC 44 /hpf (0-5)
[2019-02-03 20:19] LABS: URINE CRYSTALS AMORPH.URATES /hpf
[2019-02-03] MEDS: chlordiazePOXIDE HCL 25 MG CAPSULE PO SCH (22:25)
[2019-02-03] MEDS: VITAMINS A AND D TOPICAL OINTMENT 60 GM TUBE TP SCH (22:26)
[2019-02-03] MEDS: THIAMINE HCL 100 MG TABLET (FP) PO SCH (22:26)
[2019-02-04] MEDS ORDERED: METHADONE HCL 10 MG TABLET ONE (04:29)
[2019-02-04] MEDS ORDERED: METHADONE HCL 40 MG DISPERSABLE TABLET ONE (04:30)
[2019-02-04] MEDS: METHADONE 80 MG, METHADONE 20 MG PO SCH (05:52)
[2019-02-04] MEDS: chlordiazePOXIDE HCL 25 MG CAPSULE PO SCH ×2 (05:52→12:25)
[2019-02-04] MEDS ORDERED: METHADONE HCL 10 MG TABLET PO SCH (06:00)
[2019-02-04] MEDS ORDERED: COLLOIDAL OATMEAL 1 BAR EACH TP PRN (08:56)
[2019-02-04] MEDS: VITAMINS A AND D TOPICAL OINTMENT 60 GM TUBE TP SCH ×2 (10:07→22:35)
[2019-02-04] MEDS: PRENATAL VITAMINS W/ FOLIC ACID TABLET (FP) PO SCH (10:07)
[2019-02-04] MEDS: NICOTINE 14 MG/24 HOURS TOPICAL PATCH TD SCH (10:07)
--- NOTE | 2019-02-04 11:26 | CONSULT ---
[facility] Psychiatric Consult - Data Date of interview: 02/04/19 Admission source: [facility] Identifying data: Readmission to [facility] [place] for this 46 y/o AA female seeking detox treatment,on ,for alcohol,heroin and cocaine dependence.Patient is single,a mother of six,domiciled,unemployed and supported on SSI benefits. Substance Abuse History: Smoking history: Current every day smoker. Have you smoked in the past 12 months: Yes. Aproximately how many cigarettes per day: 5. Cigars Per Day: 0. Hx Chewing Tobacco Use: No. Initiated information on smoking cessation: Yes. 'Breaking Loose' booklet given: 02/03/19. - Substance & Tx. History. Hx Alcohol Use: Yes. Hx Substance Use: Yes. Substance Use Type : Alcohol, Cocaine, Heroin, Marijuana. Hx Substance Use Treatment: Yes (Last detox and rehab [facility] July 2018). - Substances abused. Alcohol. Substance route: Oral. Frequency: Daily. Amount used: BEER-3 X 16OZ- LIQUOR- 1 /2 PNT DAILY. Age of first use: 20. Date of last use: 02/03/19. Heroin. Substance route: Inhalation. Frequency: Daily. Amount used: 6BAGS. Age of first use: 25. Date of last use: 02/03/19 Medical History: Remarkable for hepatitis C, bronchial asthma, low back pain, anemia and a history of seizures (post head trauma at age 18). Psychiatric History: Patient admits to a history of two sychiatric hospitalizations ([facility] and another facility in [facility]). Diagnosed with MDD. Ms Pittman reports maintenance [facility]. She is also prescribed a regimen of seroquel 100 mg/hs + trazodone 50 mg/hs. Patient denies history of suicide attempts. Physical/Sexual Abuse/Trauma History: Patient denies history of abuse. Additional Comment: Urine drug screen results: THC-Marijuana, DENISA-Cocaine, FEN- Fentanyl, MOP-Opiates, MTD-Methadone. Noted. Mental Status Exam - Mental Status Exam Alert and Oriented to: Time, Place, Person Cognitive Function: Good Patient Appearance: Well Groomed Mood: Nervous, Withdrawn Affect: Mood Congruent, Constricted Patient Behavior: Fatigued, Appropriate, Cooperative Speech Pattern: Clear Voice Loudness: Normal Thought Process: Intact, Goal Oriented Thought Disorder: Not Present Hallucinations: Denies Suicidal Ideation: Denies Homicidal Ideation: Denies Insight/Judgement: Poor Sleep: Poorly, Difficulty falling asleep Muscle strength/Tone: Normal Gait/Station: Normal Psychiatric Findings - Problem List ([place] 1, 2,3) (1) Opioid dependence on agonist therapy Current Visit: Yes Status: Chronic (2) Alcohol dependence Current Visit: Yes Status: Chronic (3) Nicotine dependence Current Visit: Yes Status: Chronic Qualifiers: (4) Cannabis dependence Current Visit: Yes Status: Chronic (5) Cocaine dependence Current Visit: Yes Status: Chronic (6) Substance induced mood disorder Current Visit: Yes Status: Chronic (7) Insomnia Current Visit: Yes Status: Chronic (8) Non-compliance Current Visit: Yes Status: Chronic - Initial Treatment Plan Initial Treatment Plan: Psychoeducation. Sleep hygiene. Support. AA/NA meetings. Groups. Medications : seroquel 100 mg po hs + trazodone 50 mg po hs. Side effects/benefits of both drugs are discussed with patient. She agrees to this plan of care. Verbal consent given to MD. Cardenas.
[2019-02-04] MEDS: MINERAL OIL/PETROLAT/WATER TOPICAL CREAM 113 GM JAR TP SCH (11:48)
[2019-02-04 12:49] LABS: HEMATOCRIT 36.5 % (32.4-45.2); HEMOGLOBIN 11.5 GM/dL (10.7-15.3); MCH 27.9 pg (25.7-33.7); MCHC 31.6 g/dl (32.0-36.0); MEAN CELL VOLUME 88.4 fl (80-96); MEAN PLT VOLUME 9.4 fl (7.5-11.1); PLATELET COUNT 145 K/MM3 (134-434); RBC 4.13 M/mm3 (3.60-5.2); RDW 14.5 % (11.6-15.6); WHITE BLOOD COUNT 3.6 K/mm3 (4.0-10.0)
[2019-02-04 12:56] LABS: BILIRUBIN,TOTAL 0.2 mg/dL (0.2-1); CALCIUM 8.9 mg/dL (8.5-10.1); CREATININE 0.7 mg/dL (0.55-1.3); POTASSIUM 4.2 mmol/L (3.5-5.1); TOT PROT 6.1 g/dl (6.4-8.2)
[2019-02-04] MEDS ORDERED: TRIMETHOBENZAMIDE HCL 300 MG CAPSULE PO PRN (13:36)
--- NOTE | 2019-02-04 15:53 | PN ---
[facility] CIWA - CIWA Score Nausea/Vomitin Muscle Tremors: None Anxiety: 2 Agitation: 1-Slight > Activity Paroxysmal Sweats: No Perspiration Orientation: 2-Disoriented Date<2 days Tacttile Disturbances: 2-Mild Itch/Numbness/Burn Auditory Disturbances: 0-None Visual Disturbances: 3-Moderate Sensitivity Headache: 0-None Present CIWA-Ar Total Score: 13 S Progress Note (SOAP) Subjective: Nausea, Anxious, Sensitivity To Light, Nausea. Objective: PATIENT A & O X 2 (UNCERTAIN ABOUT CURRENT DAY / DATE). PATIENT OBSERVED AMBULATING ON UNIT UNASSISTED. IN NO ACUTE DISTRESS. 02/04/19 15:50 Vital Signs Temperature 97.8 F 02/04/19 13:31 Pulse Rate 54 L 02/04/19 13:31 Respiratory Rate 18 02/04/19 13:31 Blood Pressure 98/66 02/04/19 13:31 O2 Sat by Pulse Oximetry (%) Laboratory Tests 02/03/19 02/04/19 02/04/19 15:07 08:47 08:47 WBC 3.6 L RBC 4.13 Hgb 11.5 Hct 36.5 MCV 88.4 MCH 27.9 MCHC 31.6 L RDW 14.5 Plt Count 145 D MPV 9.4 Sodium 141 Potassium 4.2 Chloride 108 H Carbon Dioxide 29 Anion Gap 5 L BUN 9 Creatinine 0.7 Est GFR (CKD-EPI)AfAm 118.74 Est GFR (CKD-EPI)NonAf 102.45 Random Glucose 81 Calcium 8.9 Total Bilirubin 0.2 AST 12 L ALT 14 Alkaline Phosphatase 70 Total Protein 6.1 L Albumin 3.0 L Urine Color Yellow Urine Appearance Turbid Urine pH 5.5 Ur Specific [place] 1.027 Urine Protein Negative Urine Glucose (UA) Negative Urine Ketones Trace H Urine Blood Negative Urine Nitrite Negative Urine Bilirubin Negative Urine Urobilinogen 1.0 Ur Leukocyte Esterase Trace Urine WBC (Auto) 44 Urine RBC (Auto) 2 Urine Casts (Auto) 71 U Pathogenic Cast Auto None U Epithel Cells (Auto) 14.9 Urine Crystals (Auto) Amorph.urates Urine Bacteria (Auto) 1771.5 LABS NOTED. RPR RESULT PENDING. 02/04/19 15:51 Assessment: 02/04/19 15:51 WITHDRAWAL SYMPTOMS. LEUKOPENIA. Plan: CONTINUE DETOX. INCREASE DAILY PO FLUID / WATER INTAKE. REPEAT UA FOR ADMISSION ABNORMALITIES. PRN TIGAN IM FOR NAUSEA.
[2019-02-04] MEDS: QUEtiapine FUMARATE 100 MG TABLET (FP) PO SCH (22:35)
[2019-02-04] MEDS: THIAMINE HCL 100 MG TABLET (FP) PO SCH (22:35)
[2019-02-04] MEDS: traZODone HCL 50 MG TABLET (FP) PO SCH (22:35)
[2019-02-04] MEDS: chlordiazePOXIDE 5 MG CAPSULE PO SCH (22:35)
[2019-02-04 22:56] LABS: PH,URINE 5.5 (5.0-8.0); URINE APPEARANCE CLOUDY; URINE BILIRUBIN NEGATIVE (NEGATIVE); URINE COLOR YELLOW; URINE GLUCOSE (UA) NEGATIVE (NEGATIVE); URINE KETONE TRACE (NEGATIVE); URINE LEUK ESTERASE NEGATIVE (NEGATIVE); URINE NITRITE NEGATIVE (NEGATIVE); URINE PROTEIN NEGATIVE (NEGATIVE); URINE UROBILINOGEN 0.2 mg/dL (0.2-1.0)
[2019-02-05] MEDS ORDERED: METHADONE HCL 10 MG TABLET ONE (04:46)
[2019-02-05] MEDS ORDERED: METHADONE HCL 40 MG DISPERSABLE TABLET ONE (04:46)
[2019-02-05] MEDS: chlordiazePOXIDE 5 MG CAPSULE PO SCH ×2 (05:18→14:12)
[2019-02-05] MEDS: METHADONE 80 MG, METHADONE 20 MG PO SCH (05:19)
[2019-02-05] MEDS: PRENATAL VITAMINS W/ FOLIC ACID TABLET (FP) PO SCH (10:31)
[2019-02-05] MEDS: VITAMINS A AND D TOPICAL OINTMENT 60 GM TUBE TP SCH ×2 (10:31→22:24)
[2019-02-05] MEDS: NICOTINE 14 MG/24 HOURS TOPICAL PATCH TD SCH (10:32)
[2019-02-05] MEDS: MINERAL OIL/PETROLAT/WATER TOPICAL CREAM 113 GM JAR TP SCH (10:32)
[2019-02-05] MEDS ORDERED: P-EPHED 60MG/TRIPROLIDI 2.5MG TABLET PO PRN (14:57)
[2019-02-05] MEDS ORDERED: SODIUM CHLORIDE NASAL SPRAY 44 ML BOTTLE NS PRN (14:58)
--- NOTE | 2019-02-05 17:05 | PN ---
S CIWA - CIWA Score Nausea/Vomitin Muscle Tremors: None Anxiety: 2 Agitation: 1-Slight > Activity Paroxysmal Sweats: No Perspiration Orientation: 0-Oriented Tacttile Disturbances: 1-Very Mild Itch/Numbness Auditory Disturbances: 0-None Visual Disturbances: 1-Very Mild Sensitivity Headache: 0-None Present CIWA-Ar Total Score: 8 BHS Progress Note (SOAP) Subjective: Nausea, Constipation, Nasal Congestion. Objective: PATIENT A & O X 3, OBSERVED AMBULATING ON UNIT UNASSISTED. IN NO ACUTE DISTRESS. 02/05/19 17:04 Vital Signs Temperature 98.1 F 02/05/19 14:03 Pulse Rate 57 L 02/05/19 14:03 Respiratory Rate 16 02/05/19 14:03 Blood Pressure 94/68 02/05/19 14:03 O2 Sat by Pulse Oximetry (%) Laboratory Tests 02/03/19 02/04/19 02/04/19 15:07 08:47 08:47 WBC 3.6 L RBC 4.13 Hgb 11.5 Hct 36.5 MCV 88.4 MCH 27.9 MCHC 31.6 L RDW 14.5 Plt Count 145 D MPV 9.4 Sodium 141 Potassium 4.2 Chloride 108 H Carbon Dioxide 29 Anion Gap 5 L BUN 9 Creatinine 0.7 Est GFR (CKD-EPI)AfAm 118.74 Est GFR (CKD-EPI)NonAf 102.45 Random Glucose 81 Calcium 8.9 Total Bilirubin 0.2 AST 12 L ALT 14 Alkaline Phosphatase 70 Total Protein 6.1 L Albumin 3.0 L Urine Color Yellow Urine Appearance Turbid Urine pH 5.5 Ur Specific [place] 1.027 Urine Protein Negative Urine Glucose (UA) Negative Urine Ketones Trace H Urine Blood Negative Urine Nitrite Negative Urine Bilirubin Negative Urine Urobilinogen 1.0 Ur Leukocyte Esterase Trace Urine WBC (Auto) 44 Urine RBC (Auto) 2 Urine Casts (Auto) 71 U Pathogenic Cast Auto None U Epithel Cells (Auto) 14.9 Urine Crystals (Auto) Amorph.urates Urine Bacteria (Auto) 1771.5 RPR Titer 02/04/19 02/04/19 08:47 22:50 WBC RBC Hgb Hct MCV MCH MCHC RDW Plt Count MPV Sodium Potassium Chloride Carbon Dioxide Anion Gap BUN Creatinine Est GFR (CKD-EPI)AfAm Est GFR (CKD-EPI)NonAf Random Glucose Calcium Total Bilirubin AST ALT Alkaline Phosphatase Total Protein Albumin Urine Color Yellow Urine Appearance Cloudy Urine pH 5.5 Ur Specific [place] 1.024 Urine Protein Negative Urine Glucose (UA) Negative Urine Ketones Trace H Urine Blood Negative Urine Nitrite Negative Urine Bilirubin Negative Urine Urobilinogen 0.2 Ur Leukocyte Esterase Negative Urine WBC (Auto) Urine RBC (Auto) Urine Casts (Auto) U Pathogenic Cast Auto U Epithel Cells (Auto) Urine Crystals (Auto) Urine Bacteria (Auto) RPR Titer Nonreactive LABS NOTED. RESULTS OF REPEAT UA NOTED. 02/05/19 17:04 Assessment: 02/05/19 17:04 WITHDRAWAL SYMPTOMS. LEUKOPENIA. 02/05/19 17:05 Plan: CONTINUE DETOX. INCREASE DAILY PO FLUID / WATER INTAKE. PRN SEA SALT NASAL SPRAY, PRN ACTIFED PO FOR NASAL CONGESTION.
[2019-02-05] MEDS ORDERED: chlordiazePOXIDE HCL 10 MG CAPSULE PO PRN (21:00)
[2019-02-05] MEDS: QUEtiapine FUMARATE 100 MG TABLET (FP) PO SCH (22:21)
[2019-02-05] MEDS: THIAMINE HCL 100 MG TABLET (FP) PO SCH (22:21)
[2019-02-05] MEDS: traZODone HCL 50 MG TABLET (FP) PO SCH (22:22)
[2019-02-05] MEDS: chlordiazePOXIDE HCL 10 MG CAPSULE PO SCH (22:22)
[2019-02-06] MEDS ORDERED: METHADONE HCL 10 MG TABLET ONE (04:39)
[2019-02-06] MEDS ORDERED: METHADONE HCL 40 MG DISPERSABLE TABLET ONE (04:39)
[2019-02-06] MEDS: chlordiazePOXIDE HCL 10 MG CAPSULE PO SCH ×2 (05:29→15:12)
[2019-02-06] MEDS: METHADONE 80 MG, METHADONE 20 MG PO SCH (05:29)
[2019-02-06] MEDS: VITAMINS A AND D TOPICAL OINTMENT 60 GM TUBE TP SCH (10:37)
[2019-02-06] MEDS: MINERAL OIL/PETROLAT/WATER TOPICAL CREAM 113 GM JAR TP SCH (10:37)
[2019-02-06] MEDS: PRENATAL VITAMINS W/ FOLIC ACID TABLET (FP) PO SCH (10:37)
[2019-02-06] MEDS: NICOTINE 14 MG/24 HOURS TOPICAL PATCH TD SCH (10:37)
[2019-02-06 13:14] VITALS: BP 96/72; PULSE 73; TEMP 97.5
--- NOTE | 2019-02-06 17:04 | DS ---
[facility] Detox Discharge Summary Admission Date: 02/03/19 Discharge Date: 02/06/19 - History Present History: Alcohol Dependence, Opioid Dependence, MMTP Additional Comments: PATIENT GOING TO [facility] ([facility]) FOR AFTERCARE. PATIENT WAS DISCHARGED FROM DETOX UNIT TO BE TAKEN OVER TO REHAB UNIT IN STABLE MEDICAL CONDITION. Pertinent Past History: Asthma, History Of Seizure (age 16, Related To Head Trauma), Anemia, Chronic Back Pain, Bipolar Disorder, Hep C, Depression, Schizophrenia, Leukopenia ( Noted While Admitted For Detox), Insomnia. - Physical Exam Results Vital Signs: Vital Signs Temperature 97.5 F L 02/06/19 13:12 Pulse Rate 73 02/06/19 13:12 Respiratory Rate 18 02/06/19 13:12 Blood Pressure 96/72 02/06/19 13:12 O2 Sat by Pulse Oximetry (%) Pertinent Admission Physical Exam Findings: WITHDRAWAL SYMPTOMS. Laboratory Tests 02/03/19 02/04/19 02/04/19 15:07 08:47 08:47 WBC 3.6 L RBC 4.13 Hgb 11.5 Hct 36.5 MCV 88.4 MCH 27.9 MCHC 31.6 L RDW 14.5 Plt Count 145 D MPV 9.4 Sodium 141 Potassium 4.2 Chloride 108 H Carbon Dioxide 29 Anion Gap 5 L BUN 9 Creatinine 0.7 Est GFR (CKD-EPI)AfAm 118.74 Est GFR (CKD-EPI)NonAf 102.45 Random Glucose 81 Calcium 8.9 Total Bilirubin 0.2 AST 12 L ALT 14 Alkaline Phosphatase 70 Total Protein 6.1 L Albumin 3.0 L Urine Color Yellow Urine Appearance Turbid Urine pH 5.5 Ur Specific [place] 1.027 Urine Protein Negative Urine Glucose (UA) Negative Urine Ketones Trace H Urine Blood Negative Urine Nitrite Negative Urine Bilirubin Negative Urine Urobilinogen 1.0 Ur Leukocyte Esterase Trace Urine WBC (Auto) 44 Urine RBC (Auto) 2 Urine Casts (Auto) 71 U Pathogenic Cast Auto None U Epithel Cells (Auto) 14.9 Urine Crystals (Auto) Amorph.urates Urine Bacteria (Auto) 1771.5 RPR Titer 02/04/19 02/04/19 08:47 22:50 WBC RBC Hgb Hct MCV MCH MCHC RDW Plt Count MPV Sodium Potassium Chloride Carbon Dioxide Anion Gap BUN Creatinine Est GFR (CKD-EPI)AfAm Est GFR (CKD-EPI)NonAf Random Glucose Calcium Total Bilirubin AST ALT Alkaline Phosphatase Total Protein Albumin Urine Color Yellow Urine Appearance Cloudy Urine pH 5.5 Ur Specific [place] 1.024 Urine Protein Negative Urine Glucose (UA) Negative Urine Ketones Trace H Urine Blood Negative Urine Nitrite Negative Urine Bilirubin Negative Urine Urobilinogen 0.2 Ur Leukocyte Esterase Negative Urine WBC (Auto) Urine RBC (Auto) Urine Casts (Auto) U Pathogenic Cast Auto U Epithel Cells (Auto) Urine Crystals (Auto) Urine Bacteria (Auto) RPR Titer Nonreactive LABS NOTED. - Treatment Hospital Course: Detox Protocol Followed, Detoxed Safely, Responded well, Discharged Condition Good, Rehab Referral Accepted Patient has Accepted a Rehab Referral to: [facility] ([place], [place]). - Medication Discharge Medications: Ambulatory Orders Albuterol Sulfate Inhaler - [Ventolin HFA Inhaler -] 2 puff IH Q4H PRN #1 inhaler 08/07/18 - Diagnosis (1) Alcohol dependence with uncomplicated withdrawal Current Visit: Yes Status: Acute (2) Nicotine dependence Current Visit: Yes Status: Chronic Qualifiers: Nicotine product type: cigarettes Substance use status: uncomplicated Qualified Code(s): F17.210 - Nicotine dependence, cigarettes, uncomplicated (3) Opioid dependence on agonist therapy Current Visit: Yes Status: Chronic (4) Leukopenia Current Visit: Yes Status: Acute Qualifiers: Leukopenia type: unspecified Qualified Code(s): D72.819 - Decreased white blood cell count, unspecified (5) Cannabis dependence Current Visit: Yes Status: Chronic (6) Cocaine dependence Current Visit: Yes Status: Chronic Qualifiers: Substance use status: in withdrawal Qualified Code(s): F14.23 - Cocaine dependence with withdrawal (7) Insomnia Current Visit: Yes Status: Chronic Qualifiers: Insomnia type: unspecified Qualified Code(s): G47.00 - Insomnia, unspecified (8) Non-compliance Current Visit: Yes Status: Chronic (9) Substance induced mood disorder Current Visit: Yes Status: Chronic - AMA Did Patient Leave Against Medical Advice: No
== END 2019-02-06 17:32 | disposition home or self-care (01) | DRG 773 ==
LOC: YASAS 12:31 → Y3N 15:11
PROVIDERS: ADMIT Surgery; ATTEND Surgery
PROC: HZ2ZZZZ Detoxification Services for Substance Abuse Treatment (ICD-10-PCS; principal; 2019-02-03)
DX: F10.230 Alcohol dependence with withdrawal, uncomplicated (principal); F11.20 Opioid dependence, uncomplicated; F14.20 Cocaine dependence, uncomplicated; F12.20 Cannabis dependence, uncomplicated; F17.210 Nicotine dependence, cigarettes, uncomplicated; F19.24 Other psychoactive substance dependence with psychoactive substance-induced mood disorder; D72.818 Other decreased white blood cell count; G47.00 Insomnia, unspecified; J45.909 Unspecified asthma, uncomplicated; Z86.19 Personal history of other infectious and parasitic diseases; Z86.69 Personal history of other diseases of the nervous system and sense organs; Z91.19 Patient's noncompliance with other medical treatment and regimen
CPT/HCPCS: 36415; 80053; 81003; 85027; 86593

== ENCOUNTER 2019-02-06 17:35 | Inpatient (IN) | payer OTHER | END 2019-02-19 09:12 | disposition home or self-care (01) | LOC: YASAS 17:35 → Y3E 17:36 ==

== ENCOUNTER 2019-05-05 14:56 | Inpatient (IN) | payer OTHER ==
[2019-05-05 20:33] VITALS: BMI 22.1
--- NOTE | 2019-05-05 22:28 | HP ---
CIWA Score Nausea/Vomitin-No Nausea/No Vomiting Muscle Tremors: 4-Moderate,w/Arms Extend Anxiety: 4-Mod. Anxious/Guarded Agitation: 4-Moderately Restless Paroxysmal Sweats: 3 Orientation: 0-Oriented Tacttile Disturbances: 0-None Auditory Disturbances: 0-None Visual Disturbances: 0-None Headache: 0-None Present CIWA-Ar Total Score: 15 - Admission Criteria OAS Guidelines: Admission for Medically Managed Detox: Requires at least one of the followin. CIWA greater than 12 2. Seizures within the past 24 hours 3. Delirium tremens within the past 24 hours 4. Hallucinations within the past 24 hours 5. Acute intervention needed for co occurring medical disorder 6. Acute intervention needed for co occurring psychiatric disorder 7. Severe withdrawal that cannot be handled at a lower level of care (continued vomiting, continued diarrhea, abnormal vital signs) requiring intravenous medication and/or fluids 8. Patient presents the following: CIWA greater than 12 Admission Criteria Met: Admission criteria met Admission ROS [facility] Chief Complaint: C/O WITHDRAWAL SX'S. SEEKING DETOX Allergies/Adverse Reactions: Allergies Allergy/AdvReac Type Severity Reaction Status Date / Time No Known Allergies Allergy Verified 05/05/19 20:23 History of Present Illness: 48 Y.O. FEMALE WITH HX/O ALCOHOLISM HERE FOR DETOX. SHE IS SELF REFERRED. 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 LAST DRINK THIS MORNING TO HELP WITH THE SHAKES. REPORTS MOST RECENT CLEAN TIME 2 MONTHS AGO X 1 MONTH, + HX/O SEIZURES- LAST BEING 18 Y.O. CLIENT IS ALSO ON MMTP AT [facility] REPORT LDM 100 MG 3 DAYS AGO. PENDING VERIFICATION. SHE ALSO ABUSES HEROIN, COCAINE, OXY. DENIES HX/O DRUG OVERDOSE. LIVES IN [place], UNEMPLOYED, DENIES LEGALS Exam Limitations: No Limitations - Ebola screening Have you traveled outside of the country in the last 21 days: No (N) Have you had contact with anyone from an Ebola affected area: No Do you have a fever: No - Review of Systems Constitutional: Chills, Malaise, Night Sweats, Changes in sleep EENT: reports: Dental Problems (MISSING TEETH) Respiratory: reports: No Symptoms reported Cardiac: reports: No Symptoms Reported GI: reports: Nausea, Poor Fluid Intake : reports: No Symptoms Reported Musculoskeletal: reports: Back Pain Integumentary: reports: No Symptoms Reported Neuro: reports: Headache, Seizure (LAST AGE 18 NOT RELATED TO DRUGS), Tremors, Dizziness (INTERMITTENT) Endocrine: reports: No Symptoms Reported Hematology: reports: No Symptoms Reported Psychiatric: reports: Orientated x3, Agitated (IRRITABLE), Anxious, Depressed ( DENIES SI) Other Systems: Reviewed and Negative Patient History - Patient Medical History Hx Anemia: Yes (NO TREATMENT) Hx Asthma: Yes Hx Chronic Obstructive Pulmonary Disease (COPD): No Hx Cancer: No Hx Cardiac Disorders: No Hx Congestive Heart Failure: No Hx Hypertension: No Hx Hypercholesterolemia: No Hx Pacemaker: No HX Cerebrovascular Accident: No Hx Seizures: Yes (1988) Hx Dementia: No Hx Diabetes: No Hx Gastrointestinal Disorders: No Hx Liver Disease: No Hx Genitourinary Disorders: No Hx Sexually Transmitted Disorders: No Hx Renal Disease (ESRD): No Hx Thyroid Disease: No Hx Human Immunodeficiency Virus (HIV): No (NEGATIVE HX LAST 11/16) Hx Hepatitis C: Yes (treated) Hx Depression: Yes Hx Suicide Attempt: No Hx Bipolar Disorder: Yes Hx Schizophrenia: Yes Other Medical History: DENIES - Patient Surgical History Past Surgical History: No Hx Neurologic Surgery: No Hx Cataract Extraction: No Hx Cardiac Surgery: No Hx Lung Surgery: No Hx Breast Surgery: No Hx Breast Biopsy: No Hx Abdominal Surgery: No Hx Appendectomy: No Hx Cholecystectomy: No Hx Genitourinary Surgery: No Hx Section: No Hx Orthopedic Surgery: No Hx Hysterectomy: No Anesthesia Reaction: No - PPD History Previous Implant?: Yes Documented Results: Negative w/proof Implanted On Prior [facility] Admission?: Yes Date: 07/23/18 Results: 0 mm PPD to be Administered?: No - Reproductive History Patient is a Female of Child Bearing Age (11 -55 yrs old): Yes Last Menstrual Period: 05/23/17 LMP comment: IRREG Patient : No (NEG [facility] [place]) - Smoking Cessation Smoking history: Current every day smoker Have you smoked in the past 12 months: Yes Aproximately how many cigarettes per day: 5 Cigars Per Day: 0 Hx Chewing Tobacco Use: No Initiated information on smoking cessation: Yes 'Breaking Loose' booklet given: 05/05/19 - Substance & Tx. History Hx Alcohol Use: Yes Hx Substance Use: Yes Substance Use Type: Alcohol, Cocaine, Heroin, Opiates (OXY), Prescribed ( METHADONE) - Substances abused Alcohol Substance route: Oral Frequency: Daily Amount used: BEER-3 X 16OZ- LIQUOR- 1/2 PNT DAILY Age of first use: 20 Date of last use: 05/05/19 Heroin Substance route: Inhalation Frequency: Daily Amount used: 5 BAGS Age of first use: 25 Date of last use: 05/04/19 Family Disease History - Family Disease History Family Disease History: Diabetes: Brother, CA: Mother (DECESED,CA LUNG), Other: Father (ALCOHOL,DSA,), Mother, Sister ( FIRE) Admission Physical Exam S - Vital Signs Vital Signs: Vital Signs - 24 hr 05/05/19 05/05/19 20:25 21:33 Temperature 98.2 F 98.2 F Pulse Rate 79 79 Respiratory 16 16 Rate Blood Pressure 117/72 117/72 - Physical General Appearance: Yes: Tremorous, Anxious HEENTM: Yes: EOMI, Normal ENT Inspection, Normocephalic, Normal Voice, TEE, Pharynx Normal, Other (MISSING TEETH) Respiratory: Yes: Chest Non-Tender, Lungs Clear, Normal Breath Sounds, No Respiratory Distress, No Accessory Muscle Use Neck: Yes: No masses,lesions,Nodules, Supple, Trachea in good position Breast: Yes: Breast Exam Deferred Cardiology: Yes: Regular Rhythm, Regular Rate, S1, S2 Abdominal: Yes: Non Tender, Soft, Increased Bowel Sounds Genitourinary: Yes: Within Normal Limits (NO C/O OFFERED) Back: Yes: Normal Inspection Musculoskeletal: Yes: full range of Motion, Gait Steady Extremities: Yes: Normal Capillary Refill, Normal Range of Motion, Non-Tender, Tremors, Other (UNKEPT FINGER NAILS (SOILED)) Neurological: Yes: Fully Oriented, Alert, Motor Strength 5/5, Depressed Affect Integumentary: Yes: Dry, Cold Lymphatic: Yes: Within Normal Limits - Diagnostic (1) Living in [facility] Current Visit: Yes Status: Suspected Comment: REPORTED (2) Alcohol dependence with uncomplicated withdrawal Current Visit: Yes Status: Acute (3) Substance-induced sleep disorder Current Visit: Yes Status: Suspected (4) Asthma Current Visit: Yes Status: Chronic Qualifiers: Asthma severity: mild Asthma persistence: intermittent Asthma complication type: unspecified Qualified Code(s): J45.20 - Mild intermittent asthma, uncomplicated (5) Cannabis dependence Current Visit: Yes Status: Chronic (6) Cocaine dependence, uncomplicated Current Visit: Yes Status: Chronic (7) Methadone maintenance therapy patient Current Visit: Yes Status: Chronic Comment: 60 mg verificaiton pending (8) Mood disorder Current Visit: Yes Status: Chronic (9) Nicotine dependence Current Visit: Yes Status: Chronic Qualifiers: Nicotine product type: cigarettes Substance use status: uncomplicated Qualified Code(s): F17.210 - Nicotine dependence, cigarettes, uncomplicated (10) Non-compliance Current Visit: Yes Status: Suspected (11) Anxiety and depression Current Visit: Yes Status: Suspected (12) Depression (emotion) Current Visit: No Status: Suspected Qualifiers: Depression Type: dysthymia Qualified Code(s): F34.1 - Dysthymic disorder Cleared for Admission S - Detox or Rehab [facility] Level of Care: Medically Managed Detox Regimen/Protocol: Librium Claeared for Rehab Admission: No Breathalyzer - Breathalyzer Breathalyzer: 0 Urine Drug Screen - Test Device Lot number: [id number] Expiration date: 01/30/21 - Control Is test valid?: Yes - Results Drug screen NEGATIVE: No Urine drug screen results: DENISA-Cocaine, FEN-Fentanyl, MOP-Opiates, OXY-Oxycodone , MTD-Methadone Inpatient Rehab Admission - Rehab Decision to Admit Inpatient rehab admission?: No
[2019-05-05] MEDS ORDERED: ALBUTEROL SO4 8 GM HFA INHALER IH PRN (22:35)
[2019-05-05] MEDS ORDERED: MENTHOL/PHENOL 1 EACH UD MM PRN (22:35)
[2019-05-05] MEDS ORDERED: MAGNESIUM CITRATE 300 ML BOTTLE PO PRN (22:35)
[2019-05-05] MEDS ORDERED: hydrOXYzine PAMOATE 25 MG CAPSULE (FP) PO PRN (22:35)
[2019-05-05] MEDS ORDERED: IBUPROFEN 400 MG TABLET (FP) PO PRN (22:35)
[2019-05-05] MEDS ORDERED: chlordiazePOXIDE HCL 25 MG CAPSULE PO PRN (22:35)
[2019-05-05] MEDS ORDERED: MELATONIN 5 MG TABLETS PO PRN (22:35)
[2019-05-05] MEDS ORDERED: BISMUTH SUBSALICYLATE 524 MG/30 ML UD PO PRN (22:35)
[2019-05-05] MEDS ORDERED: ONDANSETRON *ODT* 4 MG TABLET SL PRN (22:35)
[2019-05-05] MEDS ORDERED: MAGNESIUM HYDROX 2400MG/30ML ORAL SUSPENSION 30 ML CUP PO PRN (22:35)
[2019-05-05] MEDS ORDERED: ACETAMINOPHEN 325 MG TABLET (FP) PO PRN ×2 (22:35)
[2019-05-05] MEDS ORDERED: MAG HYDROX/AL HYDROX/SIMETH 30 ML UNIT-DOSE CUP PO PRN (22:35)
[2019-05-05] MEDS ORDERED: METHOCARBAMOL 500 MG TABLET PO PRN (22:35)
[2019-05-05] MEDS ORDERED: NICOTINE POLACRILEX 2 MG GUM BUC PRN (22:35)
[2019-05-05] MEDS: chlordiazePOXIDE HCL 25 MG CAPSULE PO SCH (23:52)
[2019-05-06] MEDS: chlordiazePOXIDE HCL 25 MG CAPSULE PO SCH ×4 (05:21→22:11)
[2019-05-06] MEDS ORDERED: METHADONE HCL 10 MG TABLET PO ONE (10:00)
[2019-05-06] MEDS ORDERED: METHADONE 80 MG, METHADONE 20 MG PO ONE (10:10)
[2019-05-06] MEDS ORDERED: METHADONE HCL 40 MG DISPERSABLE TABLET ONE (10:15)
[2019-05-06] MEDS ORDERED: METHADONE HCL 10 MG TABLET ONE (10:15)
[2019-05-06] MEDS: NICOTINE 14 MG/24 HOURS TOPICAL PATCH TD SCH (10:44)
[2019-05-06] MEDS: PRENATAL VITAMINS W/ FOLIC ACID TABLET (FP) PO SCH (10:44)
--- NOTE | 2019-05-06 11:53 | PN ---
S CIWA - CIWA Score Nausea/Vomitin Muscle Tremors: 2 Anxiety: 2 Agitation: 3 Paroxysmal Sweats: 1-Minimal Palms Moist Orientation: 0-Oriented Tacttile Disturbances: 0-None Auditory Disturbances: 0-None Visual Disturbances: 0-None Headache: 2-Mild CIWA-Ar Total Score: 12 BHS Progress Note (SOAP) Subjective: alert,irritable,anxious,interrupted sleep,tremor Objective: 05/06/19 11:52 Vital Signs Temperature 97.5 F L 05/06/19 09:14 Pulse Rate 57 L 05/06/19 09:14 Respiratory Rate 18 05/06/19 09:14 Blood Pressure 125/72 05/06/19 09:14 O2 Sat by Pulse Oximetry (%) 05/06/19 11:52 labs pending Assessment: 05/06/19 11:52 withdrawal symptom Plan: continue detox librium regimen
[2019-05-06 12:24] LABS: HEMATOCRIT 37.6 % (32.4-45.2); HEMOGLOBIN 12.2 GM/dL (10.7-15.3); MCHC 32.4 g/dl (32.0-36.0); MEAN CELL VOLUME 86.2 fl (80-96); MEAN PLT VOLUME 9.1 fl (7.5-11.1); PLATELET COUNT 194 K/MM3 (134-434); RBC 4.37 M/mm3 (3.60-5.2); RDW 14.2 % (11.6-15.6)
[2019-05-06 12:34] LABS: BILIRUBIN,TOTAL 0.3 mg/dL (0.2-1); CREATININE 0.5 mg/dL (0.55-1.3); POTASSIUM 3.9 mmol/L (3.5-5.1); TOT PROT 6.1 g/dl (6.4-8.2)
--- NOTE | 2019-05-06 12:34 | CONSULT ---
[facility] Psychiatric Consult - Data Date of interview: 05/06/19 Admission source: [facility] Identifying data: Approached for psychiatric evaluation. Patient declines.
[2019-05-06] MEDS: THIAMINE HCL 100 MG TABLET (FP) PO SCH (22:10)
[2019-05-07] MEDS ORDERED: METHADONE HCL 10 MG TABLET ONE (04:04)
[2019-05-07] MEDS ORDERED: METHADONE HCL 40 MG DISPERSABLE TABLET ONE (04:05)
[2019-05-07] MEDS: METHADONE 80 MG, METHADONE 20 MG PO SCH (05:54)
[2019-05-07] MEDS ORDERED: METHADONE HCL 10 MG TABLET PO SCH (06:00)
[2019-05-07] MEDS: chlordiazePOXIDE HCL 25 MG CAPSULE PO SCH ×4 (06:39→22:06)
[2019-05-07] MEDS: PRENATAL VITAMINS W/ FOLIC ACID TABLET (FP) PO SCH (10:37)
[2019-05-07] MEDS: NICOTINE 14 MG/24 HOURS TOPICAL PATCH TD SCH (10:38)
[2019-05-07] MEDS ORDERED: COLLOIDAL OATMEAL 1 BAR EACH TP PRN (11:56)
--- NOTE | 2019-05-07 12:02 | PN ---
S CIWA - CIWA Score Nausea/Vomitin Muscle Tremors: 2 Anxiety: 2 Agitation: 2 Paroxysmal Sweats: 1-Minimal Palms Moist Orientation: 0-Oriented Tacttile Disturbances: 0-None Auditory Disturbances: 0-None Visual Disturbances: 0-None Headache: 1-Very Mild CIWA-Ar Total Score: 10 S Progress Note (SOAP) Subjective: alert,irritable,anxious,interrupted sleep,tremor,poor appetite Objective: 05/07/19 12:00 Vital Signs Temperature 98.1 F 05/07/19 09:40 Pulse Rate 64 05/07/19 09:40 Respiratory Rate 18 05/07/19 09:40 Blood Pressure 137/76 05/07/19 09:40 O2 Sat by Pulse Oximetry (%) 05/07/19 12:00 Laboratory Last Values WBC 4.0 K/mm3 (4.0-10.0) 05/06/19 08:30 RBC 4.37 M/mm3 (3.60-5.2) 05/06/19 08:30 Hgb 12.2 GM/dL (10.7-15.3) 05/06/19 08:30 Hct 37.6 % (32.4-45.2) 05/06/19 08:30 MCV 86.2 fl (80-96) 05/06/19 08:30 MCH 28.0 pg (25.7-33.7) 05/06/19 08:30 MCHC 32.4 g/dl (32.0-36.0) 05/06/19 08:30 RDW 14.2 % (11.6-15.6) 05/06/19 08:30 Plt Count 194 K/MM3 (134-434) D 05/06/19 08:30 MPV 9.1 fl (7.5-11.1) 05/06/19 08:30 Sodium 141 mmol/L (136-145) 05/06/19 08:30 Potassium 3.9 mmol/L (3.5-5.1) 05/06/19 08:30 Chloride 106 mmol/L (98-107) 05/06/19 08:30 Carbon Dioxide 31 mmol/L (21-32) 05/06/19 08:30 Anion Gap 4 MMOL/L (8-16) L 05/06/19 08:30 BUN 11.0 mg/dL (7-18) 05/06/19 08:30 Creatinine 0.5 mg/dL (0.55-1.3) L 05/06/19 08:30 Est GFR (CKD-EPI)AfAm 132.65 05/06/19 08:30 Est GFR (CKD-EPI)NonAf 114.45 05/06/19 08:30 Random Glucose 81 mg/dL (74-106) 05/06/19 08:30 Calcium 9.0 mg/dL (8.5-10.1) 05/06/19 08:30 Total Bilirubin 0.3 mg/dL (0.2-1) 05/06/19 08:30 AST 16 U/L (15-37) 05/06/19 08:30 ALT 15 U/L (13-61) 05/06/19 08:30 Alkaline Phosphatase 75 U/L (45-117) 05/06/19 08:30 Total Protein 6.1 g/dl (6.4-8.2) L 05/06/19 08:30 Albumin 3.0 g/dl (3.4-5.0) L 05/06/19 08:30 POC Urine HCG, Qual Negative 05/05/19 21:35 Assessment: 05/07/19 12:00 withdrawal symptom Plan: continue detox,librium regimen,psychiatric evaluation for bipolar disorder, aveeno soap,
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
[2019-05-07] MEDS ORDERED: QUEtiapine FUMARATE 100 MG TABLET (FP) PO SCH (22:00)
[2019-05-07] MEDS: THIAMINE HCL 100 MG TABLET (FP) PO SCH (22:05)
[2019-05-07] MEDS: traZODone HCL 50 MG TABLET (FP) PO SCH (22:05)
[2019-05-08] MEDS ORDERED: chlordiazePOXIDE HCL 10 MG CAPSULE PO PRN
[2019-05-08] MEDS ORDERED: METHADONE HCL 40 MG DISPERSABLE TABLET ONE (04:45)
[2019-05-08] MEDS ORDERED: METHADONE HCL 10 MG TABLET ONE (04:45)
[2019-05-08] MEDS: chlordiazePOXIDE HCL 10 MG CAPSULE PO SCH ×4 (05:22→22:23)
[2019-05-08] MEDS: METHADONE 80 MG, METHADONE 20 MG PO SCH (05:22)
[2019-05-08] MEDS: PRENATAL VITAMINS W/ FOLIC ACID TABLET (FP) PO SCH (10:30)
[2019-05-08] MEDS: NICOTINE 14 MG/24 HOURS TOPICAL PATCH TD SCH (10:31)
--- NOTE | 2019-05-08 13:47 | PN ---
S CIWA - CIWA Score Nausea/Vomitin-Mild Nausea/No Vomiting Muscle Tremors: 1-None Visible, but [place] Anxiety: 3 Agitation: 2 Paroxysmal Sweats: No Perspiration Orientation: 0-Oriented Tacttile Disturbances: 1-Very Mild Itch/Numbness Auditory Disturbances: 0-None Visual Disturbances: 0-None Headache: 1-Very Mild CIWA-Ar Total Score: 9 BHS Progress Note (SOAP) Subjective: alert,irritable,anxious,interrupted sleep,pain in the body Objective: 05/08/19 13:46 Vital Signs Temperature 97.2 F L 05/08/19 09:11 Pulse Rate 61 05/08/19 09:11 Respiratory Rate 18 05/08/19 09:11 Blood Pressure 110/68 05/08/19 09:11 O2 Sat by Pulse Oximetry (%) Laboratory Last Values WBC 4.0 K/mm3 (4.0-10.0) 05/06/19 08:30 RBC 4.37 M/mm3 (3.60-5.2) 05/06/19 08:30 Hgb 12.2 GM/dL (10.7-15.3) 05/06/19 08:30 Hct 37.6 % (32.4-45.2) 05/06/19 08:30 MCV 86.2 fl (80-96) 05/06/19 08:30 MCH 28.0 pg (25.7-33.7) 05/06/19 08:30 MCHC 32.4 g/dl (32.0-36.0) 05/06/19 08:30 RDW 14.2 % (11.6-15.6) 05/06/19 08:30 Plt Count 194 K/MM3 (134-434) D 05/06/19 08:30 MPV 9.1 fl (7.5-11.1) 05/06/19 08:30 Sodium 141 mmol/L (136-145) 05/06/19 08:30 Potassium 3.9 mmol/L (3.5-5.1) 05/06/19 08:30 Chloride 106 mmol/L (98-107) 05/06/19 08:30 Carbon Dioxide 31 mmol/L (21-32) 05/06/19 08:30 Anion Gap 4 MMOL/L (8-16) L 05/06/19 08:30 BUN 11.0 mg/dL (7-18) 05/06/19 08:30 Creatinine 0.5 mg/dL (0.55-1.3) L 05/06/19 08:30 Est GFR (CKD-EPI)AfAm 132.65 05/06/19 08:30 Est GFR (CKD-EPI)NonAf 114.45 05/06/19 08:30 Random Glucose 81 mg/dL (74-106) 05/06/19 08:30 Calcium 9.0 mg/dL (8.5-10.1) 05/06/19 08:30 Total Bilirubin 0.3 mg/dL (0.2-1) 05/06/19 08:30 AST 16 U/L (15-37) 05/06/19 08:30 ALT 15 U/L (13-61) 05/06/19 08:30 Alkaline Phosphatase 75 U/L (45-117) 05/06/19 08:30 Total Protein 6.1 g/dl (6.4-8.2) L 05/06/19 08:30 Albumin 3.0 g/dl (3.4-5.0) L 05/06/19 08:30 POC Urine HCG, Qual Negative 05/05/19 21:35 Assessment: 05/08/19 13:47 withdrawal symptom Plan: continue detox librium regimen
--- NOTE | 2019-05-08 14:00 | PN ---
[facility] Progress Note Note: Psychiatry Attending's note : Approached by patient. Reason : dosage of seroquel. Ms Pittman requests 200 mg/hs as her usual dose. Confirmed by review of records at [facility]. Patient is observed as ambulatory, steady. Normal vitals. Plan : seroquel 200 mg po hs (D/C seroquel 100 mg/hs). Side effecst/benefits discussed with the patient. Ms Pittman agrees.
[2019-05-08] MEDS: traZODone HCL 50 MG TABLET (FP) PO SCH (22:23)
[2019-05-08] MEDS: THIAMINE HCL 100 MG TABLET (FP) PO SCH (22:23)
[2019-05-08] MEDS: QUEtiapine FUMARATE 200 MG TABLET PO SCH (22:23)
[2019-05-09] MEDS ORDERED: METHADONE HCL 40 MG DISPERSABLE TABLET ONE (04:46)
[2019-05-09] MEDS ORDERED: METHADONE HCL 10 MG TABLET ONE (04:46)
[2019-05-09] MEDS: chlordiazePOXIDE HCL 10 MG CAPSULE PO SCH ×2 (05:35→18:00)
[2019-05-09] MEDS: METHADONE 80 MG, METHADONE 20 MG PO SCH (05:35)
[2019-05-09] MEDS: PRENATAL VITAMINS W/ FOLIC ACID TABLET (FP) PO SCH (10:40)
[2019-05-09] MEDS: NICOTINE 14 MG/24 HOURS TOPICAL PATCH TD SCH (10:41)
--- NOTE | 2019-05-09 16:58 | PN ---
S CIWA - CIWA Score Nausea/Vomitin-No Nausea/No Vomiting Muscle Tremors: None Anxiety: 0-No Anxiety, at Ease Agitation: 2 Paroxysmal Sweats: No Perspiration Orientation: 2-Disoriented Date<2 days Tacttile Disturbances: 0-None Auditory Disturbances: 0-None Visual Disturbances: 0-None Headache: 0-None Present CIWA-Ar Total Score: 4 BHS Progress Note (SOAP) Subjective: Patient denies current Withdrawal / Detox symptoms and reports that she feels well overall at this time. Objective: PATIENT A & O X 2 (UNCERTAIN ABOUT CURRENT DAY / DATE). PATIENT OBSERVED AMBULATING ON DETOX UNIT UNASSISTED. IN NO ACUTE DISTRESS. 05/09/19 16:57 Vital Signs Temperature 97.0 F L 05/09/19 09:34 Pulse Rate 76 05/09/19 09:34 Respiratory Rate 18 05/09/19 09:34 Blood Pressure 109/81 05/09/19 09:34 O2 Sat by Pulse Oximetry (%) Laboratory Tests 05/05/19 05/06/19 05/06/19 21:35 08:30 08:30 WBC 4.0 RBC 4.37 Hgb 12.2 Hct 37.6 MCV 86.2 MCH 28.0 MCHC 32.4 RDW 14.2 Plt Count 194 D MPV 9.1 Sodium 141 Potassium 3.9 Chloride 106 Carbon Dioxide 31 Anion Gap 4 L BUN 11.0 Creatinine 0.5 L Est GFR (CKD-EPI)AfAm 132.65 Est GFR (CKD-EPI)NonAf 114.45 Random Glucose 81 Calcium 9.0 Total Bilirubin 0.3 AST 16 ALT 15 Alkaline Phosphatase 75 Total Protein 6.1 L Albumin 3.0 L POC Urine HCG, Qual Negative LABS NOTED. Assessment: 05/09/19 16:57 WITHDRAWAL SYMPTOMS. Plan: CONTINUE DETOX. PATIENT SCHEDULED FOR D/C FROM DETOX UNIT TOMORROW.
[2019-05-09] MEDS: QUEtiapine FUMARATE 200 MG TABLET PO SCH (22:32)
[2019-05-09] MEDS: THIAMINE HCL 100 MG TABLET (FP) PO SCH (22:32)
[2019-05-09] MEDS: traZODone HCL 50 MG TABLET (FP) PO SCH (22:32)
[2019-05-10] MEDS ORDERED: METHADONE HCL 40 MG DISPERSABLE TABLET ONE (04:43)
[2019-05-10] MEDS ORDERED: METHADONE HCL 10 MG TABLET ONE (04:43)
[2019-05-10] MEDS ORDERED: chlordiazePOXIDE HCL 10 MG CAPSULE PO ONE (05:00)
[2019-05-10] MEDS: METHADONE 80 MG, METHADONE 20 MG PO SCH (05:40)
[2019-05-10 09:42] VITALS: BP 99/66; PULSE 79; TEMP 97.1
--- NOTE | 2019-05-10 10:07 | DS ---
[facility] Detox Discharge Summary Admission Date: 05/05/19 Discharge Date: 05/10/19 - History Present History: Alcohol Dependence Additional Comments: 48 years old female multiple patient [facility] [place] admission since 2017 was admitted on 05/05/19 for alcohol withdrawal sx management did well with libirum deox regimen no complication through out the detox stay seen by psychiatrist begin seroquel and trazodone alert oriented x 3 clear lung sound abdomen soft no rebound tenderness extremities full range of motion skin warm dry - Physical Exam Results Vital Signs: Vital Signs Temperature 97.1 F L 05/10/19 09:41 Pulse Rate 79 05/10/19 09:41 Respiratory Rate 18 05/10/19 09:41 Blood Pressure 99/66 05/10/19 09:41 O2 Sat by Pulse Oximetry (%) Pertinent Admission Physical Exam Findings: alcohol withdrawal sx Laboratory Last Values WBC 4.0 K/mm3 (4.0-10.0) 05/06/19 08:30 RBC 4.37 M/mm3 (3.60-5.2) 05/06/19 08:30 Hgb 12.2 GM/dL (10.7-15.3) 05/06/19 08:30 Hct 37.6 % (32.4-45.2) 05/06/19 08:30 MCV 86.2 fl (80-96) 05/06/19 08:30 MCH 28.0 pg (25.7-33.7) 05/06/19 08:30 MCHC 32.4 g/dl (32.0-36.0) 05/06/19 08:30 RDW 14.2 % (11.6-15.6) 05/06/19 08:30 Plt Count 194 K/MM3 (134-434) D 05/06/19 08:30 MPV 9.1 fl (7.5-11.1) 05/06/19 08:30 Sodium 141 mmol/L (136-145) 05/06/19 08:30 Potassium 3.9 mmol/L (3.5-5.1) 05/06/19 08:30 Chloride 106 mmol/L (98-107) 05/06/19 08:30 Carbon Dioxide 31 mmol/L (21-32) 05/06/19 08:30 Anion Gap 4 MMOL/L (8-16) L 05/06/19 08:30 BUN 11.0 mg/dL (7-18) 05/06/19 08:30 Creatinine 0.5 mg/dL (0.55-1.3) L 05/06/19 08:30 Est GFR (CKD-EPI)AfAm 132.65 05/06/19 08:30 Est GFR (CKD-EPI)NonAf 114.45 05/06/19 08:30 Random Glucose 81 mg/dL (74-106) 05/06/19 08:30 Calcium 9.0 mg/dL (8.5-10.1) 05/06/19 08:30 Total Bilirubin 0.3 mg/dL (0.2-1) 05/06/19 08:30 AST 16 U/L (15-37) 05/06/19 08:30 ALT 15 U/L (13-61) 05/06/19 08:30 Alkaline Phosphatase 75 U/L (45-117) 05/06/19 08:30 Total Protein 6.1 g/dl (6.4-8.2) L 05/06/19 08:30 Albumin 3.0 g/dl (3.4-5.0) L 05/06/19 08:30 POC Urine HCG, Qual Negative 05/05/19 21:35 lab noted - Treatment Hospital Course: Detox Protocol Followed, Detoxed Safely, Responded well, Discharged Condition Good, Rehab Referral Accepted Patient has Accepted [facility] Referral [facility] - Medication Discharge Medications: Ambulatory Orders Quetiapine Fumarate [Seroquel -] 200 mg PO HS #30 tablet 02/18/19 Albuterol Sulfate Inhaler - [Ventolin HFA Inhaler -] 2 puff IH Q4H PRN #1 inhaler 05/09/19 - Diagnosis (1) Alcohol dependence with uncomplicated withdrawal Current Visit: Yes Status: Acute (2) Methadone maintenance therapy patient Current Visit: Yes Status: Chronic (3) Nicotine dependence Current Visit: Yes Status: Acute Qualifiers: Nicotine product type: cigarettes Substance use status: in withdrawal Qualified Code(s): F17.213 - Nicotine dependence, cigarettes, with withdrawal (4) Weight loss Current Visit: Yes Status: Acute (5) Hepatitis C Current Visit: Yes Status: Chronic Qualifiers: Viral hepatitis chronicity: carrier Qualified Code(s): B18.2 - Chronic viral hepatitis C (6) Substance induced mood disorder Current Visit: Yes Status: Suspected - AMA Did Patient Leave Against Medical Advice: No CIWA Score - CIWA Score Nausea/Vomitin-No Nausea/No Vomiting Muscle Tremors: None Anxiety: 0-No Anxiety, at Ease Agitation: 1-Slight > Activity Paroxysmal Sweats: No Perspiration Orientation: 1-Uncertain about Date (to day of the month) Tacttile Disturbances: 0-None Auditory Disturbances: 0-None Visual Disturbances: 0-None Headache: 0-None Present CIWA-Ar Total Score: 2
[2019-05-10] MEDS: PRENATAL VITAMINS W/ FOLIC ACID TABLET (FP) PO SCH (10:48)
[2019-05-10] MEDS: NICOTINE 14 MG/24 HOURS TOPICAL PATCH TD SCH (10:48)
== END 2019-05-10 13:08 | disposition other institution (70) | DRG 773 ==
LOC: YASAS 14:56 → Y3N 23:17
PROVIDERS: ADMIT Surgery; ATTEND Surgery
PROC: HZ2ZZZZ Detoxification Services for Substance Abuse Treatment (ICD-10-PCS; principal; 2019-05-05)
DX: F10.230 Alcohol dependence with withdrawal, uncomplicated (principal); F11.20 Opioid dependence, uncomplicated; F14.20 Cocaine dependence, uncomplicated; F12.20 Cannabis dependence, uncomplicated; F17.213 Nicotine dependence, cigarettes, with withdrawal; F19.24 Other psychoactive substance dependence with psychoactive substance-induced mood disorder; F19.282 Other psychoactive substance dependence with psychoactive substance-induced sleep disorder; F34.1 Dysthymic disorder; F39 Unspecified mood [affective] disorder; F41.9 Anxiety disorder, unspecified; B18.2 Chronic viral hepatitis C; R63.4 Abnormal weight loss; J45.909 Unspecified asthma, uncomplicated; Z91.19 Patient's noncompliance with other medical treatment and regimen; Z86.69 Personal history of other diseases of the nervous system and sense organs
CPT/HCPCS: 36415; 80053; 81025; 85027

== ENCOUNTER 2019-05-10 14:32 | Inpatient (IN) | payer OTHER ==
--- NOTE | 2019-05-10 10:14 | HP ---
[facility] Rehab Assess/Revision - Admission History Admitted to Rehab from: [facility] Date of Admission to Rehab: 05/10/19 - Findings Detox History & Physical reviewed: Yes Concur with findings: Yes Comments/Additional Findings: tranferred from detox to rehab admission as per protocol Inpatient Rehab Admission - Rehab Decision to Admit Inpatient rehab admission?: Yes - Initial Determination Are CD services needed?: Yes Free of communicable disease: Yes Not in need of hospitalization: Yes - Rehab Admission Criteria Previous failed treatment: Yes Poor recovery environment: Yes Comorbidities: Yes Lacks judgement: Yes Patient is meeting Inpatient Rehab admission criteria:: Yes
[~2019-05-10 14:32] MED LIST: ACETAMINOPHEN 325 MG TABLET (FP) PO PRN; ALBUTEROL SO4 8 GM HFA INHALER IH PRN; IBUPROFEN 400 MG TABLET (FP) PO PRN; LOPERAMIDE HCL 2 MG CAPSULE PO PRN; MAG HYDROX/AL HYDROX/SIMETH 30 ML UNIT-DOSE CUP PO PRN; MAGNESIUM CITRATE 300 ML BOTTLE PO PRN; MAGNESIUM HYDROX 2400MG/30ML ORAL SUSPENSION 30 ML CUP PO PRN; MENTHOL/PHENOL 1 EACH UD MM PRN; NICOTINE POLACRILEX 2 MG GUM BC PRN; P-EPHED 60MG/TRIPROLIDI 2.5MG TABLET PO PRN; guaiFENesin 200 MG/10 ML 10 ML UNIT-DOSE CUPS PO PRN
[2019-05-10] MEDS: THIAMINE HCL 100 MG TABLET (FP) PO SCH (21:07)
[2019-05-10] MEDS: QUEtiapine FUMARATE 200 MG TABLET PO SCH (21:07)
[2019-05-10] MEDS: traZODone HCL 50 MG TABLET (FP) PO SCH (21:07)
[2019-05-10] MEDS: MELATONIN 5 MG TABLETS PO PRN (21:07)
[2019-05-11] MEDS ORDERED: METHADONE HCL 10 MG TABLET ONE (05:29)
[2019-05-11] MEDS ORDERED: METHADONE HCL 40 MG DISPERSABLE TABLET ONE (05:30)
[2019-05-11] MEDS: METHADONE 80 MG, METHADONE 20 MG PO SCH (05:59)
[2019-05-11] MEDS ORDERED: METHADONE HCL 40 MG DISPERSABLE TABLET PO SCH (06:00)
[2019-05-11] MEDS: NICOTINE 14 MG/24 HOURS TOPICAL PATCH TD SCH (10:03)
[2019-05-11] MEDS: PRENATAL VITAMINS W/ FOLIC ACID TABLET (FP) PO SCH (10:04)
[2019-05-11] MEDS: COLLOIDAL OATMEAL 1 BAR EACH TP PRN (18:06)
[2019-05-11] MEDS: THIAMINE HCL 100 MG TABLET (FP) PO SCH (21:36)
[2019-05-11] MEDS: traZODone HCL 50 MG TABLET (FP) PO SCH (21:36)
[2019-05-11] MEDS: QUEtiapine FUMARATE 200 MG TABLET PO SCH (21:36)
[2019-05-12] MEDS ORDERED: METHADONE HCL 40 MG DISPERSABLE TABLET ONE (05:36)
[2019-05-12] MEDS ORDERED: METHADONE HCL 10 MG TABLET ONE (05:36)
[2019-05-12] MEDS: METHADONE 80 MG, METHADONE 20 MG PO SCH (06:20)
[2019-05-12] MEDS: PRENATAL VITAMINS W/ FOLIC ACID TABLET (FP) PO SCH (10:18)
[2019-05-12] MEDS: NICOTINE 14 MG/24 HOURS TOPICAL PATCH TD SCH (10:21)
[2019-05-12] MEDS: QUEtiapine FUMARATE 200 MG TABLET PO SCH (21:26)
[2019-05-12] MEDS: THIAMINE HCL 100 MG TABLET (FP) PO SCH (21:26)
[2019-05-12] MEDS: traZODone HCL 50 MG TABLET (FP) PO SCH (21:26)
[2019-05-13] MEDS ORDERED: METHADONE HCL 10 MG TABLET ONE (05:36)
[2019-05-13] MEDS ORDERED: METHADONE HCL 40 MG DISPERSABLE TABLET ONE (05:36)
[2019-05-13] MEDS: METHADONE 80 MG, METHADONE 20 MG PO SCH (05:58)
[2019-05-13] MEDS: NICOTINE 14 MG/24 HOURS TOPICAL PATCH TD SCH (10:05)
[2019-05-13] MEDS: PRENATAL VITAMINS W/ FOLIC ACID TABLET (FP) PO SCH (10:15)
[2019-05-13] MEDS: THIAMINE HCL 100 MG TABLET (FP) PO SCH (21:31)
[2019-05-13] MEDS: QUEtiapine FUMARATE 200 MG TABLET PO SCH (21:31)
[2019-05-13] MEDS: MELATONIN 5 MG TABLETS PO PRN (21:31)
[2019-05-13] MEDS: traZODone HCL 50 MG TABLET (FP) PO SCH (21:31)
[2019-05-13] MEDS: COLLOIDAL OATMEAL 1 BAR EACH TP PRN (21:32)
[2019-05-14] MEDS ORDERED: METHADONE HCL 10 MG TABLET ONE (05:56)
[2019-05-14] MEDS ORDERED: METHADONE HCL 40 MG DISPERSABLE TABLET ONE (05:56)
[2019-05-14] MEDS: METHADONE 80 MG, METHADONE 20 MG PO SCH (06:04)
[2019-05-14] MEDS: NICOTINE 14 MG/24 HOURS TOPICAL PATCH TD SCH (09:50)
[2019-05-14] MEDS: PRENATAL VITAMINS W/ FOLIC ACID TABLET (FP) PO SCH (09:50)
[2019-05-14] MEDS: QUEtiapine FUMARATE 200 MG TABLET PO SCH (21:35)
[2019-05-14] MEDS: THIAMINE HCL 100 MG TABLET (FP) PO SCH (21:35)
[2019-05-14] MEDS: traZODone HCL 50 MG TABLET (FP) PO SCH (21:35)
[2019-05-14] MEDS: MELATONIN 5 MG TABLETS PO PRN (21:35)
[2019-05-15] MEDS ORDERED: METHADONE HCL 10 MG TABLET ONE (05:36)
[2019-05-15] MEDS ORDERED: METHADONE HCL 40 MG DISPERSABLE TABLET ONE (05:36)
[2019-05-15] MEDS: METHADONE 80 MG, METHADONE 20 MG PO SCH (06:13)
[2019-05-15] MEDS: NICOTINE 14 MG/24 HOURS TOPICAL PATCH TD SCH (10:54)
[2019-05-15] MEDS: PRENATAL VITAMINS W/ FOLIC ACID TABLET (FP) PO SCH (10:54)
[2019-05-15] MEDS: QUEtiapine FUMARATE 200 MG TABLET PO SCH (21:27)
[2019-05-15] MEDS: MELATONIN 5 MG TABLETS PO PRN (21:27)
[2019-05-15] MEDS: traZODone HCL 50 MG TABLET (FP) PO SCH (21:27)
[2019-05-15] MEDS: THIAMINE HCL 100 MG TABLET (FP) PO SCH (21:27)
[2019-05-16] MEDS ORDERED: METHADONE HCL 40 MG DISPERSABLE TABLET ONE (05:34)
[2019-05-16] MEDS ORDERED: METHADONE HCL 10 MG TABLET ONE (05:34)
[2019-05-16] MEDS: METHADONE 80 MG, METHADONE 20 MG PO SCH (05:58)
[2019-05-16] MEDS: NICOTINE 14 MG/24 HOURS TOPICAL PATCH TD SCH (10:00)
[2019-05-16] MEDS: PRENATAL VITAMINS W/ FOLIC ACID TABLET (FP) PO SCH (10:00)
[2019-05-16] MEDS: traZODone HCL 50 MG TABLET (FP) PO SCH (21:27)
[2019-05-16] MEDS: THIAMINE HCL 100 MG TABLET (FP) PO SCH (21:27)
[2019-05-16] MEDS: MELATONIN 5 MG TABLETS PO PRN (21:28)
[2019-05-16] MEDS: QUEtiapine FUMARATE 200 MG TABLET PO SCH (21:28)
[2019-05-16] MEDS: COLLOIDAL OATMEAL 1 BAR EACH TP PRN (21:29)
[2019-05-17] MEDS ORDERED: METHADONE HCL 40 MG DISPERSABLE TABLET ONE (04:15)
[2019-05-17] MEDS ORDERED: METHADONE HCL 10 MG TABLET ONE (04:15)
[2019-05-17] MEDS: METHADONE 80 MG, METHADONE 20 MG PO SCH (06:02)
[2019-05-17] MEDS: PRENATAL VITAMINS W/ FOLIC ACID TABLET (FP) PO SCH (10:00)
[2019-05-17] MEDS: NICOTINE 14 MG/24 HOURS TOPICAL PATCH TD SCH (10:00)
[2019-05-17] MEDS: traZODone HCL 50 MG TABLET (FP) PO SCH (21:27)
[2019-05-17] MEDS: MELATONIN 5 MG TABLETS PO PRN (21:27)
[2019-05-17] MEDS: THIAMINE HCL 100 MG TABLET (FP) PO SCH (21:27)
[2019-05-17] MEDS: QUEtiapine FUMARATE 200 MG TABLET PO SCH (21:27)
[2019-05-18] MEDS ORDERED: METHADONE HCL 10 MG TABLET ONE (05:59)
[2019-05-18] MEDS ORDERED: METHADONE HCL 40 MG DISPERSABLE TABLET ONE (05:59)
[2019-05-18] MEDS: METHADONE 80 MG, METHADONE 20 MG PO SCH (06:22)
[2019-05-18] MEDS: NICOTINE 14 MG/24 HOURS TOPICAL PATCH TD SCH (10:39)
[2019-05-18] MEDS: PRENATAL VITAMINS W/ FOLIC ACID TABLET (FP) PO SCH (10:39)
[2019-05-18] MEDS: QUEtiapine FUMARATE 200 MG TABLET PO SCH (21:13)
[2019-05-18] MEDS: THIAMINE HCL 100 MG TABLET (FP) PO SCH (21:13)
[2019-05-18] MEDS: traZODone HCL 50 MG TABLET (FP) PO SCH (21:13)
[2019-05-19] MEDS ORDERED: METHADONE HCL 10 MG TABLET ONE (03:26)
[2019-05-19] MEDS ORDERED: METHADONE HCL 40 MG DISPERSABLE TABLET ONE (03:27)
[2019-05-19] MEDS: METHADONE 80 MG, METHADONE 20 MG PO SCH (06:29)
[2019-05-19] MEDS: NICOTINE 14 MG/24 HOURS TOPICAL PATCH TD SCH (09:55)
[2019-05-19] MEDS: PRENATAL VITAMINS W/ FOLIC ACID TABLET (FP) PO SCH (09:55)
[2019-05-19] MEDS: MELATONIN 5 MG TABLETS PO PRN (21:00)
[2019-05-19] MEDS: MINERAL OIL/PETROLAT/WATER TOPICAL CREAM 113 GM JAR TP SCH (21:00)
[2019-05-19] MEDS: QUEtiapine FUMARATE 200 MG TABLET PO SCH (21:00)
[2019-05-19] MEDS: traZODone HCL 50 MG TABLET (FP) PO SCH (21:00)
[2019-05-19] MEDS: THIAMINE HCL 100 MG TABLET (FP) PO SCH (21:00)
[2019-05-20] MEDS ORDERED: METHADONE HCL 10 MG TABLET ONE (03:14)
[2019-05-20] MEDS ORDERED: METHADONE HCL 40 MG DISPERSABLE TABLET ONE (03:14)
[2019-05-20] MEDS: METHADONE 80 MG, METHADONE 20 MG PO SCH (06:21)
[2019-05-20] MEDS ORDERED: PT OWN MED DRAWER 7, Y5N ONE (08:50)
[2019-05-20] MEDS: PRENATAL VITAMINS W/ FOLIC ACID TABLET (FP) PO SCH (09:39)
[2019-05-20] MEDS: COLLOIDAL OATMEAL 1 BAR EACH TP PRN (09:40)
[2019-05-20] MEDS: NICOTINE 14 MG/24 HOURS TOPICAL PATCH TD SCH (09:41)
[2019-05-20] MEDS: MINERAL OIL/PETROLAT/WATER TOPICAL CREAM 113 GM JAR TP SCH ×2 (09:41→21:43)
[2019-05-20] MEDS: QUEtiapine FUMARATE 200 MG TABLET PO SCH (21:42)
[2019-05-20] MEDS: THIAMINE HCL 100 MG TABLET (FP) PO SCH (21:42)
[2019-05-20] MEDS: traZODone HCL 50 MG TABLET (FP) PO SCH (21:42)
[2019-05-21] MEDS ORDERED: METHADONE HCL 10 MG TABLET ONE (03:31)
[2019-05-21] MEDS ORDERED: METHADONE HCL 40 MG DISPERSABLE TABLET ONE (03:31)
[2019-05-21] MEDS: METHADONE 80 MG, METHADONE 20 MG PO SCH (06:33)
[2019-05-21] MEDS: NICOTINE 14 MG/24 HOURS TOPICAL PATCH TD SCH (09:34)
[2019-05-21] MEDS: PRENATAL VITAMINS W/ FOLIC ACID TABLET (FP) PO SCH (09:51)
[2019-05-21] MEDS: MINERAL OIL/PETROLAT/WATER TOPICAL CREAM 113 GM JAR TP SCH ×2 (09:51→21:41)
[2019-05-21] MEDS: QUEtiapine FUMARATE 200 MG TABLET PO SCH (21:40)
[2019-05-21] MEDS: traZODone HCL 50 MG TABLET (FP) PO SCH (21:40)
[2019-05-21] MEDS: THIAMINE HCL 100 MG TABLET (FP) PO SCH (21:40)
[2019-05-22] MEDS ORDERED: METHADONE HCL 40 MG DISPERSABLE TABLET ONE (07:01)
[2019-05-22] MEDS ORDERED: METHADONE HCL 10 MG TABLET ONE (07:01)
[2019-05-22] MEDS: METHADONE 80 MG, METHADONE 20 MG PO SCH (07:02)
[2019-05-22 07:36] VITALS: BP 110/75; PULSE 88; TEMP 98.2
[2019-05-22] MEDS ORDERED: PT OWN MED DRAWER 7, Y5N ONE (08:38)
--- NOTE | 2019-05-22 08:52 | PN ---
S Progress Note Note: Psychiatric nurse practitioner note: Patient scheduled for discharge today. A 30 day prescription of Seroquel 200mg HS + Trazodone 50mg HS was electronically sent to [facility] at [address] [place] [address].
== END 2019-05-22 08:50 | disposition home or self-care (01) | DRG 772 ==
LOC: YASAS 14:32 → Y3W 14:33 → Y3E 05-18 18:29
PROVIDERS: ADMIT Neuromusculoskeletal Medicine & OMM; ATTEND Neuromusculoskeletal Medicine & OMM
PROC: HZ42ZZZ Group Counseling for Substance Abuse Treatment, Cognitive-Behavioral (ICD-10-PCS; principal; 2019-05-10)
DX: F10.230 Alcohol dependence with withdrawal, uncomplicated (principal); F11.20 Opioid dependence, uncomplicated; F14.20 Cocaine dependence, uncomplicated; F12.20 Cannabis dependence, uncomplicated; F17.210 Nicotine dependence, cigarettes, uncomplicated; F19.24 Other psychoactive substance dependence with psychoactive substance-induced mood disorder; F19.282 Other psychoactive substance dependence with psychoactive substance-induced sleep disorder; F34.1 Dysthymic disorder; F39 Unspecified mood [affective] disorder; F41.9 Anxiety disorder, unspecified; B18.2 Chronic viral hepatitis C; J45.909 Unspecified asthma, uncomplicated; R63.4 Abnormal weight loss; Z86.69 Personal history of other diseases of the nervous system and sense organs; Z59.0 Homelessness; Z68.23 Body mass index [BMI] 23.0-23.9, adult